=== PATIENT | female | born 1990 ===

== ENCOUNTER 2017-06-20 18:52 | Emergency (ER) | payer MEDICAID ==
[2017-06-20 18:53] VITALS: BMI 21.5
[2017-06-20 19:07] VITALS: TEMP 98.2
--- NOTE | 2017-06-20 19:53 | C.PDOC ---
History Of Present Illness Patient presents to the ED for evaluation after having a syncopal episode this morning. Patient states she woke up and was able to stand up around her bed. Shortly after, she found herself on the floor next to her bed and dresser. Patient notes she was able to attend her doctor's appointment later today. Patient notes she has been experiencing dizziness and presents for further evaluation. She denies head injury, vision change, nausea, vomiting. Time Seen by Provider: 06/20/17 19:52 Chief Complaint (Nursing): Dizziness/Lightheaded History Per: Patient History/Exam Limitations: no limitations Onset/Duration Of Symptoms: Hrs Current Symptoms Are (Timing): Better Number Of Syncopal Episodes: 1 Activity At Onset Of Symptoms: Standing Associated Symptoms Preceding Syncopal Episode: No Predromal Symptoms (Sudden Onset) Seizure Or Post-ictal Symptoms: None Fall Associated With With Symptoms: No Injury As Result Of Fall Severity: Mild Pain Scale Rating Of: 4 Additional History Per: Patient - Symptoms Of CVA Associated Symptoms: denies: New Vision Deficit(Left), New Vision Deficit(Right) Past Medical History Reviewed: Historical Data, Nursing Documentation, Vital Signs Vital Signs: Last Vital Signs Temp 98.2 F 06/20/17 20:19 Pulse 74 06/20/17 22:30 Resp 16 06/20/17 22:30 BP 123/79 06/20/17 22:30 Pulse Ox 100 06/20/17 22:30 - Medical History PMH: Anemia, Anxiety, Arthritis, Asthma, Back Problems, CAD, CVA (x 3, Protein C /S deficiency), Depression, HTN, Hypercholesterolemia, Hyperlipidemia, Migraine , Schizophrenia, Seizures, Sickle Cell Disease, TIA, Chronic Pain Surgical History: No Surg Hx - [facility] Procedures INJECT/INFUSE NEC (02/07/15) MONITORING OF POC, CARDIAC RATE, SOCIAL INSURANCE ADVISER APPROACH (11/22/15) TETANUS TOXOID ADMINIST (10/26/13) Family History: States: [place] - Social History Hx Tobacco Use: Yes (light smoker) Hx Alcohol Use: No Hx Substance Use: No - Immunization History Hx Tetanus Toxoid Vaccination: Yes Hx Influenza Vaccination: No Hx Pneumococcal Vaccination: Yes Review Of Systems Eyes: Negative for: Vision Change Gastrointestinal: Negative for: Nausea, Vomiting Musculoskeletal: Negative for: Neck Pain, Shoulder Pain, Back Pain Skin: Negative for: Rash, Lesions, Jaundice, Bruising Neurological: Positive for: Dizziness. Negative for: Weakness, Numbness, Change in Speech, Confusion, Seizures, Altered Mental Status, Headache Physical Exam - Physical Exam Appears: Non-toxic, No Acute Distress Skin: Warm, Dry Head: Normacephalic, No Other (crepitus ) Eye(s): bilateral: Normal Inspection, PERRL, EOMI, Other (no nystagmus ) Oral Mucosa: Moist Neck: Supple Cardiovascular: Rhythm Regular, No Murmur Respiratory: No Rales, No Rhonchi, No Wheezing Gastrointestinal/Abdominal: Soft, No Tenderness, No Guarding, No Rebound Back: No Vertebral Tenderness, No Decreased ROM Extremity: No Tenderness, Capillary Refill (less than 2 seconds ), No Deformity Neurological/Psych: Oriented x3, Normal Speech, Normal Cognition, No Romberg Gait: Steady ED Course And Treatment - Laboratory Results Result Diagrams: 06/20/17 20:26 06/20/17 20:26 ECG: Interpreted By Me, Viewed By Me ECG Rhythm: Sinus Rhythm (73), Nonspecific Changes O2 Sat by Pulse Oximetry: 99 (on RA) Pulse Ox Interpretation: Normal Progress Note: labs, CT Head, and EKG ordered. pt's significant other states pt has not eaten the night befor and has been up all night. Patient states she feels fine and wants to go home. Offered observation, but pt states she just wants to go home. Is aware of risks as I've explained to her, including permanent disability and . Encouraged to return Reevaluation Time: 23:09 Reassessment Condition: Improved Medical Decision Making Medical Decision Making: Upon provider reevaluation patient is feeling better, is medically stable, and requires no further treatment in the ED at this time. Patient will be discharged home . Counseling was provided and all questions were answered regarding diagnosis and need for follow up with the referred clinic. There is agreement to discharge plan. Return if symptoms persist or worsen. Disposition Counseled Patient/Family Regarding: Studies Performed, Diagnosis, Need For Followup - Disposition Referrals: [facility] [Outside] [facility] [Outside] Disposition: HOME/ ROUTINE Disposition Time: 19:52 Condition: FAIR Additional Instructions: Please return if symptoms recur Instructions: Syncope (DC) Forms: [employer] (Georgian) - Clinical Impression Clinical Impression: Syncope - Scribe Statement The provider has reviewed the documentation as recorded by the Scribe (kayley Meza) Provider Attestation: All medical record entries made by the Scribe were at my direction and personally dictated by me. I have reviewed the chart and agree that the record accurately reflects my personal performance of the history, physical exam, medical decision making, and the department course for this patient. I have also personally directed, reviewed, and agree with the discharge instructions and disposition.
[2017-06-20 20:31] LABS: BASO % 0.6 % (0.0-2.0); EOS # 0.3 K/uL (0.0-0.7); EOS % 3.8 % (0.0-4.0); HEMATOCRIT 37.5 % (34.0-47.0); LYMPH # 1.5 K/uL (1.0-4.3); LYMPH % 22.5 % (20.0-40.0); MEAN CELL VOLUME 83.6 fL (81.0-99.0); MEAN CORPUSCULAR HEMOGLOBIN 27.8 pg (27.0-31.0); MEAN CORPUSCULAR HGB CONC 33.2 g/dL (33.0-37.0); MEAN PLATELET VOLUME 7.8 fL (7.2-11.7); MONO # 0.7 K/uL (0.0-0.8); MONO % 10.1 % (0.0-10.0); RED CELL DISTRIBUTION WIDTH 13.1 % (11.5-14.5); WHITE BLOOD COUNT 6.9 K/uL (4.8-10.8)
[2017-06-20 20:39] LABS: RBC URINE < 1 /hpf (0-3); URINE BILIRUBIN NEGATIVE (NEGATIVE); URINE BLOOD NEGATIVE (NEGATIVE); URINE COLOR Yellow (YELLOW); URINE GLUCOSE (UA) NORMAL (Normal); URINE KETONE NEGATIVE (NEGATIVE); URINE LEUKOCYTE ESTERASE NEG Leu/uL (Negative); URINE PROTEIN NEGATIVE (NEGATIVE); URINE UROBILINOGEN NORMAL mg/dL (0.2-1.0); WBC URINE 1 /hpf (0-5)
[2017-06-20 20:41] LABS: CHLORIDE 105 mmol/L (98-107); POTASSIUM 3.5 mmol/L (3.6-5.2); SODIUM 140 mmol/L (132-148)
[2017-06-20 20:43] LABS: GFR AFRICAN-AMERICAN > 60
[2017-06-20 20:44] LABS: ALB/GLOB RATIO 1.1 (1.0-2.1); ALKALINE PHOSPHATASE 69 U/L (38-126); AST/SGOT 20 U/L (14-36); BILIRUBIN,TOTAL 0.4 mg/dL (0.2-1.3); BLOOD UREA NITROGEN 6 mg/dL (7-17); CARBON DIOXIDE 25 mmol/L (22-30); TOTAL PROTEIN 6.6 g/dL (6.3-8.3)
[2017-06-20 20:45] LABS: CALCIUM 8.8 mg/dl (8.6-10.4)
[2017-06-20 21:07] LABS: ALT/SGPT 25 U/L (9-52); GLUCOSE,RANDOM 91 mg/dL (65-105)
--- NOTE | 2017-06-20 21:26 | CT ---
EXAM: CT Head Without Intravenous Contrast CLINICAL HISTORY: 27 years old, female; Signs and symptoms; Syncope and collapse TECHNIQUE: Axial computed tomography images of the head/brain without intravenous contrast. All CT scans at this facility use one or more dose reduction techniques, viz.: automated exposure control; ma/kV adjustment per patient size (including targeted exams where dose is matched to indication; i.e. head); or iterative reconstruction technique. EXAM DATE/TIME: 06/20/2017 8:11 PM COMPARISON: CT - HEAD W/O (CODE STROKE) 03/06/2016 6:54:54 PM FINDINGS: Brain: Ventricles are normal in size and configuration. There is no midline shift. There are no intra-axial or extra-axial mass lesions or areas of hemorrhage. There are no abnormal fluid collections. Ellison-white differentiation is maintained. Ventricles: See above. Bones: Cranial vault is intact. Soft tissues: unremarkable Sinuses: There is no acute sinusitis. Ears and mastoids: Middle ears and mastoids are unremarkable Orbits: Orbital contents are unremarkable. IMPRESSION: No acute intracranial abnormality
[2017-06-20 23:12] VITALS: O2SAT 99
[2017-06-20 23:30] VITALS: BP 100/68; PULSE 64; RESP 18
--- NOTE | 2017-06-23 20:48 | CARD ---
APPROVED REPORT EKG Measurement Heart [id number] <Conclusion> Normal sinus rhythm with sinus arrhythmia Normal ECG
== END 2017-06-20 23:00 | disposition home or self-care (01) ==
LOC: C.ER 18:52
DX: R55 Syncope and collapse (principal)

== ENCOUNTER 2017-07-22 17:06 | Observation (INO) | payer MEDICAID ==
[2017-07-22 17:07] VITALS: BMI 21.5
--- NOTE | 2017-07-22 17:52 | C.PDOC ---
History Of Present Illness <Catherine De Dios - Last Filed: 07/22/17 18:57> <Qasim Jansen - Last Filed: 07/22/17 20:19> 27 yo female w/PMHx of LLE DVT,substance abuser, come in for evaluation of left lower leg pain gradually developed for past week. Pt sts, noted some rash to left lower leg. Otherwise, pt denies known direct trauma or injury, fever, chills, headache, dizziness, neck pain, CP, SOB, dyspnea, diaphoresis, palpitation, abd. pain, N/V/D, denies weakness, sensory or vascular deficit to Left leg. Ambulate to ED, appears slightly high. (Catherine De Dios) left leg pain x1 week no swelling. ddimer elevated will admit for venous duplex in am. (Qasim Jansen) History Per: Patient <Catherine De Dios - Last Filed: 07/22/17 18:57> <Qasim Jansen - Last Filed: 07/22/17 20:19> Time Seen by Provider: 07/22/17 17:41 Chief Complaint (Nursing): Lower Extremity Problem/Injury Past Medical History Reviewed: Historical Data, Nursing Documentation, Vital Signs - Medical History PMH: Anemia, Anxiety, Arthritis, Asthma, Back Problems, CAD, CVA (x 3, Protein C /S deficiency), Depression, HTN, Hypercholesterolemia, Hyperlipidemia, Migraine , Schizophrenia, Seizures, Sickle Cell Disease, TIA, Chronic Pain Denies: Chronic Kidney Disease Family History: States: Unknown Family Hx, [place] - Social History Hx Tobacco Use: Yes (light smoker) Hx Alcohol Use: No Hx Substance Use: No - Immunization History Hx Tetanus Toxoid Vaccination: Yes Hx Influenza Vaccination: No Hx Pneumococcal Vaccination: Yes <Catherine De Dios - Last Filed: 07/22/17 18:57> Review Of Systems Except As Marked, All Systems Reviewed And Found Negative. Constitutional: Negative for: Fever, Chills ENT: Negative for: Throat Pain Cardiovascular: Negative for: Chest Pain, Palpitations Respiratory: Negative for: Cough, Shortness of Breath, Wheezing Gastrointestinal: Negative for: Nausea, Vomiting, Abdominal Pain Musculoskeletal: Positive for: Leg Pain. Negative for: Neck Pain, Back Pain Skin: Positive for: Rash Neurological: Negative for: Weakness, Numbness, Altered Mental Status, Headache , Dizziness <Catherine De Dios - Last Filed: 07/22/17 18:57> Physical Exam - Physical Exam Appears: Well, Non-toxic, No Acute Distress Skin: Normal Color, Warm, Dry, Rash (scattered macular erythematous rash to posterior aspect left calf/ankle. No flactulance.) Head: Normacephalic Eye(s): bilateral: PERRL Nose: No Flaring, No Discharge Oral Mucosa: Moist, No Drooling Tongue: Normal Appearing Lips: Normal Appearing Throat: No Erythema, No Drooling Neck: Supple Cardiovascular: Rhythm Regular, No Murmur, No JVD Respiratory: No Decreased Breath Sounds, No Accessory Muscle Use, No Stridor, No Wheezing Gastrointestinal/Abdominal: Soft, No Tenderness, No Distention, No Guarding Back: No CVA Tenderness Extremity: Normal ROM, Tenderness (mild over posterior aspect Left ankle), Calf Tenderness (Left , mild), Capillary Refill (less than 2sec to B/L LEs.), No Deformity, No Swelling Neurological/Psych: Oriented x3, Normal Motor, Normal Sensation, Normal Reflexes <Catherine De Diso - Last Filed: 07/22/17 18:57> ED Course And Treatment - Laboratory Results Result Diagrams: 07/22/17 18:19 07/22/17 18:19 Lab Interpretation: Normal O2 Sat by Pulse Oximetry: 100 Pulse Ox Interpretation: Normal Progress Note: Pt is resting comfortably in bed, not in any apparent distress., . Afebrile, hemodynamicaly stable. non-toxic. PulsEOx 100% RA. LLE: left calf pain, FAROM, no neurovascular deficits. Neurologicaly intact. Blood work review and appears normal. Doppler US LLE- pending. <Catherine De Dios - Last Filed: 07/22/17 18:57> - Laboratory Results Result Diagrams: 07/22/17 18:19 07/22/17 18:19 <Qasim Jansen - Last Filed: 07/22/17 20:19> Disposition - Disposition Disposition Time: 18:59 <Catherine De Dios - Last Filed: 07/22/17 18:57> <Qasim Jansen P - Last Filed: 07/22/17 20:19> - Disposition Condition: STABLE Forms: [employer] (Danish) - Clinical Impression Clinical Impression: Leg pain, left Physician Patient Turnover Patient Signed Over To: Qasim Jansen Handoff Comments: Doppler US LLE r/o DVT, re-eval, dispo <Catherine De Dios - Last Filed: 07/22/17 18:57>
[2017-07-22] MEDS ORDERED: Sodium Chloride 0.9% 1,000 ML IV ONE (17:53)
[2017-07-22 18:27] LABS: BASO % 0.4 % (0.0-2.0); EOS # 0.2 K/uL (0.0-0.7); EOS % 3.5 % (0.0-4.0); HEMATOCRIT 35.9 % (34.0-47.0); LYMPH # 1.4 K/uL (1.0-4.3); LYMPH % 20.7 % (20.0-40.0); MEAN CELL VOLUME 84.3 fL (81.0-99.0); MEAN CORPUSCULAR HEMOGLOBIN 27.5 pg (27.0-31.0); MEAN CORPUSCULAR HGB CONC 32.6 g/dL (33.0-37.0); MEAN PLATELET VOLUME 7.5 fL (7.2-11.7); MONO # 0.8 K/uL (0.0-0.8); MONO % 11.2 % (0.0-10.0); RED CELL DISTRIBUTION WIDTH 13.9 % (11.5-14.5); WHITE BLOOD COUNT 6.8 K/uL (4.8-10.8)
[2017-07-22 18:33] LABS: CHLORIDE 105 mmol/L (98-107); POTASSIUM 3.8 mmol/L (3.6-5.2); SODIUM 139 mmol/L (132-148)
[2017-07-22 18:36] LABS: BLOOD UREA NITROGEN 13 mg/dL (7-17); CARBON DIOXIDE 25 mmol/L (22-30); GFR AFRICAN-AMERICAN > 60
[2017-07-22 18:37] LABS: CALCIUM 8.3 mg/dl (8.6-10.4); GLUCOSE,RANDOM 96 mg/dL (65-105)
[2017-07-22] MEDS ORDERED: Sodium Chloride 0.9% 1,000 ML ONE (19:15)
[2017-07-22] MEDS ORDERED: Enoxaparin 40 mg Syringe SC ONE (22:22)
[2017-07-22 23:58] VITALS: O2SAT 100
[2017-07-23 08:31] VITALS: BP 119/81; PULSE 74; RESP 20; TEMP 97
--- NOTE | 2017-07-23 13:13 | VASCLAB ---
PROCEDURE: Lower Extremity Venous Duplex Exam. HISTORY: Left lower leg pain, redness PRIORS: None. TECHNIQUE: Bilateral common femoral, femoral, popliteal and posterior tibial, peroneal and great saphenous veins were evaluated. Flow was assessed with color Doppler, compressibility, assessment of phasic flow and augmentation response. Report prepared by Kyle Ambrose, ALISON, RVT FINDINGS: RIGHT: 1. Common Femoral Vein: 1.1. Compressibility - Fully compressible: Thrombus - None : Flow - Phasic: Augmentation -Normal: Reflux - None. 2. Femoral Vein: 2.1. Compressibility - Fully compressible: Thrombus - None : Flow - Phasic: Augmentation -Normal: Reflux - None. 3. Popliteal Vein: 3.1. Compressibility - Fully compressible: Thrombus - None : Flow - Phasic: Augmentation -Normal: Reflux - None. 4. Posterior Tibial Vein: 4.1. Compressibility - Fully compressible: Thrombus - None: Flow - Phasic: Augmentation -Normal: Reflux - None. 5. Peroneal Vein: 5.1. Compressibility - Fully compressible: Thrombus - None: Flow - Phasic: Augmentation -Normal: Reflux - None. 6. Great Saphenous Vein: 6.1. Compressibility - Fully compressible: Thrombus - None: Flow - Phasic: Augmentation - Normal: Reflux - None. LEFT: 1. Common Femoral Vein: 1.1. Compressibility - Fully compressible: Thrombus - None: Flow - Phasic: Augmentation -Normal: Reflux - None. 2. Femoral Vein: 2.1. Compressibility - Fully compressible: Thrombus - None: Flow - Phasic: Augmentation -Normal: Reflux - None. 3. Popliteal Vein: 3.1. Compressibility - Fully compressible: Thrombus - None : Flow - Phasic: Augmentation -Normal: Reflux - None. 4. Posterior Tibial Vein: 4.1. Compressibility - Fully compressible: Thrombus - None: Flow - Phasic: Augmentation -Normal: Reflux - None. 5. Peroneal Vein: 5.1. Compressibility - Fully compressible: Thrombus - None: Flow - Phasic: Augmentation -Normal: Reflux - None. 6. Great Saphenous Vein: 6.1. Compressibility - Fully compressible: Thrombus - None: Flow - Phasic: Augmentation - Normal: Reflux - None. OTHER FINDINGS: Right: None significant. Left: None significant. IMPRESSION: Right: No evidence of deep or superficial vein thrombosis of the right lower extremity. Normal valve function noted of the right side. Left: No evidence of deep or superficial vein thrombosis of the left lower extremity. Normal valve function noted of the left side.
--- NOTE | 2017-07-23 13:56 | PCM.PSYCH ---
Initial Psychiatric Evaluation - Initial Psychiatric Evaluation Type of Admission: Voluntary Legal Status: Capacity Chief Complaint (in patient's own words): "I'm fine" History of Present Illness and Precipitating Events: The pt is seen, chart reviewed, case discussed. Consult was requested to rule out depression, but then the staff said it was b/ c DYFS was called or DYFS called. The pt reports that DYFS had been involved b/c allegedly she had used drugs while , ie barbiturates. She claims she didn;t know there was barbs in one of her meds. She denies current drug/alcohol use, but she refused drug test when insurance underwriter ordered today. She also admits to having used cocaine "long ago." She also denies any depressive sxs or anxiety attacks, OCD, adeel or psychosis. She does feel anxious about her medical conditions and symptoms. Support and psychoeducation given. Current Medications: Active Medications Generic Name Dose Route Start Last Admin Trade Name Billyq PRN Reason Stop Dose Admin Apixaban 5 mg 07/23/17 10:00 07/23/17 10:09 Eliquis PO 5 mg BID SIGIFREDO Administration Docusate Sodium 100 mg 07/23/17 10:00 07/23/17 10:09 Colace PO 100 mg BID SIGIFREDO Administration Famotidine 20 mg 07/23/17 10:00 07/23/17 10:10 Pepcid PO 20 mg DAILY SIGIFREDO Administration Gabapentin 600 mg 07/23/17 10:00 07/23/17 10:09 Neurontin PO 600 mg TID SIGIFREDO Administration Pneumococcal Polyvalent Vaccine 0.5 ml 07/24/17 10:00 Pneumovax 23 Vaccine IM 07/24/17 10:01 .ONCE ONE Rosuvastatin Calcium 5 mg 07/23/17 22:00 Crestor PO HS SIGIFREDO Topiramate 100 mg 07/23/17 10:00 07/23/17 10:10 Topamax PO 100 mg BID SIGIFREDO Administration Past Psychiatric History - Past Psychiatric History Previous Treatment History: None Pertinent Medical Hx (Current Medical&Sleep Prob, Allergies): Allergies Allergy/AdvReac Type Severity Reaction Status Date / Time ketorolac tromethamine Allergy Mild SWELLING Verified 07/22/17 17:40 [From Toradol] naproxen [From Naprosyn] Allergy Mild URTICARIA Verified 07/22/17 17:40 polyethylene glycol 3350 Allergy Mild RASH Verified 07/22/17 17:40 [From Miralax] shellfish derived Allergy Mild ANAPHYLAXIS Verified 07/22/17 17:40 mushroom Allergy ANAPHYLAXIS Verified 07/22/17 17:40 ibuprofen [From Motrin] AdvReac Mild vomiting Verified 07/22/17 17:40 blood PORK AdvReac DIARRHEA Verified 07/22/17 17:40 nguyen Allergy Severe RASH Uncoded 07/22/17 17:40 Apixaban [Eliquis] 5 mg PO BID #0 tab 04/16/16 Atorvastatin [Lipitor] 10 mg PO HS 11/08/16 Gabapentin [Neurontin] 600 mg PO TID 11/08/16 HYDROmorphone [Dilaudid] 4 mg PO Q8 PRN 06/10/17 Topiramate [Topamax] 100 mg PO BID 06/10/17 Docusate Sodium [Colace] 100 mg PO BID #14 capsule 06/29/17 Famotidine [Pepcid] 20 mg PO 07/22/17 Review of Systems - Neurological Neurological: UNREMARKABLE - Psychiatric Psychiatric: Abnormal Sleep Pattern, Anxiety. absent: Depression, Hallucinations, Homicidal Ideation, Suicidal Ideation Mental Status Examination - Personal Presentation Personal Presentation: Looks stated age - Motor Activity Motor Activity: Calm - Reliability in Providing Information Reliability in Providing Information: Good - Speech Speech: Organized - Mood Mood: Neutral - Formal Thought Process Formal Thought Process: No Impairment - Cognitive Functions Orientation: Person, Place, Situation, Time Sensorium: Alert Attention/Concentration: Attentive Estimate of Intelligence: Average Judgement: Intact, as evidence by: Insight regarding need for hospitalization Memory: Recent intact, as evidence by: Ability to recall events of the day, Remote intact, as evidenced by: Abilit to recall sig. 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
--- NOTE | 2017-07-23 14:42 | CP.PCM.PN ---
Subjective - Date & Time of Evaluation Date of Evaluation: 07/23/17 Time of Evaluation: 12:10 - Subjective Subjective: Pt seen today awake , alert, ox3, denies any chest pain, sob, dizziness, headache, N/V/D c/p LLE pain and cramping venous duplex B/L LE - negative Objective - Vital Signs/Intake and Output Vital Signs (last 24 hours): Temp Pulse Resp BP Pulse Ox 97 F L 74 20 119/81 100 07/23/17 08:30 07/23/17 08:30 07/23/17 08:30 07/23/17 08:30 07/23/17 08:30 Intake and Output: 07/23/17 07/23/17 06:59 18:59 Intake Total 480 Balance 480 - Medications Medications: Current Medications Apixaban (Eliquis) 5 mg PO BID [facility] Last Admin: 07/23/17 10:09 Dose: 5 mg Docusate Sodium (Colace) 100 mg PO BID [facility] Last Admin: 07/23/17 10:09 Dose: 100 mg Famotidine (Pepcid) 20 mg PO DAILY [facility] Last Admin: 07/23/17 10:10 Dose: 20 mg Gabapentin (Neurontin) 600 mg PO TID [facility] Last Admin: 07/23/17 14:20 Dose: 600 mg Pneumococcal Polyvalent Vaccine (Pneumovax 23 Vaccine) 0.5 ml IM .ONCE ONE Stop: 07/24/17 10:01 Rosuvastatin Calcium (Crestor) 5 mg PO HS [facility] Topiramate (Topamax) 100 mg PO BID [facility] Last Admin: 07/23/17 10:10 Dose: 100 mg - Constitutional Appears: Well, No Acute Distress - Respiratory Exam Respiratory Exam: Clear to Ausculation Bilateral, NORMAL BREATHING PATTERN - Extremities Exam Extremities Exam: Full ROM, Tenderness (LLE ) - Neurological Exam Neurological Exam: Alert, Awake, Oriented x3 Assessment and Plan - Assessment and Plan (Free Text) Assessment: 27 yr old female admitted for LLE pain venous duplex - negative seen by Dr. Merchant , cleared for discharge from psychiatry standpoint urine for drug screen requested and patient refused to give sample D/w Dr. Sierra, cleared for discharge home today and f/u with PMD office in 1 week SW/CM made aware of discharge and if any need to contact dyfs
--- NOTE | 2017-07-23 23:04 | CP.PCM.DIS ---
Provider - Provider Date of Admission: 07/22/17 20:17 Attending physician: Jerel Sierra MD Hospital Course - Lab Results Lab Results: Most Recent Lab Values WBC 6.8 K/uL (4.8-10.8) 07/22/17 18:19 RBC 4.26 Mil/uL (3.80-5.20) 07/22/17 18:19 Hgb 11.7 g/dL (11.0-16.0) 07/22/17 18:19 Hct 35.9 % (34.0-47.0) 07/22/17 18:19 MCV 84.3 fL (81.0-99.0) 07/22/17 18:19 MCH 27.5 pg (27.0-31.0) 07/22/17 18:19 MCHC 32.6 g/dL (33.0-37.0) L 07/22/17 18:19 RDW 13.9 % (11.5-14.5) 07/22/17 18:19 Plt Count 207 K/uL (130-400) 07/22/17 18:19 MPV 7.5 fL (7.2-11.7) 07/22/17 18:19 Neut % (Auto) 64.2 % (50.0-75.0) 07/22/17 18:19 Lymph % (Auto) 20.7 % (20.0-40.0) 07/22/17 18:19 Crockett % (Auto) 11.2 % (0.0-10.0) H 07/22/17 18:19 Eos % (Auto) 3.5 % (0.0-4.0) 07/22/17 18:19 Baso % (Auto) 0.4 % (0.0-2.0) 07/22/17 18:19 Neut # 4.4 K/uL (1.8-7.0) 07/22/17 18:19 Lymph # 1.4 K/uL (1.0-4.3) 07/22/17 18:19 Crockett # 0.8 K/uL (0.0-0.8) 07/22/17 18:19 Eos # 0.2 K/uL (0.0-0.7) 07/22/17 18:19 Baso # 0.0 K/uL (0.0-0.2) 07/22/17 18:19 Retic Count 1.0 % (0.5-1.5) 07/22/17 18:19 D-Dimer, Quantitative 430 ng/mlDDU (0-243) H 07/22/17 19:59 Sodium 139 mmol/L (132-148) 07/22/17 18:19 Potassium 3.8 mmol/L (3.6-5.2) 07/22/17 18:19 Chloride 105 mmol/L (98-107) 07/22/17 18:19 Carbon Dioxide 25 mmol/L (22-30) 07/22/17 18:19 Anion Gap 13 (10-20) 07/22/17 18:19 BUN 13 mg/dL (7-17) 07/22/17 18:19 Creatinine 0.8 MG/DL (0.7-1.2) 07/22/17 18:19 Est GFR ( Amer) > 60 07/22/17 18:19 Est GFR (Non-Af Amer) > 60 07/22/17 18:19 Random Glucose 96 mg/dL (65-105) 07/22/17 18:19 Calcium 8.3 mg/dl (8.6-10.4) L 07/22/17 18:19 - Hospital Course Hospital Course: 27 yo female w/PMHx of LLE DVT,substance abuser, come in for evaluation of left lower leg pain gradually developed for past week. Pt sts, noted some rash to left lower leg. Otherwise, pt denies known direct trauma or injury, fever, chills, headache, dizziness, neck pain, CP, SOB, dyspnea, diaphoresis, palpitation, abd. pain, N/V/D, denies weakness, sensory or vascular deficit to Left leg. Ambulate to ED, appears slightly high. (Catherine De Dios) left leg pain x1 week no swelling. ddimer elevated r venous duplex neg, clear for discharge Discharge Plan - Follow Up Plan Condition: STABLE Disposition: HOME/ ROUTINE Instructions: Deep Venous Thrombosis (DC), Regular Diet (DC)
--- NOTE | 2017-07-24 09:19 | CP.PCM.HP ---
History of Present Illness - History of Present Illness History of Present Illness: 27 yo female w/PMHx of LLE DVT,substance abuser, come in for evaluation of left lower leg pain gradually developed for past week. Pt sts, noted some rash to left lower leg. Otherwise, pt denies known direct trauma or injury, fever, chills, headache, dizziness, neck pain, CP, SOB, dyspnea, diaphoresis, palpitation, abd. pain, N/V/D, denies weakness, sensory or vascular deficit to Left leg. Ambulate to ED, appears slightly high. (Catherine De Dios) left leg pain x1 week no swelling. ddimer elevated will admit for venous duplex in am. (Qasim Jansen) Review of Systems - Review of Systems Systems not reviewed;Unavailable: Acuity of Condition - Constitutional Constitutional: Fatigue - Musculoskeletal Musculoskeletal: Back Pain, Joint Swelling, Radiating Pain into Limb - Psychiatric Psychiatric: Anxiety Past Patient History - Infectious Disease Hx of Infectious Diseases: None - Tetanus Immunizations Tetanus Immunization: Unknown - Past Medical History & Family History Past Medical History?: Yes - Past Social History Smoking Status: Current Some Days Smoker - CARDIAC Hx Hypercholesterolemia: Yes Hx Hypertension: Yes - PULMONARY Hx Asthma: Yes - NEUROLOGICAL Hx Migraine: Yes Hx Seizures: Yes Hx Transient Ischemic Attacks (TIA): Yes - HEENT Hx HEENT Problems: No Other/Comment: wears glasses - RENAL Hx Chronic Kidney Disease: No - ENDOCRINE/METABOLIC Hx Endocrine Disorders: No Other/Comment: pre diabetic - HEMATOLOGICAL/ONCOLOGICAL Hx Anemia: Yes Hx Sickle Cell Disease: Yes - INTEGUMENTARY Hx Dermatological Problems: No - MUSCULOSKELETAL/RHEUMATOLOGICAL Hx Falls: No - GASTROINTESTINAL Hx Gastrointestinal Disorders: No - GENITOURINARY/GYNECOLOGICAL Hx Genitourinary Disorders: Yes - PSYCHIATRIC Hx Anxiety: Yes Hx Depression: Yes Hx Schizophrenia: Yes Hx Substance Use: No - SURGICAL HISTORY Hx Surgeries: Yes (L ovarian cyst) - ANESTHESIA Hx Anesthesia: Yes Hx Anesthesia Reactions: Yes (states "couldn't breathe") Meds Allergies/Adverse Reactions: Allergies Allergy/AdvReac Type Severity Reaction Status Date / Time ketorolac tromethamine Allergy Mild SWELLING Verified 07/22/17 17:40 [From Toradol] naproxen [From Naprosyn] Allergy Mild URTICARIA Verified 07/22/17 17:40 polyethylene glycol 3350 Allergy Mild RASH Verified 07/22/17 17:40 [From Miralax] shellfish derived Allergy Mild ANAPHYLAXIS Verified 07/22/17 17:40 mushroom Allergy ANAPHYLAXIS Verified 07/22/17 17:40 ibuprofen [From Motrin] AdvReac Mild vomiting Verified 07/22/17 17:40 blood PORK AdvReac DIARRHEA Verified 07/22/17 17:40 nguyen Allergy Severe RASH Uncoded 07/22/17 17:40 Physical Exam - Constitutional Appears: No Acute Distress - Head Exam Head Exam: ATRAUMATIC, NORMAL INSPECTION, NORMOCEPHALIC - Eye Exam Eye Exam: EOMI, Normal appearance, PERRL Pupil Exam: NORMAL ACCOMODATION, PERRL - Respiratory Exam Respiratory Exam: Clear to Auscultation Bilateral, NORMAL BREATHING PATTERN - Cardiovascular Exam Cardiovascular Exam: REGULAR RHYTHM, +S1, +S2 - GI/Abdominal Exam GI & Abdominal Exam: Normal Bowel Sounds, Soft. absent: Tenderness Results - Vital Signs Recent Vital Signs: Last Vital Signs Temp 97 F L 07/23/17 08:30 Pulse 74 07/23/17 08:30 Resp 20 07/23/17 08:30 BP 119/81 07/23/17 08:30 Pulse Ox 100 07/23/17 08:30 - Labs Result Diagrams: 07/22/17 18:19 07/22/17 18:19 Assessment & Plan (1) DVT (deep venous thrombosis) Status: Acute (2) Depression Status: Acute (3) Narcotic abuse, continuous Status: Chronic
[2017-07-24] MEDS ORDERED: Pneumococcal 23-Valent Vaccine IM ONE (10:00)
== END 2017-07-23 15:05 | disposition home or self-care (01) ==
LOC: C.ER 17:06 → C.3T 20:17
PROVIDERS: ADMIT Internal Medicine; ATTEND Internal Medicine
DX: I82.5Z2 Chronic embolism and thrombosis of unspecified deep veins of left distal lower extremity (principal); D57.1 Sickle-cell disease without crisis; E78.5 Hyperlipidemia, unspecified; F17.200 Nicotine dependence, unspecified, uncomplicated; F32.9 Major depressive disorder, single episode, unspecified; I10 Essential (primary) hypertension; I25.10 Atherosclerotic heart disease of native coronary artery without angina pectoris; F14.10 Cocaine abuse, uncomplicated
CPT/HCPCS: 80048; 85025; 85044; 85378; 93970; 96360; 99285; G0378; J1650; J7040

== ENCOUNTER 2017-08-16 02:34 | Emergency (ER) | payer MEDICAID ==
[2017-08-16 02:35] VITALS: BMI 26.6
[2017-08-16] MEDS ORDERED: Sodium Chloride 0.9% 1,000 ML IV STA (02:51)
[2017-08-16] MEDS ORDERED: Sodium Chloride 0.9% 1,000 ML ONE (03:08)
[2017-08-16 03:22] LABS: BASO # 0.1 K/uL (0.0-0.2); BASO % 0.9 % (0.0-2.0); EOS # 0.1 K/uL (0.0-0.7); EOS % 2.1 % (0.0-4.0); HEMATOCRIT 38.2 % (34.0-47.0); LYMPH # 1.1 K/uL (1.0-4.3); MEAN CELL VOLUME 82.7 fL (81.0-99.0); MEAN CORPUSCULAR HEMOGLOBIN 28.1 pg (27.0-31.0); MEAN CORPUSCULAR HGB CONC 33.9 g/dL (33.0-37.0); MONO # 0.6 K/uL (0.0-0.8); MONO % 9.9 % (0.0-10.0); RED CELL DISTRIBUTION WIDTH 13.4 % (11.5-14.5); WHITE BLOOD COUNT 6.4 K/uL (4.8-10.8)
[2017-08-16 03:32] LABS: CHLORIDE 105 mmol/L (98-107); POTASSIUM 3.9 mmol/L (3.6-5.2); SODIUM 136 mmol/L (132-148)
[2017-08-16 03:34] LABS: GFR AFRICAN-AMERICAN > 60
[2017-08-16 03:35] LABS: ALB/GLOB RATIO 0.9 (1.0-2.1); ALKALINE PHOSPHATASE 79 U/L (38-126); ALT/SGPT 42 U/L (9-52); AST/SGOT 49 U/L (14-36); BILIRUBIN,TOTAL 0.5 mg/dL (0.2-1.3); BLOOD UREA NITROGEN 13 mg/dL (7-17); CARBON DIOXIDE 20 mmol/L (22-30); GLUCOSE,RANDOM 95 mg/dL (65-105); TOTAL PROTEIN 8.2 g/dL (6.3-8.3)
--- NOTE | 2017-08-16 03:35 | C.PDOC ---
History Of Present Illness 27 y/o F c PMHx sickle cell disease p/w fever x 1 day. She reports feeling generally unwell, headache, nausea. She denies any actual pain. She denies any joint pains, redness, or swelling. She denies stiff neck. Denies recent travel. Denies cough or hemoptysis. When questionsed, she notes a small focal area of chest pain on the L parasternal chest. She took acetaminophen prior to arrival about 5 hours ago. She states Tmax at home was 102.6. She also notes feeling as though she needs to strain to urinate but states this has been occurring for a long time. She also notes L lower leg swelling but notes she already had an US to rule out DVT for it. Time Seen by Provider: 08/16/17 02:43 Chief Complaint (Nursing): Flu-like Symptoms Past Medical History Vital Signs: Last Vital Signs Temp 98.5 F 08/16/17 02:46 Pulse 99 H 08/16/17 02:46 Resp 16 08/16/17 02:46 BP 119/75 08/16/17 02:46 Pulse Ox 99 08/16/17 03:38 - Medical History PMH: Anemia, Anxiety, Arthritis, Asthma, Back Problems, CAD, CVA (x 3, Protein C /S deficiency), Depression, HTN, Hypercholesterolemia, Hyperlipidemia, Migraine , Schizophrenia, Seizures, Sickle Cell Disease, TIA, Chronic Pain Denies: Chronic Kidney Disease - [facility] Procedures INJECT/INFUSE NEC (02/07/15) MONITORING OF POC, CARDIAC RATE, 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 Respiratory: Negative for: Shortness of Breath Gastrointestinal: Negative for: Vomiting Physical Exam - Physical Exam Appears: Well, Non-toxic, No Acute Distress Skin: No Rash Head: Atraumatic, Normacephalic Eye(s): bilateral: PERRL, EOMI Oral Mucosa: Moist Throat: No Erythema, No Exudate Neck: Normal ROM (No rigidity), No Midline Cervical Tenderness, Supple Chest: Tenderness (reproducibe in focal L parasternal area) Cardiovascular: Rhythm Regular, No Friction Rub Respiratory: Normal Breath Sounds, No Rales, No Rhonchi, No Wheezing Gastrointestinal/Abdominal: Soft, No Tenderness, No Distention Back: No CVA Tenderness, No Vertebral Tenderness Extremity: No Tenderness, Swelling (L lower leg), Other (No extremity erythema, tenderness, or effusions) Pulses: Left Radial: Normal, Right Radial: Normal Neurological/Psych: Normal Speech, Normal Cognition Gait: Steady ED Course And Treatment - Laboratory Results Result Diagrams: 08/16/17 03:19 08/16/17 03:19 O2 Sat by Pulse Oximetry: 99 Medical Decision Making Medical Decision Making: Fever in sickle cell patient. Will consider UTI/PNA/ACS. Most likely viral illness. Based on physical exam, unlikely to be osteomyelitis. UA shows no infection. CXR shows no infiltrate or consolidation. Labs unremarkable. No leukocytosis, normal retic count. Will discharge home, advised f/u with PMD, instructed to return to ED immediately for worsening fever, dyspnea, cough, chest pain, joint swelling or redness or pain, dysuria. Disposition - Disposition Referrals: Bruce Jordan MD [Medical Doctor] - Disposition: HOME/ ROUTINE Disposition Time: 05:13 Condition: STABLE Instructions: Fever in Adults (ED) Forms: [facility] (Australian) - Clinical Impression Clinical Impression: Fever
[2017-08-16 03:36] LABS: CALCIUM 8.9 mg/dl (8.6-10.4)
[2017-08-16 04:56] LABS: RBC URINE < 1 /hpf (0-3); URINE BILIRUBIN NEGATIVE (NEGATIVE); URINE BLOOD NEGATIVE (NEGATIVE); URINE COLOR Yellow (YELLOW); URINE GLUCOSE (UA) NORMAL (Normal); URINE KETONE NEGATIVE (NEGATIVE); URINE LEUKOCYTE ESTERASE NEG Leu/uL (Negative); URINE PROTEIN NEGATIVE (NEGATIVE); URINE UROBILINOGEN NORMAL mg/dL (0.2-1.0); WBC URINE 1 /hpf (0-5)
[2017-08-16 05:35] VITALS: BP 111/68; PULSE 88; RESP 18; TEMP 97.8; O2SAT 100
--- NOTE | 2017-08-16 09:11 | RAD ---
HISTORY: fever COMPARISON: Chest x-ray 10/10/2016 TECHNIQUE: Chest PA and lateral FINDINGS: LUNGS: No focal consolidation is seen. PLEURA: No pleural effusion is identified. CARDIOVASCULAR: Heart size is within normal limits. OSSEOUS STRUCTURES: Visualized osseous structures are unremarkable. VISUALIZED UPPER ABDOMEN: Unremarkable. OTHER FINDINGS: None. IMPRESSION: No acute cardiopulmonary process seen.
== END 2017-08-16 05:43 | disposition home or self-care (01) ==
LOC: C.ER 02:34
DX: R50.9 Fever, unspecified (principal)
CPT/HCPCS: 71020; 80053; 81001; 84703; 85025; 85044; 87040; 87086; 99284; J7040

== ENCOUNTER 2017-11-19 21:35 | Inpatient (IN) | payer MEDICAID ==
[2017-11-19 21:35] VITALS: BMI 26.6
--- NOTE | 2017-11-19 22:05 | C.PDOC ---
History Of Present Illness 27 year old female with PMHx of epilepsy since age 7, CVA, heart attack, sickle cell presents to the ED for evaluation after having a seizure. Patient reports she had a seizure yesterday and she was holding a glass while it occurred and she cut both her arms and neck. Patient she has been having seizures on and off for the past 2 months, most recent one 2 days ago and the one yesterday. Patient states she is taking Topamax, Eliquis, and Dilaudid with questionable compliance patient reports she has a neurologist Dr. Puckett but does not see him regularly and has not seen her PMD in 2 months. Time Seen by Provider: 11/19/17 21:46 Chief Complaint (Nursing): Seizure History Per: Patient History/Exam Limitations: no limitations Recent Seizure Activity Began: Just Before Arrival Number Of Seizures: Multiple Length Of Seizures (Duration): Unknown Quality Of Seizure: Generalized Precipitating Factor(s): None Post-ictal Period: No Recent travel outside of the [place]: No Additional History Per: Patient Past Medical History Reviewed: Historical Data, Nursing Documentation, Vital Signs Vital Signs: Last Vital Signs Temp 98.4 F 11/19/17 21:38 Pulse 72 11/19/17 21:38 Resp 20 11/19/17 21:38 BP 114/72 11/19/17 21:38 Pulse Ox 98 11/19/17 23:50 - Medical History PMH: Anemia, Anxiety, Arthritis, Asthma, Back Problems, CAD, CVA (x 3, Protein C /S deficiency), Depression, HTN, Hypercholesterolemia, Hyperlipidemia, Migraine , Schizophrenia, Seizures, Sickle Cell Disease, TIA, Chronic Pain Denies: Chronic Kidney Disease Surgical History: No Surg Hx - [facility] Procedures INJECT/INFUSE NEC (02/07/15) MONITORING OF POC, CARDIAC RATE, 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 (11/22/15) TETANUS TOXOID ADMINIST (10/26/13) Family History: States: Unknown Family Hx, [place] - Social History Hx Tobacco Use: Yes (light smoker) Hx Alcohol Use: Yes Hx Substance Use: No - Immunization History Hx Tetanus Toxoid Vaccination: Yes Hx Influenza Vaccination: No Hx Pneumococcal Vaccination: Yes Review Of Systems Constitutional: Negative for: Fever, Chills ENT: Negative for: Ear Pain, Ear Discharge Cardiovascular: Negative for: Chest Pain, Palpitations Respiratory: Negative for: Cough, Shortness of Breath Gastrointestinal: Negative for: Nausea, Vomiting, Abdominal Pain Genitourinary: Negative for: Dysuria, Hematuria Skin: Positive for: Other (laceration to B/L arms) Neurological: Negative for: Weakness, Numbness, Headache Physical Exam - Physical Exam Appears: Non-toxic, No Acute Distress Skin: Normal Color, Warm, Dry Head: Atraumatic, Normacephalic Eye(s): bilateral: Normal Inspection Nose: No Discharge, No Deformity Oral Mucosa: Moist Neck: Normal ROM, Supple, Other (scratch noted) Chest: Symmetrical Cardiovascular: Rhythm Regular, No Murmur Respiratory: Normal Breath Sounds, No Rales, No Rhonchi, No Wheezing Gastrointestinal/Abdominal: Soft, No Tenderness, No Guarding, No Rebound Extremity: Normal ROM, No Pedal Edema, No Calf Tenderness, No Deformity, No Swelling, Other (right arm 10 cm laceration, left arm multiple small lacerations ) Pulses: Left Radial: Normal, Right Radial: Normal Neurological/Psych: Oriented x3, Normal Speech, Normal Cognition, Normal Motor, Normal Sensation Gait: Steady ED Course And Treatment - Laboratory Results Result Diagrams: 11/19/17 23:04 11/19/17 23:04 Lab Interpretation: Abnormal (glucose 59. Repeated after patient ate a full pasta meal. glucose remains 67-70) ECG: Interpreted By Il ECG Rhythm: Sinus Rhythm ECG Interpretation: Normal O2 Sat by Pulse Oximetry: 98 (On RA) Pulse Ox Interpretation: Normal - CT Scan/US CT head Other Rad Studies (CT/US): Read By Radiologist, Radiology Report Reviewed CT/US Interpretation: Accession No. : [id number]. Patient Name / ID : MICHELLE PEARCE / [id number]. Exam Date : 11/19/2017 22:32:33 ( Approved ). Study Comment : Sex / Age : F / 27Y. Creator : John Gallego MD. Dictator : Fish Butcher : Shoe Stitcher Odd : John Gallego MD. Approver2 : Report Date : 11/19/2017 22:55:00. My Comment : . [employer]. [facility] Division of Radiology. [address] [place] [id number]. Tel. no. . . . Patient Name: PORTIA LOPEZ . Pt. Address: [address] [place] [address] Rec #: [id number]. [place] [address]: Magalys Machuca MD. Pt Order Location: [facility] : 1990 Female Age: 27 Order #: [id number]. Reason for exam: seizure. . . . . . CT Scan. . . HEAD W/O CONTRAST Exam Date: . . This imaging exam was performed at [facility]. EXAM: CT Head Without Intravenous Contrast. . CLINICAL HISTORY: 27 years old, female; Signs and symptoms; Other: Seizure. . TECHNIQUE: Axial computed tomography images of the head/brain without intravenous. contrast. All CT scans at this facility use one or more dose reduction. techniques, viz.: automated exposure control; ma/kV adjustment per patient size. (including targeted exams where dose is matched to indication; i.e. head); or. iterative reconstruction technique. . COMPARISON: CT - HEAD W/O (CODE STROKE) 2016-03-06 18:54. . FINDINGS: Brain: No intracranial hemorrhage. No mass. No definite edema. Ventricles: No hydrocephalus. Bones/joints: No acute fracture. Soft tissues : Unremarkable. Sinuses: No acute sinusitis. Mastoid air cells: No mastoid effusion. Orbits: Unremarkable as visualized. . IMPRESSION: 1. No definite acute intracranial abnormality. . Dictated By: John Gallego MD. Dictated Date/Time: 11/19/172254. Signed By: John Gallego MD. Date Signed : 11/19/172254. Transcribed By: [facility]. Transcribe Date/Time: 11/19/172254. ACYP02/DIONE Reevaluation Time: 23:41 Reassessment Condition: Improved - Physician Consult Information Time Consulting Physician Contacted: 23:50 Physician Contacted: Jigna Manzo Outcome Of Conversation: Patient to be kept for observation and seizure evaluation. Procedure: Wound Repair - Time Performed Time Performed: 23:38 - Time Out Time Out: Side verified - Performed by Performed by: Attending Physician - Indications Indication(s):: Laceration - Location Location:: Forearm (right distal volar aspect) Shape:: Linear Dimensions Length cm: 8 Depth:: Epidermis - Debris Debris:: None - Irrigated Irrigated with ml of normal saline: 200 - Wound repair method Karolyn:: Steri-strips (with Benzoin ) - Muscle repiar layer closed with Muscle repair layer closed with:: Dressing applied (with Ziggy wrap), Tetanus ordered - Patient tolerated procedure Patient Tolerated Procedure:: Well Medical Decision Making Medical Decision Making: Plan: * CT head * EKG * Labs * UA Disposition - Disposition Disposition: HOSPITALIZED Disposition Time: 00:08 Condition: IMPROVED Forms: [facility] (German) - POA Present On Arrival: None - Clinical Impression Clinical Impression: Seizure disorder, Forearm laceration - Scribe Statement The provider has reviewed the documentation as recorded by the Scribe Aldo Holm All medical record entries made by the Scribe were at my direction and personally dictated by me. I have reviewed the chart and agree that the record accurately reflects my personal performance of the history, physical exam, medical decision making, and the department course for this patient. I have also personally directed, reviewed, and agree with the discharge instructions and disposition.
--- NOTE | 2017-11-19 22:56 | CT ---
EXAM: CT Head Without Intravenous Contrast CLINICAL HISTORY: 27 years old, female; Signs and symptoms; Other: Seizure TECHNIQUE: Axial computed tomography images of the head/brain without intravenous contrast. All CT scans at this facility use one or more dose reduction techniques, viz.: automated exposure control; ma/kV adjustment per patient size (including targeted exams where dose is matched to indication; i.e. head); or iterative reconstruction technique. COMPARISON: CT - HEAD W/O (CODE STROKE) 2016-03-06 18:54 FINDINGS: Brain: No intracranial hemorrhage. No mass. No definite edema. Ventricles: No hydrocephalus. Bones/joints: No acute fracture. Soft tissues: Unremarkable. Sinuses: No acute sinusitis. Mastoid air cells: No mastoid effusion. Orbits: Unremarkable as visualized. IMPRESSION: 1. No definite acute intracranial abnormality.
[2017-11-19 23:13] LABS: BASO # 0.1 K/uL (0.0-0.2); BASO % 0.8 % (0.0-2.0); EOS # 0.4 K/uL (0.0-0.7); EOS % 4.6 % (0.0-4.0); HEMOGLOBIN 12.9 g/dL (11.0-16.0); LYMPH # 2.2 K/uL (1.0-4.3); LYMPH % 23.4 % (20.0-40.0); MEAN CELL VOLUME 82.2 fL (81.0-99.0); MEAN CORPUSCULAR HEMOGLOBIN 26.2 pg (27.0-31.0); MEAN CORPUSCULAR HGB CONC 31.9 g/dL (33.0-37.0); MEAN PLATELET VOLUME 8.2 fL (7.2-11.7); MONO # 0.8 K/uL (0.0-0.8); MONO % 8.5 % (0.0-10.0); NEUT # 5.9 K/uL (1.8-7.0); NEUT % 62.7 % (50.0-75.0); NRBC % 0.1 % (0.0-2.0); RBC 4.9 Mil/uL (3.80-5.20); RED CELL DISTRIBUTION WIDTH 13.9 % (11.5-14.5); WHITE BLOOD COUNT 9.4 K/uL (4.8-10.8)
[2017-11-19 23:21] LABS: ALB/GLOB RATIO 1.1 (1.0-2.1); ALBUMIN 3.9 g/dL (3.5-5.0); ALT/SGPT 23 U/L (9-52); AST/SGOT 23 U/L (14-36); BLOOD UREA NITROGEN 14 mg/dL (7-17); CALCIUM 8.1 mg/dl (8.6-10.4); GFR AFRICAN-AMERICAN > 60; GFR NON-AFRICAN AMERICAN > 60
[2017-11-20 00:14] LABS: SQUAMOUS EPITHIAL < 1 /hpf (0-5); URINE BILIRUBIN NEGATIVE (NEGATIVE); URINE BLOOD NEGATIVE (NEGATIVE); URINE CLARITY Clear (Clear); URINE COLOR Yellow (YELLOW); URINE GLUCOSE (UA) NORMAL (Normal); URINE LEUKOCYTE ESTERASE NEG Leu/uL (Negative); URINE NITRATE NEGATIVE (NEGATIVE); URINE PROTEIN NEGATIVE (NEGATIVE); URINE UROBILINOGEN NORMAL mg/dL (0.2-1.0)
[2017-11-20 00:18] LABS: HCG,QUALITATIVE URINE NEGATIVE (NEGATIVE)
[2017-11-20 07:19] LABS: MAGNESIUM 1.7 mg/dL (1.6-2.3)
--- NOTE | 2017-11-20 07:28 | CP.PCM.CON ---
History of Present Illness - History of Present Illness History of Present Illness: CONSULT DICTATATED REC SEIZURES - POOR COMPLIANCE Vs SLEEP DEPRIVATION CONT OBSERVE x12 HRS AND DO EEG IF STABLE D/C HOME AND FOLLOW UP WITH NEURO Past Patient History - Infectious Disease Hx of Infectious Diseases: None - Tetanus Immunizations Tetanus Immunization: Unknown - Past Medical History & Family History Past Medical History?: Yes - Past Social History Smoking Status: Current Some Days Smoker - CARDIAC Hx Hypercholesterolemia: Yes Hx Hypertension: Yes - PULMONARY Hx Asthma: Yes - NEUROLOGICAL Hx Migraine: Yes Hx Seizures: Yes Hx Transient Ischemic Attacks (TIA): Yes - HEENT Hx HEENT Problems: No Other/Comment: wears glasses - RENAL Hx Chronic Kidney Disease: No - ENDOCRINE/METABOLIC Hx Endocrine Disorders: No Other/Comment: pre diabetic - HEMATOLOGICAL/ONCOLOGICAL Hx Anemia: Yes Hx Sickle Cell Disease: Yes - INTEGUMENTARY Hx Dermatological Problems: No - MUSCULOSKELETAL/RHEUMATOLOGICAL Hx Arthritis: Yes - GASTROINTESTINAL Hx Gastrointestinal Disorders: No - GENITOURINARY/GYNECOLOGICAL Hx Genitourinary Disorders: No - PSYCHIATRIC Hx Anxiety: Yes Hx Depression: Yes Hx Schizophrenia: Yes Hx Substance Use: No - SURGICAL HISTORY Hx Surgeries: Yes (L ovarian cyst) - ANESTHESIA Hx Anesthesia: Yes Hx Anesthesia Reactions: Yes (states "couldn't breathe") Meds Allergies/Adverse Reactions: Allergies Allergy/AdvReac Type Severity Reaction Status Date / Time ketorolac tromethamine Allergy Mild SWELLING Verified 11/19/17 21:42 [From Toradol] naproxen [From Naprosyn] Allergy Mild URTICARIA Verified 11/19/17 21:42 polyethylene glycol 3350 Allergy Mild RASH Verified 11/19/17 21:42 [From Miralax] shellfish derived Allergy Mild ANAPHYLAXIS Verified 11/19/17 21:42 mushroom Allergy ANAPHYLAXIS Verified 11/19/17 21:42 ibuprofen [From Motrin] AdvReac Mild vomiting Verified 11/19/17 21:42 blood PORK AdvReac DIARRHEA Verified 11/19/17 21:42 nguyen Allergy Severe RASH Uncoded 11/19/17 21:42 - Medications Medications: Current Medications Apixaban (Eliquis) 5 mg PO BID [facility] Diphenhydramine HCl (Benadryl) 50 mg PO BID SIGIFREDO Gabapentin (Neurontin) 300 mg PO BID [facility] Home Med (Atorvastatin [Lipitor]) 10 mg PO HS SIGIFREDO Hydromorphone HCl (Dilaudid) 4 mg PO Q8 PRN PRN Reason: Pain, severe (8-10) Last Admin: 11/20/17 05:42 Dose: 4 mg Topiramate (Topamax) 100 mg PO BID SIGIFREDO Results - Vital Signs Recent Vital Signs: Last Vital Signs Temp 99.4 F 11/20/17 05:34 Pulse 81 11/20/17 05:34 Resp 20 11/20/17 05:34 BP 112/66 11/20/17 05:34 Pulse Ox 99 11/20/17 05:34 - Labs Result Diagrams: 11/19/17 23:04 11/19/17 23:04 Labs: Laboratory Results - last 24 hr 11/19/17 11/19/17 11/19/17 22:11 23:04 23:04 WBC 9.4 RBC 4.90 Hgb 12.9 Hct 40.3 MCV 82.2 MCH 26.2 L MCHC 31.9 L RDW 13.9 Plt Count 281 MPV 8.2 Neut % (Auto) 62.7 Lymph % (Auto) 23.4 [place] % (Auto) 8.5 Eos % (Auto) 4.6 H Baso % (Auto) 0.8 Neut # 5.9 Lymph # 2.2 Hudson # 0.8 Eos # 0.4 Baso # 0.1 Sodium 132 Potassium 4.1 Chloride 102 Carbon Dioxide 26 Anion Gap 9 L BUN 14 Creatinine 0.8 Est GFR ( Amer) > 60 Est GFR (Non-Af Amer) > 60 POC Glucose (mg/dL) Random Glucose 59 L Calcium 8.1 L Phosphorus Magnesium Total Bilirubin 0.5 AST 23 ALT 23 Alkaline Phosphatase 65 Total Protein 7.6 Albumin 3.9 Globulin 3.7 Albumin/Globulin Ratio 1.1 Urine Color Yellow Urine Clarity Clear Urine pH 7.0 Ur Specific [place] 1.014 Urine Protein Negative Urine Glucose (UA) Normal Urine Ketones Negative Urine Blood Negative Urine Nitrate Negative Urine Bilirubin Negative Urine Urobilinogen Normal Ur Leukocyte Esterase Neg Urine WBC (Auto) < 1 Urine RBC (Auto) < 1 Ur Squamous Epith Cells < 1 Urine HCG, Qual Negative 11/19/17 11/19/17 11/20/17 23:30 23:33 05:30 WBC RBC Hgb Hct MCV MCH MCHC RDW Plt Count MPV Neut % (Auto) Lymph % (Auto) Hudson % (Auto) Eos % (Auto) Baso % (Auto) Neut # Lymph # Hudson # Eos # Baso # Sodium Potassium Chloride Carbon Dioxide Anion Gap BUN Creatinine Est GFR ( Amer) Est GFR (Non-Af Amer) POC Glucose (mg/dL) 67 70 80 Random Glucose Calcium Phosphorus Magnesium Total Bilirubin AST ALT Alkaline Phosphatase Total Protein Albumin Globulin Albumin/Globulin Ratio Urine Color Urine Clarity Urine pH Ur Specific [place] Urine Protein Urine Glucose (UA) Urine Ketones Urine Blood Urine Nitrate Urine Bilirubin Urine Urobilinogen Ur Leukocyte Esterase Urine WBC (Auto) Urine RBC (Auto) Ur Squamous Epith Cells Urine HCG, Qual 11/20/17 06:54 WBC RBC Hgb Hct MCV MCH MCHC RDW Plt Count MPV Neut % (Auto) Lymph % (Auto) Hudson % (Auto) Eos % (Auto) Baso % (Auto) Neut # Lymph # Hudson # Eos # Baso # Sodium Potassium Chloride Carbon Dioxide Anion Gap BUN Creatinine Est GFR ( Amer) Est GFR (Non-Af Amer) POC Glucose (mg/dL) Random Glucose Calcium Phosphorus 3.8 Magnesium 1.7 Total Bilirubin AST ALT Alkaline Phosphatase Total Protein Albumin Globulin Albumin/Globulin Ratio Urine Color Urine Clarity Urine pH Ur Specific [place] Urine Protein Urine Glucose (UA) Urine Ketones Urine Blood Urine Nitrate Urine Bilirubin Urine Urobilinogen Ur Leukocyte Esterase Urine WBC (Auto) Urine RBC (Auto) Ur Squamous Epith Cells Urine HCG, Qual
[2017-11-20 07:36] LABS: FREE T4 0.58 ng/dL (0.78-2.19); PROLACTIN 11.4 ng/mL (3.0-18.9)
[2017-11-20 07:52] LABS: PROLACTIN 14.4 ng/mL (3.0-18.9)
--- NOTE | 2017-11-20 11:53 | CON ---
DATE: REASON FOR THE CONSULTATION: Seizures. CHIEF COMPLAINT: The patient came to the hospital day after her seizures and she sustained the injuries following seizures over her right forearm, toes as well as in the neck. Because of the recurrent seizures, I was called into evaluate her for further management. HISTORY OF PRESENT ILLNESS: Ms. Anita Martinez is a 27-year-old moderately obese right-handed female who is known to me only in the hospital followup evaluation, never compliant with medication, never been followed me as outpatient. Presenting with recurrent episode of seizures. Following seizures, she got hurt her body as well. No history of change in medication. No history of overusing or underusing her medication as per the patient. No triggers for her seizures as per the patient. PAST MEDICAL HISTORY: Protein C and S deficiency syndrome, history of stroke in 2005, history of hypertension, seizures. PERSONAL HISTORY: Denies smoking or alcohol use. ALLERGIES: KETOROLAC AND NAPROXEN. CURRENT MEDICATIONS: Dilantin, Neurontin, Benadryl, Lipitor, Eliquis and Topamax. REVIEW OF SYSTEMS: A 12-point system being reviewed. From neuro, recurrent seizures. PHYSICAL EXAMINATION VITAL SIGNS: Blood pressure 112/66, mean arterial pressure of 81, respiratory rate 16, temperature afebrile. NECK: Supple. No carotid bruit. HEART: Sounds regular. CHEST: Fair air entry. EXTREMITIES: No edema of legs. Post-traumatic scar over her right side of the neck and toes been seen. Right arm is dressed and Steri-strips being applied over her laceration. NEUROLOGIC: Mentation; she is awake, alert, oriented to person, place and time. Speech is clear. Naming, repetition, fluency, comprehension all within normal. patient seems to be lethargic and sleepy. Motor examination: Outstretched hand with eyes closed noted, no drift noted. Power is symmetric on either side. Deep tendon reflexes, biceps, brachialis, triceps 2+ on either side. Both knees are trace. Both ankles are absent. Plantars are downgoing. Sensory examination: Grossly intact to the pain. Coordination: Gdakil-tmaz-inpynp test is intact. WORKUP: CT of the head being reviewed, no acute pathology is noted. BLOOD WORKUP: WBC 9.4, hemoglobin 12.9, hematocrit 40.3, platelet 281. Sodium 132, potassium 4.1, chloride 102, bicarbonate 26, BUN 14, creatinine 0.8, GFR more than 60. CONCLUSION: Ms. Anita Martinez has been presenting with recurrent episode of seizures, which could be related to poor complaints or sleep deprived cause. However, from neurological point of view from her seizures, I advised her to continue the medication as she has been given. The patient should be followed by neurologist as outpatient and medication to be titrated to the optimum level. At this point, I do not want to adjust her medication. She will continue the medication as she has been taking. discussed and proper medication for her laceration of her wound. Continue Eliquis for her stroke prevention for hypercoagulable stage. If the patient is stable for next 12-hour period, the patient can be discharged and should have followup visit as an outpatient. Kel Puckett MD
--- NOTE | 2017-11-20 12:04 | MRI ---
PROCEDURE: MRI BRAIN WITHOUT CONTRAST HISTORY: atten at mesial temp lobe vol analysis hippocampu COMPARISON: None. TECHNIQUE: Multiplanar, multisequence MR images of the brain were obtained without intravenous contrast enhancement. FINDINGS: HEMORRHAGE: None DWI: No evidence of an acute or early subacute infarction. BRAIN PARENCHYMA: Intrinsic signal throughout the coello and white matter structures above below the tentorium includes appears within normal limits including the brainstem. High-resolution coronal T2 imaging through the temporal lobes reveal symmetric bilateral hippocampal without focal atrophy appreciated or other MR side of mesial temporal sclerosis in either temporal lobe. There is no mass effect, parenchymal edema or loss of the corticomedullary differentiation. Midline brain anatomy appears within normal limits including the corpus callosum, brainstem and craniocervical junction. There is no suspicious extra-axial fluid collection identified. VENTRICLES: Unremarkable. No hydrocephalus. CRANIUM: Unremarkable. ORBITS: Grossly unremarkable. PARANASAL SINUSES/MASTOIDS: Clear VASCULAR SYSTEM: Skull base flow voids intact. OTHER FINDINGS: None. IMPRESSION: Unremarkable non contrast enhanced MRI of the brain.
--- NOTE | 2017-11-20 13:28 | CP.PCM.HP ---
History of Present Illness - History of Present Illness History of Present Illness: COMPREHENSIVE HISTORY & PHYSICAL EXAM HPI 27 year old female with PMHx of epilepsy since age 7, CVA, heart attack, sickle cell presents to the ED for evaluation after having a seizure. Patient reports she had a seizure yesterday and she was holding a glass while it occurred and she cut both her arms and neck. Patient she has been having seizures on and off for the past 2 months, most recent one 2 days ago and the one yesterday. Patient states she is taking Topamax, Eliquis, and Dilaudid PAST HIST. PERSONAL HIST: Smoking. N Alcohol. N Allergy N Travel_- . FAMILY HIST : ROS : Constitutional: Negative for weight change, chills, night sweats, fatigue and usage of assist device. Eyes: Negative for redness, swelling, itching, discharge, vision changes, blurry vision, double vision, glaucoma, cataracts, Ears: Negative for hearing loss, ringing, , tinnitus, vertigo Nose: Negative for rhinorrhea, stuffiness, sniffing, itching, postnasal drip, discoloration, nasal congestion and epistaxis. Throat: Negative for throat clearing, sore throat, hoarseness, difficulty swallowing and difficulty speaking. Respiratory: Negative for cough, , sputum production, chest tightness, wheezing, pleuritic chest pain ,daytime somnolence, chronic cough, hemoptysis, snoring at night, Cardiovascular: Negative for chest pain, palpitations, orthopnea, PND, Edema of legs, leg cramps, angina, claudication, , irregular heartbeat, Neurology: Negative for irritability, muscle weakness, numbness and tingling, tremors, migraines, slurred speech, syncope, memory loss, mood changes, recurrent headaches Gastrointestinal: Negative for difficulty swallowing, diarrhea, constipation, black stools, rectal bleeding, nausea, flatulence, reflux, poor appetite, changes in bowel habits, abdominal pain Genitourinary: Negative for frequent urination, hematuria, discharge, incontinence, urinary retention, frequent UTI, Psychiatric: Negative for depression, anxiety/panic, suicidal tendencies, Musculoskeletal: Negative for swollen joints, back pain, , neck pain, morning stiffness of joints, . Skin: Negative for rash, ulcers, itching, dry skin and pigmented lesions. P/E: Constitutional: Appears stated age and in no apparent distress. Head: Normocephalic. Ears: External ear canals patent without inflammation. Tympanic membranes intact with normal light reflex and landmark. Eyes: Pupils are central, bilaterally equal, symmetrical and reacts to light with normal movements and no icterus or pallor. Nose: External nares are patent. Mucosa is pink Mouth-Throat: Good general appearance and condition. No post-pharyngeal/oropharyngeal erythema and tonsillar hypertrophy. Good dental hygiene. Neck-Lymphatic: Neck is supple with normal ROM, no thyromegaly, lymph nodes or masses. JVD is normal with no carotid bruit. Lungs: Clear to percussion and auscultation with bilateral normal air entry. Cardiovascular: S1 and S2 are normal with no murmurs, gallops and rub. GI Exam: No hepatomegaly. Abdomen is soft and non-tender. No Organomegaly , masses or hernias are evident and bowel sounds are normal and active. Neurology: Higher function and all cranial nerves intact, with no gross motor or sensory deficit. Superficial and deep reflexes are normal with downwards planters. No cerebellar deficit with normal gait. Musculoskeletal: No tender spots with normal curvature of the spine with no swelling or restricted ROM of the small and large joints. Extremities: Homans sign absent. Intact pulses with no pitting edema, calf tenderness or skin color changes. LEFT ARM SUP. LACERATION Skin: No rash, eruptions or abnormal skin pigmentation LAB/RADIOLOGY: ASSESMENT : ? RECURRENT SEIZURES , NON COMPLIANCE SICLE CELL ANEMIA PLAN: REC PER NEURO Present on Admission - Present on Admission Any Indicators Present on Admission: No Past Patient History - Infectious Disease Hx of Infectious Diseases: None - Tetanus Immunizations Tetanus Immunization: Unknown - Past Medical History & Family History Past Medical History?: Yes - Past Social History Smoking Status: Current Some Days Smoker - CARDIAC Hx Hypercholesterolemia: Yes Hx Hypertension: Yes - PULMONARY Hx Asthma: Yes - NEUROLOGICAL Hx Migraine: Yes Hx Seizures: Yes Hx Transient Ischemic Attacks (TIA): Yes - HEENT Hx HEENT Problems: No Other/Comment: wears glasses - RENAL Hx Chronic Kidney Disease: No - ENDOCRINE/METABOLIC Hx Endocrine Disorders: No Other/Comment: pre diabetic - HEMATOLOGICAL/ONCOLOGICAL Hx Anemia: Yes Hx Sickle Cell Disease: Yes - INTEGUMENTARY Hx Dermatological Problems: No - MUSCULOSKELETAL/RHEUMATOLOGICAL Hx Arthritis: Yes - GASTROINTESTINAL Hx Gastrointestinal Disorders: No - GENITOURINARY/GYNECOLOGICAL Hx Genitourinary Disorders: No - PSYCHIATRIC Hx Anxiety: Yes Hx Depression: Yes Hx Schizophrenia: Yes Hx Substance Use: No - SURGICAL HISTORY Hx Surgeries: Yes (L ovarian cyst) - ANESTHESIA Hx Anesthesia: Yes Hx Anesthesia Reactions: Yes (states "couldn't breathe") Meds Allergies/Adverse Reactions: Allergies Allergy/AdvReac Type Severity Reaction Status Date / Time ketorolac tromethamine Allergy Mild SWELLING Verified 11/19/17 21:42 [From Toradol] naproxen [From Naprosyn] Allergy Mild URTICARIA Verified 11/19/17 21:42 polyethylene glycol 3350 Allergy Mild RASH Verified 11/19/17 21:42 [From Miralax] shellfish derived Allergy Mild ANAPHYLAXIS Verified 11/19/17 21:42 mushroom Allergy ANAPHYLAXIS Verified 11/19/17 21:42 ibuprofen [From Motrin] AdvReac Mild vomiting Verified 11/19/17 21:42 blood PORK AdvReac DIARRHEA Verified 11/19/17 21:42 nguyen Allergy Severe RASH Uncoded 11/19/17 21:42 Results - Vital Signs Recent Vital Signs: Last Vital Signs Temp 98.8 F 11/20/17 10:40 Pulse 94 H 11/20/17 10:40 Resp 17 11/20/17 10:40 BP 112/73 11/20/17 10:40 Pulse Ox 100 11/20/17 10:40 - Labs Result Diagrams: 11/19/17 23:04 11/19/17 23:04 Labs: Laboratory Results - last 24 hr 11/19/17 11/19/17 11/19/17 22:11 23:04 23:04 WBC 9.4 RBC 4.90 Hgb 12.9 Hct 40.3 MCV 82.2 MCH 26.2 L MCHC 31.9 L RDW 13.9 Plt Count 281 MPV 8.2 Neut % (Auto) 62.7 Lymph % (Auto) 23.4 [place] % (Auto) 8.5 Eos % (Auto) 4.6 H Baso % (Auto) 0.8 Neut # 5.9 Lymph # 2.2 [place] # 0.8 Eos # 0.4 Baso # 0.1 ESR Sodium 132 Potassium 4.1 Chloride 102 Carbon Dioxide 26 Anion Gap 9 L BUN 14 Creatinine 0.8 Est GFR ( Amer) > 60 Est GFR (Non-Af Amer) > 60 POC Glucose (mg/dL) Random Glucose 59 L Calcium 8.1 L Phosphorus Magnesium Total Bilirubin 0.5 AST 23 ALT 23 Alkaline Phosphatase 65 Total Protein 7.6 Albumin 3.9 Globulin 3.7 Albumin/Globulin Ratio 1.1 Free T4 TSH 3rd Generation Prolactin 14.4 Urine Color Yellow Urine Clarity Clear Urine pH 7.0 Ur Specific [place] 1.014 Urine Protein Negative Urine Glucose (UA) Normal Urine Ketones Negative Urine Blood Negative Urine Nitrate Negative Urine Bilirubin Negative Urine Urobilinogen Normal Ur Leukocyte Esterase Neg Urine WBC (Auto) < 1 Urine RBC (Auto) < 1 Ur Squamous Epith Cells < 1 Urine HCG, Qual Negative 11/19/17 11/19/17 11/20/17 23:30 23:33 05:30 WBC RBC Hgb Hct MCV MCH MCHC RDW Plt Count MPV Neut % (Auto) Lymph % (Auto) [place] % (Auto) Eos % (Auto) Baso % (Auto) Neut # Lymph # [place] # Eos # Baso # ESR Sodium Potassium Chloride Carbon Dioxide Anion Gap BUN Creatinine Est GFR ( Amer) Est GFR (Non-Af Amer) POC Glucose (mg/dL) 67 70 80 Random Glucose Calcium Phosphorus Magnesium Total Bilirubin AST ALT Alkaline Phosphatase Total Protein Albumin Globulin Albumin/Globulin Ratio Free T4 TSH 3rd Generation Prolactin Urine Color Urine Clarity Urine pH Ur Specific [place] Urine Protein Urine Glucose (UA) Urine Ketones Urine Blood Urine Nitrate Urine Bilirubin Urine Urobilinogen Ur Leukocyte Esterase Urine WBC (Auto) Urine RBC (Auto) Ur Squamous Epith Cells Urine HCG, Qual 11/20/17 11/20/17 11/20/17 06:54 06:54 06:54 WBC RBC Hgb Hct MCV MCH MCHC RDW Plt Count MPV Neut % (Auto) Lymph % (Auto) [place] % (Auto) Eos % (Auto) Baso % (Auto) Neut # Lymph # [place] # Eos # Baso # ESR 26 H Sodium Potassium Chloride Carbon Dioxide Anion Gap BUN Creatinine Est GFR ( Amer) Est GFR (Non-Af Amer) POC Glucose (mg/dL) Random Glucose Calcium Phosphorus 3.8 Magnesium 1.7 Total Bilirubin AST ALT Alkaline Phosphatase Total Protein Albumin Globulin Albumin/Globulin Ratio Free T4 0.58 L TSH 3rd Generation 1.03 Prolactin 11.4 Urine Color Urine Clarity Urine pH Ur Specific [place] Urine Protein Urine Glucose (UA) Urine Ketones Urine Blood Urine Nitrate Urine Bilirubin Urine Urobilinogen Ur Leukocyte Esterase Urine WBC (Auto) Urine RBC (Auto) Ur Squamous Epith Cells Urine HCG, Qual
[2017-11-20 19:59] VITALS: RESP 20
[2017-11-21] MEDS ORDERED: Naproxen 550 mg Tab PO PRN (07:50)
[2017-11-21 08:33] VITALS: TEMP 97.9
--- NOTE | 2017-11-21 12:37 | PN ---
DATE: 11/21/2017 NEUROLOGICAL PROBLEM: Recurrent seizures. PHYSICAL EXAMINATION: VITAL SIGNS: Blood pressure 98/61, mean arterial pressure of 73, respiratory rate 16, and temperature afebrile. NEUROLOGIC: The patient is comfortable, lying down, easily arousable on calling her first name. Her orientation is normal. Speech is normal. The patient seems to be lethargic and sleepy. Examination is unchanged compared with my previous examination. LABORATORY DATA: Her workup including EEG had been reviewed consistent with N2 sleep throughout. No electrographic seizures noted or focal slowing. MRI of the brain also reviewed. No acute pathology is noted. During the EEG, the patient does show S-T depression and sinus tachycardia. Being seen that, I would like her to have stat electrocardiogram now to assess her electrical activities of the heart. Considering the new changes, I would like Dr. Manzo's input before her discharge. The patient is neurologically cleared, she could go home and she would have followup visit either with me or any other neurologist for her seizure control in near future. Continue her present antiplatelet drug for seizure control and Eliquis for her hypercoagulable state to prevent stroke. Kel Puckett MD
--- NOTE | 2017-11-21 14:25 | CP.PCM.DIS ---
Provider - Provider Date of Admission: 11/20/17 00:29 Attending physician: Jigna Manzo MD Time Spent in preparation of Discharge (in minutes): 30 Hospital Course - Lab Results Lab Results: Most Recent Lab Values WBC 9.4 K/uL (4.8-10.8) 11/19/17 23:04 RBC 4.90 Mil/uL (3.80-5.20) 11/19/17 23:04 Hgb 12.9 g/dL (11.0-16.0) 11/19/17 23:04 Hct 40.3 % (34.0-47.0) 11/19/17 23:04 MCV 82.2 fL (81.0-99.0) 11/19/17 23:04 MCH 26.2 pg (27.0-31.0) L 11/19/17 23:04 MCHC 31.9 g/dL (33.0-37.0) L 11/19/17 23:04 RDW 13.9 % (11.5-14.5) 11/19/17 23:04 Plt Count 281 K/uL (130-400) 11/19/17 23:04 MPV 8.2 fL (7.2-11.7) 11/19/17 23:04 Neut % (Auto) 62.7 % (50.0-75.0) 11/19/17 23:04 Lymph % (Auto) 23.4 % (20.0-40.0) 11/19/17 23:04 [place] % (Auto) 8.5 % (0.0-10.0) 11/19/17 23:04 Eos % (Auto) 4.6 % (0.0-4.0) H 11/19/17 23:04 Baso % (Auto) 0.8 % (0.0-2.0) 11/19/17 23:04 Neut # 5.9 K/uL (1.8-7.0) 11/19/17 23:04 Lymph # 2.2 K/uL (1.0-4.3) 11/19/17 23:04 [place] # 0.8 K/uL (0.0-0.8) 11/19/17 23:04 Eos # 0.4 K/uL (0.0-0.7) 11/19/17 23:04 Baso # 0.1 K/uL (0.0-0.2) 11/19/17 23:04 ESR 26 mm/hr (0-20) H 11/20/17 06:54 Sodium 132 mmol/L (132-148) 11/19/17 23:04 Potassium 4.1 mmol/L (3.6-5.2) 11/19/17 23:04 Chloride 102 mmol/L (98-107) 11/19/17 23:04 Carbon Dioxide 26 mmol/L (22-30) 11/19/17 23:04 Anion Gap 9 (10-20) L 11/19/17 23:04 BUN 14 mg/dL (7-17) 11/19/17 23:04 Creatinine 0.8 mg/dL (0.7-1.2) 11/19/17 23:04 Est GFR ( Amer) > 60 11/19/17 23:04 Est GFR (Non-Af Amer) > 60 11/19/17 23:04 POC Glucose (mg/dL) 80 mg/dL (65-110) 11/20/17 05:30 Random Glucose 59 mg/dL (65-105) L 11/19/17 23:04 Calcium 8.1 mg/dl (8.6-10.4) L 11/19/17 23:04 Ionized Calcium 5.1 mg/dL (4.80-5.60) 11/20/17 09:15 Phosphorus 3.8 mg/dL (2.5-4.5) 11/20/17 06:54 Magnesium 1.7 mg/dL (1.6-2.3) 11/20/17 06:54 Total Bilirubin 0.5 mg/dL (0.2-1.3) 11/19/17 23:04 AST 23 U/L (14-36) 11/19/17 23:04 ALT 23 U/L (9-52) 11/19/17 23:04 Alkaline Phosphatase 65 U/L (38-126) 11/19/17 23:04 Total Protein 7.6 g/dL (6.3-8.3) 11/19/17 23:04 Albumin 3.9 g/dL (3.5-5.0) 11/19/17 23:04 Globulin 3.7 gm/dL (2.2-3.9) 11/19/17 23:04 Albumin/Globulin Ratio 1.1 (1.0-2.1) 11/19/17 23:04 Free T4 0.58 ng/dL (0.78-2.19) L 11/20/17 06:54 TSH 3rd Generation 1.03 mIU/L (0.46-4.68) 11/20/17 06:54 Prolactin 11.4 ng/mL (3.0-18.9) 11/20/17 06:54 Urine Color Yellow (YELLOW) 11/19/17 22:11 Urine Clarity Clear (Clear) 11/19/17 22: Urine pH 7.0 (5.0-8.0) 11/19/17 22:11 Ur Specific [place] 1.014 (1.003-1.030) 11/19/17 22:11 Urine Protein Negative mg/dL (NEGATIVE) 11/19/17 22:11 Urine Glucose (UA) Normal mg/dL (Normal) 11/19/17 22:11 Urine Ketones Negative mg/dL (NEGATIVE) 11/19/17 22:11 Urine Blood Negative (NEGATIVE) 11/19/17 22:11 Urine Nitrate Negative (NEGATIVE) 11/19/17 22: Urine Bilirubin Negative (NEGATIVE) 11/19/17 22: Urine Urobilinogen Normal mg/dL (0.2-1.0) 11/19/17 22:11 Ur Leukocyte Esterase Neg [place]/uL (Negative) 11/19/17 22:11 Urine WBC (Auto) < 1 /hpf (0-5) 11/19/17 22:11 Urine RBC (Auto) < 1 /hpf (0-3) 11/19/17 22:11 Ur Squamous Epith Cells < 1 /hpf (0-5) 11/19/17 22:11 Urine HCG, Qual Negative (NEGATIVE) 11/19/17 22: - Hospital Course Hospital Course: 27 year old female with PMHx of epilepsy since age 7, CVA, heart attack, sickle cell presents to the ED for evaluation after having a seizure. Patient reports she had a seizure yesterday and she was holding a glass while it occurred and she cut both her arms and neck. Patient she has been having seizures on and off for the past 2 months, most recent one 2 days ago and the one yesterday. Patient states she is taking Topamax, Eliquis, for protein s/and c def and Dilaudid PT WAS OBSERVED FOR 48 HRS NO SZ NEURO CLEARED PT FOR D/C D/C HOME ON HOME MEDS Discharge Plan - Follow Up Plan Condition: IMPROVED Disposition: HOME/ ROUTINE
--- NOTE | 2017-11-21 15:17 | CP.PCM.PN ---
Subjective - Date & Time of Evaluation Date of Evaluation: 11/21/17 Time of Evaluation: 15:17 Objective - Vital Signs/Intake and Output Vital Signs (last 24 hours): Temp Pulse Resp BP Pulse Ox 97.9 F 82 20 102/70 98 11/21/17 07:40 11/21/17 07:40 11/21/17 07:40 11/21/17 07:40 11/21/17 07:40 - Medications Medications: Current Medications Acetaminophen (Tylenol 325mg Tab) 650 mg PO Q6 PRN PRN Reason: Pain, moderate (4-7) Apixaban (Eliquis) 5 mg PO BID [facility] Last Admin: 11/21/17 11:00 Dose: 5 mg Diphenhydramine HCl (Benadryl) 50 mg PO BID [facility] Last Admin: 11/21/17 11:01 Dose: Not Given Gabapentin (Neurontin) 300 mg PO BID [facility] Last Admin: 11/21/17 11:00 Dose: 300 mg Rosuvastatin Calcium (Crestor) 5 mg PO HS [facility] Last Admin: 11/20/17 22:01 Dose: 5 mg Topiramate (Topamax) 100 mg PO BID [facility] Last Admin: 11/21/17 11:01 Dose: 100 mg - Labs Labs: 11/19/17 23:04 11/19/17 23:04 Assessment and Plan - Assessment and Plan (Free Text) Assessment: FOLLOW UP WITH DR GUDINO IN A WEEK AT HIS OFFICE ----CALL HIS OFFICE FOR APPOINTMENT FOLLOW UP WITH DR VILLAREAL AT HIS OFFICE ---CALL HIS OFFICE FOR APPOINTMENT CONTINUE ALL YOUR HOME MEDICATION ORDER ACTIVITY TOLERATED KEEP THE WOUND CLEAN; CALL DR GUDINO OR GO TO THE EMERGENCY ROOM IF SYMPTOMS RETURN OR WORSENING
[2017-11-21 15:51] VITALS: BP 115/74; PULSE 87; O2SAT 97
== END 2017-11-21 16:44 | disposition home or self-care (01) | DRG 889 ==
LOC: C.ER 21:35 → C.9E 11-20 00:29 → C.5S 11-20 17:03
PROVIDERS: ADMIT Internal Medicine Cardiovascular Disease; ATTEND Internal Medicine Cardiovascular Disease
DX: G40.909 Epilepsy, unspecified, not intractable, without status epilepticus (principal); F20.9 Schizophrenia, unspecified; D57.1 Sickle-cell disease without crisis; E78.00 Pure hypercholesterolemia, unspecified; S51.811A Laceration without foreign body of right forearm, initial encounter; I25.10 Atherosclerotic heart disease of native coronary artery without angina pectoris; Z86.73 Personal history of transient ischemic attack (TIA), and cerebral infarction without residual deficits; F32.9 Major depressive disorder, single episode, unspecified; I10 Essential (primary) hypertension; G43.909 Migraine, unspecified, not intractable, without status migrainosus; F41.9 Anxiety disorder, unspecified; F17.210 Nicotine dependence, cigarettes, uncomplicated; W25.XXXA Contact with sharp glass, initial encounter; J45.909 Unspecified asthma, uncomplicated; Z91.19 Patient's noncompliance with other medical treatment and regimen; Z72.820 Sleep deprivation; R73.03 Prediabetes

== ENCOUNTER 2017-12-26 00:13 | Emergency (ER) | payer MEDICAID ==
[2017-12-26 00:13] VITALS: BMI 26.6
[2017-12-26 00:38] VITALS: RESP 20; O2SAT 98
[2017-12-26 01:37] LABS: BASO # 0.1 K/uL (0.0-0.2); BASO % 1.2 % (0.0-2.0); EOS # 0.6 K/uL (0.0-0.7); EOS % 5.4 % (0.0-4.0); HEMOGLOBIN 12.9 g/dL (11.0-16.0); LYMPH # 2.6 K/uL (1.0-4.3); LYMPH % 22.4 % (20.0-40.0); MEAN CELL VOLUME 80.9 fL (81.0-99.0); MEAN CORPUSCULAR HEMOGLOBIN 27.3 pg (27.0-31.0); MEAN CORPUSCULAR HGB CONC 33.7 g/dL (33.0-37.0); MEAN PLATELET VOLUME 8.4 fL (7.2-11.7); MONO # 1.1 K/uL (0.0-0.8); RBC 4.73 Mil/uL (3.80-5.20); RED CELL DISTRIBUTION WIDTH 13.5 % (11.5-14.5); WHITE BLOOD COUNT 11.4 K/uL (4.8-10.8)
[2017-12-26 01:49] LABS: ALB/GLOB RATIO 1.1 (1.0-2.1); ALT/SGPT 52 U/L (9-52); AST/SGOT 41 U/L (14-36); BLOOD UREA NITROGEN 16 mg/dL (7-17); CALCIUM 8.8 mg/dl (8.6-10.4); GFR AFRICAN-AMERICAN > 60; GFR NON-AFRICAN AMERICAN > 60
[2017-12-26] MEDS ORDERED: Potassium Chloride 20 mEq ER Tab PO STA (02:03)
[2017-12-26] MEDS ORDERED: Potassium Chloride 20 mEq ER Tab PO ONE (02:21)
--- NOTE | 2017-12-26 03:18 | C.PDOC ---
History Of Present Illness 27 year old female with PMHx of CAD, CVA, HTN, seizures, sickle cell presents to the ED c/o cough, congestion, productive cough, body aches for the past 2 days. Patient reports she is an occasional smoker. She has not taken any medication for her symptoms. Patient denies fever, chills, nausea, vomit, diarrhea, chest pain , sob, abdominal pain, recent travel, sick contacts. Time Seen by Provider: 12/26/17 00:56 Chief Complaint (Nursing): Flu-like Symptoms History Per: Patient History/Exam Limitations: no limitations Onset/Duration Of Symptoms: Days Current Symptoms Are (Timing): Still Present Location Of Pain: Throat, Diffuse Myalgias Sick Contacts (Context): None Associated Symptoms: Fever, Cough, Sputum, Nasal Congestion Recent travel outside of the [place]: No Additional History Per: Patient Past Medical History Reviewed: Historical Data, Nursing Documentation, Vital Signs Vital Signs: Last Vital Signs Temp 97.3 F L 12/26/17 04:32 Pulse 81 12/26/17 04:32 Resp 20 12/26/17 04:32 BP 129/71 12/26/17 04:32 Pulse Ox 98 12/26/17 04:32 - Medical History PMH: Anemia, Anxiety, Arthritis, Asthma, Back Problems, CAD, CVA (x 3, Protein C /S deficiency), Depression, HTN, Hypercholesterolemia, Hyperlipidemia, Migraine , Schizophrenia, Seizures, Sickle Cell Disease, TIA, Chronic Pain Denies: Chronic Kidney Disease Surgical History: No Surg Hx - [facility] Procedures INJECT/INFUSE NEC (02/07/15) MONITORING OF POC, CARDIAC RATE, 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 Negative for: Fever, Chills ENT: Positive for: Nose Congestion. Negative for: Nose Discharge Cardiovascular: Negative for: Chest Pain Respiratory: Positive for: Cough, Sputum. Negative for: Shortness of Breath Gastrointestinal: Negative for: Nausea, Vomiting, Abdominal Pain Genitourinary: Negative for: Dysuria Skin: Negative for: Rash Neurological: Negative for: Weakness, Numbness, Headache Physical Exam - Physical Exam Appears: Non-toxic, No Acute Distress Skin: Normal Color, Warm, Dry Head: Atraumatic, Normacephalic Eye(s): bilateral: Normal Inspection Ear(s): Bilateral: Normal Nose: No Discharge, No Deformity Oral Mucosa: Moist Throat: Normal, No Erythema, No Exudate Neck: Normal ROM, Supple Chest: Symmetrical Cardiovascular: Rhythm Regular, No Murmur Respiratory: Normal Breath Sounds, No Rales, No Rhonchi, No Wheezing Gastrointestinal/Abdominal: Soft, No Tenderness, No Guarding, No Rebound Extremity: Normal ROM, No Tenderness, No Deformity, No Swelling Neurological/Psych: Oriented x3, Normal Speech, Normal Cognition Gait: Steady ED Course And Treatment - Laboratory Results Result Diagrams: 12/26/17 01:34 12/26/17 01:34 O2 Sat by Pulse Oximetry: 98 (On RA) Pulse Ox Interpretation: Normal Progress Note: On re-evaluation, patient is resting comfortably, and is in no acute distress. Lungs CTA. Abdominal soft non tender. Remains afebrile. Patient was instructed to follow up with PMD in 1-2 days for further evaluation. Case discussed with Dr Kohler, agreed upon plan and discharge. Disposition - Disposition Disposition: HOME/ ROUTINE Disposition Time: 03:52 Condition: STABLE Additional Instructions: Follow up with primary medical doctor in 1-3 days without fail for further evaluation. Take medications as prescribed. Return to the emergency department at any time if symptoms persist or worsen. Prescriptions: Guaifen/Dextromethorphan/PE [Mucinex Fast-Max Congest-Cough] 1 each PO Q6 #20 tablet Instructions: Viral Upper Respiratory Infection, Adult (DC) Forms: [email or web address] (Syriac) - Clinical Impression Clinical Impression: URI (upper respiratory infection) - PA / INTERRELATED SPECIAL EDUCATION TEACHER / Resident Statement MD/DO has reviewed & agrees with the documentation as recorded. - Scribe Statement The provider has reviewed the documentation as recorded by the Scribe Aldo Holm All medical record entries made by the Scribe were at my direction and personally dictated by me. I have reviewed the chart and agree that the record accurately reflects my personal performance of the history, physical exam, medical decision making, and the department course for this patient. I have also personally directed, reviewed, and agree with the discharge instructions and disposition.
[2017-12-26 04:33] VITALS: BP 129/71; PULSE 81; TEMP 97.3
--- NOTE | 2017-12-26 08:32 | RAD ---
HISTORY: SOB COMPARISON: Chest x-ray performed 08/16/17 TECHNIQUE: Chest PA and lateral FINDINGS: LUNGS: Azygos lobe, anatomic variant. No focal consolidation. Please note that chest x-ray has limited sensitivity for the detection of pulmonary masses. PLEURA: No significant pleural effusion identified. No definite pneumothorax . CARDIOVASCULAR: The cardiomediastinal silhouette appears within normal limits of size. OSSEOUS STRUCTURES: No acute osseous abnormality identified. VISUALIZED UPPER ABDOMEN: Unremarkable. OTHER FINDINGS: None. IMPRESSION: No focal consolidation identified.
== END 2017-12-26 04:33 | disposition home or self-care (01) ==
LOC: C.ER 00:13
DX: J06.9 Acute upper respiratory infection, unspecified (principal); F17.210 Nicotine dependence, cigarettes, uncomplicated

== ENCOUNTER 2018-07-17 21:56 | Emergency (ER) | payer MEDICAID ==
[2018-07-17 21:57] VITALS: BMI 25.8
[2018-07-17 22:20] VITALS: O2SAT 100
--- NOTE | 2018-07-17 22:50 | C.PDOC ---
History Of Present Illness 28 yr old female w/ hx of cocaine + opiate abuse p/w withdrawal symptoms and detox. Pt is requesting detox and denies any other complaints. No CP, no SOB, No abd pain, No falls, No trauma. No fever, chills night sweats or any other complaints Time Seen by Provider: 07/17/18 22:50 Chief Complaint (Nursing): Substance Abuse Past Medical History Vital Signs: Last Vital Signs Temp 98.3 F 07/17/18 22:15 Pulse 85 07/17/18 22:15 Resp 20 07/17/18 22:15 BP 127/84 07/17/18 22:15 Pulse Ox 100 07/17/18 23:13 - Medical History PMH: Anemia, Anxiety, Arthritis, Asthma, Back Problems, CAD, CVA (x 3, Protein C /S deficiency), Depression, Deep Vein Thrombosis, HTN, Hypercholesterolemia, Hyperlipidemia, Migraine, Schizophrenia, Seizures, Sickle Cell Disease, TIA, Chronic Pain Denies: Chronic Kidney Disease - [facility] Procedures INJECT/INFUSE NEC (02/07/15) MONITORING OF POC, CARDIAC RATE, RESTAURANT MGR APPROACH (11/22/15) TETANUS TOXOID ADMINIST (10/26/13) Family History: States: Unknown Family Hx, [place] - Social History Hx Tobacco Use: Yes (light smoker) Hx Alcohol Use: Yes Hx Substance Use: Yes (heroin/coccaine) - Immunization History Hx Tetanus Toxoid Vaccination: Yes Hx Influenza Vaccination: Yes Hx Pneumococcal Vaccination: Yes Review Of Systems Constitutional: Negative for: Fever Eyes: Negative for: Pain ENT: Negative for: Ear Pain Cardiovascular: Negative for: Chest Pain Respiratory: Negative for: Cough Gastrointestinal: Negative for: Nausea, Vomiting Genitourinary: Negative for: Dysuria Musculoskeletal: Negative for: Neck Pain Skin: Negative for: Rash Neurological: Negative for: Weakness Physical Exam - Physical Exam Appears: Well, No Acute Distress Skin: Normal Color, Warm, Dry Eye(s): bilateral: Normal Inspection, PERRL, EOMI Nose: Normal Throat: Normal Neck: Normal Cardiovascular: Rhythm Regular Respiratory: Normal Breath Sounds Gastrointestinal/Abdominal: Normal Exam Back: Normal Inspection Extremity: Normal ROM Neurological/Psych: Oriented x3, Normal Speech ED Course And Treatment O2 Sat by Pulse Oximetry: 100 Medical Decision Making Medical Decision Makin yr old F presents requesting detox. Normal exam, well appearing, in no pain. CRISIS to see pt- Per crisis team- no beds. to see pt. Clear for d/c home Disposition - Disposition Disposition Time: 23:39 Condition: GOOD Forms: [facility] (Guinean) - Clinical Impression Clinical Impression: Substance abuse
[2018-07-18] VITALS: BP 122/81; PULSE 81; RESP 16; TEMP 98.4
== END 2018-07-17 23:59 | disposition home or self-care (01) ==
LOC: C.ER 21:56
DX: F19.10 Other psychoactive substance abuse, uncomplicated (principal); E78.00 Pure hypercholesterolemia, unspecified; F20.9 Schizophrenia, unspecified; I10 Essential (primary) hypertension; I25.10 Atherosclerotic heart disease of native coronary artery without angina pectoris; F17.210 Nicotine dependence, cigarettes, uncomplicated; Z86.73 Personal history of transient ischemic attack (TIA), and cerebral infarction without residual deficits

== ENCOUNTER 2018-09-07 17:21 | Emergency (ER) | payer MEDICAID ==
[2018-09-07] MEDS ORDERED: Naloxone 0.4 mg/ml Inj (Adult) ONE (17:28)
[2018-09-07 17:32] VITALS: BMI 27.4
[2018-09-07] MEDS ORDERED: Naloxone 0.4 mg/ml Inj (Adult) IVP ONE (17:50)
[2018-09-07 18:19] LABS: BASO # 0.1 K/uL (0.0-0.2); BASO % 0.8 % (0.0-2.0); EOS # 0.3 K/uL (0.0-0.7); EOS % 3.2 % (0.0-4.0); HEMOGLOBIN 13.3 g/dL (11.0-16.0); LYMPH # 1.8 K/uL (1.0-4.3); LYMPH % 20.7 % (20.0-40.0); MEAN CELL VOLUME 79.9 fL (81.0-99.0); MEAN CORPUSCULAR HEMOGLOBIN 26.5 pg (27.0-31.0); MEAN CORPUSCULAR HGB CONC 33.2 g/dL (33.0-37.0); MEAN PLATELET VOLUME 8.3 fL (7.2-11.7); MONO # 0.6 K/uL (0.0-0.8); MONO % 6.5 % (0.0-10.0); NEUT % 68.8 % (50.0-75.0); RED CELL DISTRIBUTION WIDTH 13.7 % (11.5-14.5); WHITE BLOOD COUNT 8.7 K/uL (4.8-10.8)
--- NOTE | 2018-09-07 18:25 | C.PDOC ---
History Of Present Illness 28 year old female with PMHx of multi-substance use, alcohol use disorder, seizures, schizophrenia who presents to ED via EMS for witnessed seizure just prior to arrival. Patient was at [facility] when her eyes rolled to the back of her head, she fell back and began convulsing. On arrival to ED, patient is not actively seizing. History was obtained via EMS and DYFS personnel who was with the patient at the time. Reportedly, DYFS worker states she picked up the patient in [place] where she lives and brought her to [place] in order to have her attend a rehab center. They stopped at [facility] for a supervised visit with her children where patient was noted to act increasingly bizarre and then have a convulsion. Patient did report to EMS that she took 20 bags of heroine today (IV and intranasal) along with crystal meth and cocaine, which she uses twice daily. She also drinks daily. Reportedly patient did not take her usual afternoon drugs today. <Sameera Guzmán P - Last Filed: 09/07/18 20:57> <Sameera Guzmán P - Last Filed: 09/07/18 20:57> <Julian Lua E - Last Filed: 09/08/18 00:26> <Ramin Arango - Last Filed: 09/08/18 06:27> Time Seen by Provider: 09/07/18 17:23 Chief Complaint (Nursing): Substance Abuse Past Medical History Vital Signs: Last Vital Signs Temp Pulse 84 09/07/18 17:56 Resp 18 09/07/18 17:56 BP 125/92 H 09/07/18 17:56 Pulse Ox 97 09/07/18 17:56 - Medical History PMH: Anemia, Anxiety, Arthritis, Asthma, Back Problems, CAD, CVA (x 3, Protein C/S deficiency), Depression, Deep Vein Thrombosis, HTN, Hypercholesterolemia, Hyperlipidemia, Migraine, Schizophrenia, Seizures, Sickle Cell Disease, TIA, Chronic Pain Denies: Chronic Kidney Disease - [facility] Procedures INJECT/INFUSE NEC (02/07/15) MONITORING OF POC, CARDIAC RATE, MILL ROLL OPERATOR APPROACH (11/22/15) TETANUS TOXOID ADMINIST (10/26/13) Family History: States: Unknown Family Hx, [place] - Social History Hx Tobacco Use: Yes (light smoker) Hx Alcohol Use: Yes Hx Substance Use: Yes - Immunization History Hx Tetanus Toxoid Vaccination: Yes Hx Influenza Vaccination: Yes Hx Pneumococcal Vaccination: Yes <Sameera Guzmán P - Last Filed: 09/07/18 20:57> Vital Signs: Last Vital Signs Temp 98.4 F 09/08/18 00:17 Pulse 66 09/08/18 00:17 Resp 20 09/08/18 00:17 BP 104/65 09/08/18 00:17 Pulse Ox 98 09/08/18 00:17 - [facility] Procedures INJECT/INFUSE NEC (02/07/15) MONITORING OF POC, CARDIAC RATE, MILL ROLL OPERATOR APPROACH (11/22/15) TETANUS TOXOID ADMINIST (10/26/13) <Julian Lua E - Last Filed: 09/08/18 00:26> Vital Signs: Last Vital Signs Temp 98.4 F 09/08/18 00:17 Pulse 65 09/08/18 05:09 Resp 18 09/08/18 05:09 BP 120/76 09/08/18 05:09 Pulse Ox 97 09/08/18 05:09 - [facility] Procedures INJECT/INFUSE NEC (02/07/15) MONITORING OF POC, CARDIAC RATE, MILL ROLL OPERATOR APPROACH (11/22/15) TETANUS TOXOID ADMINIST (10/26/13) <Ramin Arango - Last Filed: 09/08/18 06:27> Review Of Systems Constitutional: Negative for: Fever, Chills, Sweats Gastrointestinal: Positive for: Nausea, Vomiting. Negative for: Abdominal Pain, Diarrhea Genitourinary: Negative for: Dysuria, Frequency Neurological: Positive for: Seizures. Negative for: Weakness, Numbness, Dizziness <Sameera Guzmán P - Last Filed: 09/07/18 20:57> Physical Exam - Physical Exam Appears: Other (uncomfortable in withdrawl following narcan) Skin: Normal Color, Warm, Dry Head: Atraumatic, Normacephalic Eye(s): bilateral: Other (Pupils dilated and sluggish response to light bilaterally) Nose: Normal, No Flaring Throat: Normal, No Erythema Neck: Normal, Normal ROM Cardiovascular: Rhythm Regular, No Rhythm Irregular, No Friction Rub Respiratory: Normal Breath Sounds, No Decreased Breath Sounds, No Accessory Muscle Use, No Rales, No Rhonchi, No Wheezing Gastrointestinal/Abdominal: Normal Exam, Bowel Sounds, Soft, No Tenderness, No Guarding, No Rebound, Other (vomiting) Extremity: Normal ROM, No Tenderness, No Pedal Edema Pulses: Left Dorsalis Pedis: Normal, Right Dorsalis Pedis: Normal Neurological/Psych: Oriented x3, Normal Speech, Normal Cranial Nerves (grossly), Normal Motor <Sameera Guzmán - Last Filed: 09/07/18 20:57> ED Course And Treatment - Laboratory Results Result Diagrams: 09/07/18 18:15 09/07/18 18:15 O2 Sat by Pulse Oximetry: 97 <Sameera Guzmán - Last Filed: 09/07/18 20:57> - Laboratory Results Result Diagrams: 09/07/18 18:15 09/07/18 18:15 <Julian Lua - Last Filed: 09/08/18 00:26> - Laboratory Results Result Diagrams: 09/07/18 18:15 09/07/18 18:15 Pulse Ox Interpretation: Normal Progress Note: dyfs are here to drive the patient to [facility] Reevaluation Time: 06:25 Reassessment Condition: Improved <Ramin Arango - Last Filed: 09/08/18 06:27> Medical Decision Making Medical Decision Making: Plan: CBC: MCV 79.9 CBC: AST: 41 HCG: negative UDS: + opiates, amphetamines, cocaine Patient accepted to [facility] for detox. Patient to be d/c'ed in AM, at which time DYFS worker will pick her up and take her to [facility]. <Sameera Guzmán - Last Filed: 09/07/18 20:57> Medical Decision Making: polysubstance abuse ? OD vs w/d seizures stable in ED d/w Crisis/Psych, defer adm to pre-admitted @ [facility] @ 0700 maintain comfortable overnight in ED <Julian Lua - Last Filed: 09/08/18 00:26> Disposition <Sameera Guzmán - Last Filed: 09/07/18 20:57> - Disposition Disposition Time: 01:00 <Julian Lua - Last Filed: 09/08/18 00:26> Counseled Patient/Family Regarding: Studies Performed, Diagnosis, Need For Followup <Ramin Arango - Last Filed: 09/08/18 06:27> - Disposition Disposition: HOME/ ROUTINE Condition: FAIR Instructions: Drug Abuse and Drug Addiction (DC) Forms: [employer] (Irish) - Clinical Impression Clinical Impression: Substance abuse, Polysubstance abuse Physician Patient Turnover Patient Signed Over To: Ramin Arango Handoff Comments: pending d/c @ 0600 to [facility] to take to [facility]. [place] protocol. anxiety meds PRN <Julian Lua E - Last Filed: 09/08/18 00:26>
[2018-09-07 18:32] LABS: BLOOD UREA NITROGEN 9 mg/dL (7-17); GFR NON-AFRICAN AMERICAN > 60
[2018-09-07 18:33] LABS: ALB/GLOB RATIO 1.2 (1.0-2.1); ALBUMIN 4.2 g/dL (3.5-5.0); ALT/SGPT 22 U/L (9-52); AST/SGOT 41 U/L (14-36)
[2018-09-07 19:52] LABS: BARBITURATES, UR NEGATIVE (NEGATIVE); BENZODIAZEPINES, UR NEGATIVE (NEGATIVE); PHENCYCLIDINE, UR NEGATIVE (NEGATIVE)
[2018-09-07 19:57] LABS: OPIATES, UR POSITIVE (NEGATIVE)
[2018-09-07 20:16] LABS: INR 1.1; PROTHROMBIN TIME 11.7 SECONDS (9.7-12.2)
[2018-09-08] MEDS ORDERED: Ammonia 2% Inhalant ONE (00:46)
[2018-09-08 06:34] VITALS: BP 113/79; PULSE 63; RESP 16; TEMP 98.9; O2SAT 99
== END 2018-09-08 06:35 | disposition home or self-care (01) ==
LOC: C.ER 17:21
DX: F19.10 Other psychoactive substance abuse, uncomplicated (principal)
CPT/HCPCS: 80053; 80320; 80324; 80345; 80346; 80349; 80353; 80358; 80361; 83992; 84703; 85025; 85610; 85730; 96374; 96375; 99285; J2310; J2405

== ENCOUNTER 2018-10-14 16:45 | Inpatient (IN) | payer MEDICAID ==
[2018-10-14] MEDS ORDERED: Iodixanol 320 MG/ML 100 ML BOTTLE IV ONE (17:22)
[2018-10-14 17:25] LABS: BASO # 0.1 K/uL (0.0-0.2); BASO % 1.1 % (0.0-2.0); EOS # 0.1 K/uL (0.0-0.7); EOS % 1.9 % (0.0-4.0); HEMOGLOBIN 13.8 g/dL (11.0-16.0); LYMPH # 2.1 K/uL (1.0-4.3); LYMPH % 26.9 % (20.0-40.0); MEAN CORPUSCULAR HEMOGLOBIN 27.5 pg (27.0-31.0); MEAN CORPUSCULAR HGB CONC 33.4 g/dL (33.0-37.0); MEAN PLATELET VOLUME 8.1 fL (7.2-11.7); MONO # 0.7 K/uL (0.0-0.8); MONO % 9.4 % (0.0-10.0); NEUT # 4.8 K/uL (1.8-7.0); NEUT % 60.7 % (50.0-75.0); NRBC % 0.1 % (0.0-2.0); RBC 5.02 Mil/uL (3.80-5.20); RED CELL DISTRIBUTION WIDTH 14.7 % (11.5-14.5); WHITE BLOOD COUNT 7.9 K/uL (4.8-10.8)
[2018-10-14 17:29] LABS: MEAN CELL VOLUME 82.2 fL (81.0-99.0)
[2018-10-14 17:38] LABS: INR 1.1; PROTHROMBIN TIME 11.5 SECONDS (9.7-12.2)
[2018-10-14 17:40] LABS: ALB/GLOB RATIO 1.2 (1.0-2.1); ALBUMIN 4.1 g/dL (3.5-5.0); ALT/SGPT 16 U/L (9-52); AST/SGOT 18 U/L (14-36); BLOOD UREA NITROGEN 10 mg/dL (7-17); GFR NON-AFRICAN AMERICAN > 60; HDL CHOLESTEROL 51 mg/dL (30-70)
--- NOTE | 2018-10-14 17:45 | CT ---
Date of service: 10/14/2018 PROCEDURE: CT HEAD WITHOUT CONTRAST. HISTORY: Code stroke. COMPARISON: None available. TECHNIQUE: Axial computed tomography images were obtained through the head/brain without intravenous contrast. Radiation dose: Total exam DLP = 1145.09 mGy-cm. This CT exam was performed using one or more of the following dose reduction techniques: Automated exposure control, adjustment of the mA and/or kV according to patient size, and/or use of iterative reconstruction technique. FINDINGS: HEMORRHAGE: No acute parenchymal, subarachnoid or extra-axial hemorrhage. BRAIN: No evidence of large acute infarct however note the possibility of a small hyperacute infarct cannot be excluded. VENTRICLES: No obstructive hydrocephalus. CALVARIUM: No acute calvarial fractures.. PARANASAL SINUSES: Unremarkable as visualized. No significant inflammatory changes. MASTOID AIR CELLS: Unremarkable as visualized. No inflammatory changes. OTHER FINDINGS: None. IMPRESSION: No acute intracranial hemorrhage. Findings discussed with Dr. Machuca at approximately 5:37 p.m. with written down and read back verification.
--- NOTE | 2018-10-14 17:47 | C.PDOC ---
History Of Present Illness 28 y/o female, w/PMhx of polysubstance abuse,seizures, stroke, and protein C and S deficiency, sickle cell disease, HLD,CAD, DVT,presents to the ER for evaluation of left sided weakness. Patient stated that she was recently incarcerated and released 1 week ago. According to boyfriend they were shopping when patient developed facial droop and left arm and leg weakness around 3:30 - 4:00 pm today. She notes that she is non-compliant with her medications including blood thinners and seizure medications. Denies having headache, diz ziness, and visual changes. Code stroke called 17:15 Time Seen by Provider: 10/14/18 16:53 Chief Complaint (Nursing): Weakness/Neurological Deficit History Per: Patient History/Exam Limitations: no limitations Onset/Duration Of Symptoms: Hrs Current Symptoms Are (Timing): Still Present Severity: Moderate Past Medical History Reviewed: Historical Data, Nursing Documentation, Vital Signs Vital Signs: Last Vital Signs Temp 97.5 F L 10/14/18 17:05 Pulse 63 10/14/18 17:05 Resp 18 10/14/18 17:05 BP 107/71 10/14/18 17:05 Pulse Ox 100 10/14/18 17:05 - Medical History PMH: Anemia, Anxiety, Arthritis, Asthma, Back Problems, CAD, CVA (x 3, Protein C/S deficiency), Depression, Deep Vein Thrombosis, HTN, Hypercholesterolemia, Hyperlipidemia, Migraine, Schizophrenia, Seizures, Sickle Cell Disease, TIA, Chronic Pain Denies: Diabetes, Hepatitis, HIV, Chronic Kidney Disease, Sexually Transmitted Disease Other Surgeries: Hx of surgeries - [facility] Procedures INJECT/INFUSE NEC (02/07/15) MONITORING OF POC, CARDIAC RATE, HOME HEALTH CARE PHYSICIAN APPROACH (11/22/15) TETANUS TOXOID ADMINIST (10/26/13) Family History: States: [place] - Social History Hx Tobacco Use: Yes (light smoker) Hx Alcohol Use: Yes Hx Substance Use: Yes - Immunization History Hx Tetanus Toxoid Vaccination: No Hx Influenza Vaccination: No Hx Pneumococcal Vaccination: No Review Of Systems Except As Marked, All Systems Reviewed And Found Negative. Constitutional: Negative for: Fever, Chills Neurological: Positive for: Weakness (left-sided ) Physical Exam - Physical Exam Appears: Non-toxic, No Acute Distress, Other (awake,alert) Head: Normacephalic, Other (left facial droop) Eye(s): bilateral: Normal Inspection, PERRL, EOMI, Other (gaze-negative) Nose: Normal Oral Mucosa: Moist Neck: Supple Chest: Symmetrical Cardiovascular: Rhythm Regular Respiratory: Normal Breath Sounds, No Rales, No Rhonchi, No Wheezing Neurological/Psych: Oriented x3, Normal Speech, No Normal Sensation (decreased sensation of left side- face, arm and leg), Other (weakness of left arm and leg) ED Course And Treatment - Laboratory Results Result Diagrams: 10/14/18 17:21 10/14/18 17:21 Lab Interpretation: No Acute Changes ECG: Interpreted By Me ECG Rhythm: Sinus Bradycardia O2 Sat by Pulse Oximetry: 100 (RA) Pulse Ox Interpretation: Normal Progress Note: Case discussed with Dr Post. Will administer TPA. Patient remains awake and alert in ED. CT results negative for hemorrhage or acute endoluminal thrombosis or occlusion. Risk and benefits of TPA discussed with patient. She has had this treatment in the past and consents to administration. She understands the risk of possible hemorrhage. Reevaluation Time: 18:20 Reassessment Condition: Unchanged (Patient continues to have left sided weakness and left facial droop) - Physician Consult Information Physician Contacted: Jonathan Meza Outcome Of Conversation: He accepts patient on to his service for CVA NIHSS Stroke Scale - Date/Time Evaluation Performed Date Performed: 10/14/18 Time Performed: 17:10 When Was NIHSS Performed: Baseline - How Severe is the Stroke Level of Consciousness: 0=Alert LOC to Questions: 0=Both comments correct LOC to commands: 0=Obeys both correctly Best Gaze: 0=Normal Visual: 0=No visual loss Facial: 2=Partial (lower face paralysis) Motor Arm - Left: 3=No effort against gravity (falls immediately) Motor Arm - Right: 0=No drift Motor Leg - Left: 3=No effort against gravity (falls immediately) Motor Leg - Right: 0=No drift Limb Ataxia: 0=Absent Sensory: 1=Mild to moderate loss Best Language: 0=No aphasia Dysarthia: 0=Normal articulation Extinction & Inattention (Neglect): 0=Normal, no object Score: 9 rTPA Inclusion/Exclusion - Refusal of Treatment Patient Refused Treatment: No - Inclusion Criteria for Altepase Patient is 18 years or Older: Yes The Clinical Diagnosis of Ischemic Stroke That is Causing a Potentially Di sabling Neurological Deficit: Yes Time of Onset is Well Established to be Less Than 270 Minute Before Treatment Would Begin: Yes Risk/Benefit Discussed With Patient/Family Member Present: Yes - Exclusion Criteria for Altepase Uncontrolled Hypertension at Time of Treatment (Systolic BP above 185 or Diastolic BP above 110 mmHg): No Active Internal Bleeding: No Known Bleeding Diathesis Including but Not Limited to: Platelets Below 100,000/mm,PTT Above 40 sec After Heparin Use, Current Use of Oral Anitcoagulant With INR Greater Than 1.7 or PT Greater Than 15 secs: No Evidence of an Intracranial Hemorrhage: No Evidence of Major Acute Infarct With Signs Greater Than 1/3 MCA Territory: No Suspicion of Subarachnoid Hemorrhage on Pretreatment Evaluation Even if CT Head Negative For Hemorrhage: No Disposition - Disposition Disposition: HOSPITALIZED Disposition Time: 18:23 Condition: FAIR - POA Present On Arrival: None - Clinical Impression Clinical Impression: Left-sided weakness, Seizure disorder, Protein C deficiency, History of sickle cell anemia, Polysubstance abuse, Protein S deficiency - Scribe Statement The provider has reviewed the documentation as recorded by the David Moran Provider Attestation All medical record entries made by the Kenaibjoselyn were at my direction and personally dictated by me. I have reviewed the chart and agree that the record accurately reflects my personal performance of the history, physical exam, medical decision making, and the department course for this patient. I have also personally directed, reviewed, and agree with the discharge instructions and disposition.
[2018-10-14 17:51] LABS: LDL CHOLESTEROL 94 mg/dL (0-129)
--- NOTE | 2018-10-14 17:57 | CT ---
Date of service: 10/14/2018 PROCEDURE: CTA HEAD AND NECK WITH CONTRAST HISTORY: code stroke COMPARISON: None available. TECHNIQUE: Initial noncontrast head CT was performed. Subsequently, CT angiogram of the head and neck were performed after the intravenous administration of 80 mL of Omnipaque 350. Contiguous 1.5mm thick images were obtained in the axial plane of the neck. 2-D coronal and sagittal MPR images were obtained. Imaging postprocessing was performed with 3-D images also obtained. A delayed contrast head CT was also obtained. This CT exam was performed using one or more of the following dose reduction techniques: Automated exposure control, adjustment of the mA and/or kV according to patient size, and/or use of iterative reconstruction technique. Contrast dose: 100 mL Visipaque Radiation dose: Total exam DLP = 560.09 mGy-cm. FINDINGS: HEAD: Right: The intracranial internal carotid artery, and anterior and middle cerebral arteries are widely patent. Left: The intracranial internal carotid artery, and anterior and middle cerebral arteries are widely patent. Posterior circulation: The visualized intracranial vertebral arteries, basilar artery and posterior cerebral arteries are widely patent. There is no endoluminal filling defect to suggest thrombus. There is no intracranial saccular aneurysm. NECK: There is a three vessel aortic arch. There is no stenosis at the origins of the great vessels at the level of the aortic arch. No atherosclerotic calcification or mural plaque present. Right Carotid: On the right, the common carotid, internal carotid and external carotid arteries are widely patent. There is no hemodynamically significant stenosis in the internal carotid artery by NASCET criteria. Left Carotid: On the left, the common carotid, internal carotid and external carotid arteries are widely patent. There is no hemodynamically significant stenosis in the internal carotid artery by NASCET criteria. The vertebral arteries are widely patent. The right vertebral artery is hypoplastic, an anatomic variant. The visualized soft tissues of the neck are normal. The visualized brain and cervical spine are within normal limits. The lung apices are clear. There is air in the left brachiocephalic vein likely related to intravenous injection IMPRESSION: 1. No evidence of endoluminal thrombus,occlusion or definite significant stenosis in the intracranial arteries. 2. No evidence of hemodynamically significant stenosis in the internal carotid arteries. 3. Patent bilateral vertebral arteries.
[2018-10-14 18:00] VITALS: BMI 24.7
--- NOTE | 2018-10-14 18:34 | RAD ---
Date of service: 10/14/2018 HISTORY: Code Stroke COMPARISON: 12/26/2017. FINDINGS: LUNGS: The lungs are well inflated and clear. PLEURA: No pleural effusions or pneumothorax. CARDIOVASCULAR: The heart is normal in size. No aortic atherosclerotic calcification present. OSSEOUS STRUCTURES: Within normal limits for the patient's age. VISUALIZED UPPER ABDOMEN: Normal. OTHER FINDINGS: None. IMPRESSION: No active pulmonary disease.
[2018-10-14] MEDS: Sodium Chloride 0.9% 1,000 ML IV SCH (18:47)
--- NOTE | 2018-10-14 20:54 | CP.PCM.CON ---
History of Present Illness - History of Present Illness History of Present Illness: CCM 28 yo female with hx CAD /[place] /Protein C&S def /Sickle Cell Dz/DVT/HLDArthritis /Anemia /Depression /Back problems /Migraines /Schizophrenia / PSA/ IVDA to ED c/o Chest pain and left sided weakness from 15:30 today. Pt was a code stroke in ED and after negative CT was given TPA. No sob/urinary sx/ fever. had voomited and diarrhea yest. Pt released from retirement last week. noncompliant with meds. ROS- as noted All- ketorolac /trimethamine /naproxen /Polyethylene glycol 3350 Social-+tob/ +etoh/ +drugs-IVDA Meds- reviewed FH-unknown PE T-98.2 P-66 R-16 BP-128/70 Alert responisve, nad Perrl Neck- no jvd lungs- bilat bs Chest -+ CW tenderness Heart-rr aBd- benign eXt- no edema Neuro-Left HP, sensory intact Labs,EKG,[id number] A&P Stroke s/p TPA PSA/ IVDA Atypical Chest pain Hx WY /?CAD Protein C&S def Hx DVT Hx Sickle Cell Disease HLD Arthritis Seizures Schizophrenia Depression Admit to ICU neuro checks Neurology eval ECHO Speech and Swallow PT/OT Repeat CT Brain vs MRI- per Neurology Maintain optimal lytes Old records SCD's Critical care time spent with patient 45 min Past Patient History - Infectious Disease Hx of Infectious Diseases: None - Tetanus Immunizations Tetanus Immunization: Unknown - Past Medical History & Family History Past Medical History?: Yes - Past Social History Smoking Status: Current Some Days Smoker - CARDIAC Hx Hypercholesterolemia: Yes Hx Hypertension: Yes - PULMONARY Hx Asthma: Yes - NEUROLOGICAL Hx Migraine: Yes Hx Seizures: Yes Hx Transient Ischemic Attacks (TIA): Yes - HEENT Hx HEENT Problems: No Other/Comment: wears glasses - RENAL Hx Chronic Kidney Disease: No - ENDOCRINE/METABOLIC Hx Endocrine Disorders: Yes Hx Diabetes Mellitus Type 2: Yes - HEMATOLOGICAL/ONCOLOGICAL Hx Anemia: Yes Hx Human Immunodeficiency Virus (HIV): No Hx Sickle Cell Disease: Yes - INTEGUMENTARY Hx Dermatological Problems: No - MUSCULOSKELETAL/RHEUMATOLOGICAL Hx Arthritis: Yes - GASTROINTESTINAL Hx Gastrointestinal Disorders: No - GENITOURINARY/GYNECOLOGICAL Hx Sexually Transmitted Disorders: No - PSYCHIATRIC Hx Anxiety: Yes Hx Depression: Yes Hx Schizophrenia: Yes Hx Substance Use: Yes - SURGICAL HISTORY Hx Surgeries: Yes (L ovarian cyst) Other/Comment: cyst removed from left ovary - ANESTHESIA Hx Anesthesia: Yes Hx Anesthesia Reactions: Yes (states "couldn't breathe") Meds Allergies/Adverse Reactions: Allergies Allergy/AdvReac Type Severity Reaction Status Date / Time ketorolac tromethamine Allergy Mild SWELLING Verified 07/17/18 22:20 [From Toradol] naproxen [From Naprosyn] Allergy Mild URTICARIA Verified 07/17/18 22:20 polyethylene glycol 3350 Allergy Mild RASH Verified 07/17/18 22:20 [From Miralax] shellfish derived Allergy Mild ANAPHYLAXIS Verified 07/17/18 22:20 mushroom Allergy ANAPHYLAXIS Verified 07/17/18 22:20 ibuprofen [From Motrin] AdvReac Mild vomiting Verified 07/17/18 22:20 blood PORK AdvReac DIARRHEA Verified 07/17/18 22:20 nguyen Allergy Severe RASH Uncoded 07/17/18 22:20 - Medications Medications: Current Medications Acetaminophen (Tylenol 650 Mg Supp) 650 mg NV Q6 PRN PRN Reason: Pain, moderate (4-7) Sodium Chloride (Sodium Chloride 0.9%) 1,000 mls @ 100 mls/hr IV .Q10H [id number] Last Admin: 10/14/18 18:47 Dose: 100 mls/hr Results - Vital Signs Recent Vital Signs: Last Vital Signs Temp 98.2 F 10/14/18 19:17 Pulse 70 10/14/18 20:06 Resp 22 10/14/18 20:06 BP 131/75 10/14/18 20:06 Pulse Ox 100 10/14/18 20:06 - Labs Result Diagrams: 10/14/18 17:21 10/14/18 17:21 Labs: Laboratory Results - last 24 hr 10/14/18 10/14/18 10/14/18 17:10 17:21 17:21 WBC 7.9 RBC 5.02 Hgb 13.8 Hct 41.2 MCV 82.2 D MCH 27.5 MCHC 33.4 RDW 14.7 H Plt Count 360 MPV 8.1 Neut % (Auto) 60.7 Lymph % (Auto) 26.9 Fleming % (Auto) 9.4 Eos % (Auto) 1.9 Baso % (Auto) 1.1 Neut # (Auto) 4.8 Lymph # (Auto) 2.1 Fleming # (Auto) 0.7 Eos # (Auto) 0.1 Baso # (Auto) 0.1 PT 11.5 INR 1.1 APTT 32 Sodium Potassium Chloride Carbon Dioxide Anion Gap BUN Creatinine Est GFR ( Amer) Est GFR (Non-Af Amer) POC Glucose (mg/dL) 110 Random Glucose Hemoglobin A1c Calcium Total Bilirubin AST ALT Alkaline Phosphatase Troponin I Total Protein Albumin Globulin Albumin/Globulin Ratio Triglycerides Cholesterol LDL Cholesterol Direct HDL Cholesterol Alcohol, Quantitative Blood Type Antibody Screen 10/14/18 10/14/18 10/14/18 17:21 17:21 17:21 WBC RBC Hgb Hct MCV MCH MCHC RDW Plt Count MPV Neut % (Auto) Lymph % (Auto) Fleming % (Auto) Eos % (Auto) Baso % (Auto) Neut # (Auto) Lymph # (Auto) Fleming # (Auto) Eos # (Auto) Baso # (Auto) PT INR APTT Sodium 140 Potassium 3.6 Chloride 103 Carbon Dioxide 25 Anion Gap 15 BUN 10 Creatinine 0.8 Est GFR ( Amer) > 60 Est GFR (Non-Af Amer) > 60 POC Glucose (mg/dL) Random Glucose 100 Hemoglobin A1c 4.9 Calcium 9.0 Total Bilirubin 0.4 AST 18 ALT 16 Alkaline Phosphatase 61 Troponin I < 0.0120 Total Protein 7.6 Albumin 4.1 Globulin 3.5 Albumin/Globulin Ratio 1.2 Triglycerides 93 Cholesterol 161 LDL Cholesterol Direct 94 HDL Cholesterol 51 Alcohol, Quantitative < 10 Blood Type AB POSITIVE Antibody Screen Negative Assessment & Plan (1) Stroke Status: Acute (2) Polysubstance abuse Status: Chronic (3) Protein C deficiency Status: Chronic (4) Protein S deficiency Status: Acute (5) Seizure disorder Status: Chronic (6) Sickle cell trait Status: Chronic
[2018-10-14 23:36] LABS: BARBITURATES, UR NEGATIVE (NEGATIVE); BENZODIAZEPINES, UR NEGATIVE (NEGATIVE); OPIATES, UR NEGATIVE (NEGATIVE); PHENCYCLIDINE, UR NEGATIVE (NEGATIVE)
[2018-10-15] MEDS: Sodium Chloride 0.9% 1,000 ML IV SCH ×4 (03:15→17:45)
[2018-10-15 06:20] LABS: BASO # 0.1 K/uL (0.0-0.2); BASO % 1.4 % (0.0-2.0); EOS # 0.3 K/uL (0.0-0.7); EOS % 3.8 % (0.0-4.0); HEMOGLOBIN 13.5 g/dL (11.0-16.0); LYMPH # 3.1 K/uL (1.0-4.3); LYMPH % 34.1 % (20.0-40.0); MEAN CELL VOLUME 81.4 fL (81.0-99.0); MEAN CORPUSCULAR HEMOGLOBIN 26.4 pg (27.0-31.0); MEAN CORPUSCULAR HGB CONC 32.5 g/dL (33.0-37.0); MEAN PLATELET VOLUME 8.4 fL (7.2-11.7); MONO # 0.8 K/uL (0.0-0.8); MONO % 8.8 % (0.0-10.0); NEUT # 4.7 K/uL (1.8-7.0); NEUT % 51.9 % (50.0-75.0); NRBC % 0.2 % (0.0-2.0); RBC 5.09 Mil/uL (3.80-5.20); RED CELL DISTRIBUTION WIDTH 14.7 % (11.5-14.5)
[2018-10-15 06:28] LABS: ALB/GLOB RATIO 1.1 (1.0-2.1); ALBUMIN 3.5 g/dL (3.5-5.0); ALT/SGPT 20 U/L (9-52); AST/SGOT 13 U/L (14-36); BLOOD UREA NITROGEN 8 mg/dL (7-17); CALCIUM 8.5 mg/dl (8.6-10.4); GFR NON-AFRICAN AMERICAN > 60
--- NOTE | 2018-10-15 07:16 | CP.CCUPN ---
<Humberto Vee - Last Filed: 10/15/18 13:38> CCU Subjective - Physician Review Subjective (Free Text): 10/15/18 10:00 Patient seen and examined at bedside. No acute events overnight. Patient is complaining of a headache. Patient states she is feeling better and is ambulating well. Critical Care Time Spent (in minutes): 35 CCU Objective - Vital Signs / Intake & Output Vital Signs (Last 4 hours): Vital Signs Temp Pulse Resp BP Pulse Ox 10/15/18 05:12 64 18 113/64 100 10/15/18 04:12 72 18 117/69 99 10/15/18 04:00 98.6 F Intake and Output (Last 8hrs): Intake & Output 10/14/18 10/15/18 10/15/18 22:59 06:59 14:59 Intake Total 800 800 Output Total 300 Balance 500 800 Weight 76.204 kg 73.482 kg Intake: Intake, IV Amount 300 800 Right Forearm 300 800 Oral 500 Output: Urine 300 Urine, Voided 300 - Physical Exam Head: Positive for: Atraumatic, Normocephalic Pupils: Positive for: PERRL Conjunctiva: Positive for: Normal Mouth: Positive for: Moist Mucous Membranes Neck: Positive for: Normal Range of Motion Respiratory/Chest: Positive for: Clear to Auscultation. Negative for: Respiratory Distress, Accessory Muscle Use, Wheezes, Rales, Rhonchi Cardiovascular: Positive for: Regular Rate and Rhythm, Normal S1, S2. Negative for: Murmurs, Rub, Gallop Abdomen: Positive for: Normal Bowel Sounds. Negative for: Tenderness, Distention, Peritoneal Signs Upper Extremity: Positive for: Normal Inspection Lower Extremity: Positive for: Normal Inspection Neurological: Positive for: GCS=15, CN II-XII Intact, Speech Normal Skin: Positive for: Warm, Dry, Normal Color. Negative for: Rashes Psychiatric: Positive for: Alert, Oriented x 3, Lethargic - Medications Active Medications: Active Medications Generic Name Dose Route Start Last Admin Trade Name Freq PRN Reason Stop Dose Admin Acetaminophen 650 mg 10/14/18 19:37 Tylenol 650 Mg Supp DC Q6 PRN Pain, moderate (4-7) Gabapentin 300 mg 10/14/18 21:45 10/14/18 21:45 Neurontin PO 300 mg BID SIGIFREDO Administration Sodium Chloride 1,000 mls @ 100 mls/hr 10/14/18 17:15 10/15/18 05:21 Sodium Chloride 0.9% IV 100 mls/hr .Q10H SIGIFREDO Administration Potassium Chloride 10 meq in 100 mls @ 100 mls/hr 10/15/18 07:15 Potassium Chloride 10 Meq/100 Ml IVPB 10/15/18 09:14 Q1H SIGIFREDO Topiramate 100 mg 10/14/18 22:00 10/14/18 22:00 Topamax PO 100 mg BID SIGIFREDO Administration - Patient Studies Lab Studies: Lab Studies 10/15/18 10/15/18 10/14/18 Range/Units 05:49 05:49 23:18 WBC 9.0 (4.8-10.8) K/uL RBC 5.09 (3.80-5.20) Mil/uL Hgb 13.5 (11.0-16.0) g/dL Hct 41.4 (34.0-47.0) % MCV 81.4 (81.0-99.0) fL MCH 26.4 L (27.0-31.0) pg MCHC 32.5 L (33.0-37.0) g/dL RDW 14.7 H (11.5-14.5) % Plt Count 343 (130-400) K/uL MPV 8.4 (7.2-11.7) fL Neut % (Auto) 51.9 (50.0-75.0) % Lymph % (Auto) 34.1 (20.0-40.0) % [place] % (Auto) 8.8 (0.0-10.0) % Eos % (Auto) 3.8 (0.0-4.0) % Baso % (Auto) 1.4 (0.0-2.0) % Neut # (Auto) 4.7 (1.8-7.0) K/uL Lymph # (Auto) 3.1 (1.0-4.3) K/uL [place] # (Auto) 0.8 (0.0-0.8) K/uL Eos # (Auto) 0.3 (0.0-0.7) K/uL Baso # (Auto) 0.1 (0.0-0.2) K/uL PT (9.7-12.2) SECONDS INR APTT (21-34) SECONDS Sodium 141 (132-148) mmol/L Potassium 3.5 L (3.6-5.2) mmol/L Chloride 106 (98-107) mmol/L Carbon Dioxide 24 (22-30) mmol/L Anion Gap 14 (10-20) BUN 8 (7-17) mg/dL Creatinine 0.7 (0.7-1.2) mg/dL Est GFR ( Amer) > 60 Est GFR (Non-Af Amer) > 60 POC Glucose (mg/dL) (65-110) mg/dL Random Glucose 85 (65-105) mg/dL Hemoglobin A1c (4.2-6.5) % Calcium 8.5 L (8.6-10.4) mg/dl Total Bilirubin 0.4 (0.2-1.3) mg/dL AST 13 L D (14-36) U/L ALT 20 (9-52) U/L Alkaline Phosphatase 55 (38-126) U/L Troponin I (0.00-0.120) ng/mL Total Protein 6.7 (6.3-8.3) g/dL Albumin 3.5 (3.5-5.0) g/dL Globulin 3.2 (2.2-3.9) gm/dL Albumin/Globulin Ratio 1.1 (1.0-2.1) Triglycerides (0-149) mg/dL Cholesterol (0-199) mg/dL LDL Cholesterol Direct (0-129) mg/dL HDL Cholesterol (30-70) mg/dL Urine HCG, Qual Negative (NEGATIVE) Urine Opiates Screen (NEGATIVE) Urine Methadone Screen (NEGATIVE) Ur Barbiturates Screen (NEGATIVE) Ur Phencyclidine Scrn (NEGATIVE) Ur Amphetamines Screen (NEGATIVE) U Benzodiazepines Scrn (NEGATIVE) U Oth Cocaine Metabols (NEGATIVE) U Cannabinoids Screen (NEGATIVE) Alcohol, Quantitative (0-10) mg/dl Blood Type Antibody Screen 10/14/18 10/14/18 10/14/18 Range/Units 23:18 20:39 17:21 WBC (4.8-10.8) K/uL RBC (3.80-5.20) Mil/uL Hgb (11.0-16.0) g/dL Hct (34.0-47.0) % MCV (81.0-99.0) fL MCH (27.0-31.0) pg MCHC (33.0-37.0) g/dL RDW (11.5-14.5) % Plt Count (130-400) K/uL MPV (7.2-11.7) fL Neut % (Auto) (50.0-75.0) % Lymph % (Auto) (20.0-40.0) % [place] % (Auto) (0.0-10.0) % Eos % (Auto) (0.0-4.0) % Baso % (Auto) (0.0-2.0) % Neut # (Auto) (1.8-7.0) K/uL Lymph # (Auto) (1.0-4.3) K/uL [place] # (Auto) (0.0-0.8) K/uL Eos # (Auto) (0.0-0.7) K/uL Baso # (Auto) (0.0-0.2) K/uL PT (9.7-12.2) SECONDS INR APTT (21-34) SECONDS Sodium (132-148) mmol/L Potassium (3.6-5.2) mmol/L Chloride (98-107) mmol/L Carbon Dioxide (22-30) mmol/L Anion Gap (10-20) BUN (7-17) mg/dL Creatinine (0.7-1.2) mg/dL Est GFR ( Amer) Est GFR (Non-Af Amer) POC Glucose (mg/dL) 80 (65-110) mg/dL Random Glucose (65-105) mg/dL Hemoglobin A1c (4.2-6.5) % Calcium (8.6-10.4) mg/dl Total Bilirubin (0.2-1.3) mg/dL AST (14-36) U/L ALT (9-52) U/L Alkaline Phosphatase (38-126) U/L Troponin I (0.00-0.120) ng/mL Total Protein (6.3-8.3) g/dL Albumin (3.5-5.0) g/dL Globulin (2.2-3.9) gm/dL Albumin/Globulin Ratio (1.0-2.1) Triglycerides (0-149) mg/dL Cholesterol (0-199) mg/dL LDL Cholesterol Direct (0-129) mg/dL HDL Cholesterol (30-70) mg/dL Urine HCG, Qual (NEGATIVE) Urine Opiates Screen Negative (NEGATIVE) Urine Methadone Screen Negative (NEGATIVE) Ur Barbiturates Screen Negative (NEGATIVE) Ur Phencyclidine Scrn Negative (NEGATIVE) Ur Amphetamines Screen Positive H (NEGATIVE) U Benzodiazepines Scrn Negative (NEGATIVE) U Oth Cocaine Metabols Positive H (NEGATIVE) U Cannabinoids Screen Negative (NEGATIVE) Alcohol, Quantitative (0-10) mg/dl Blood Type AB POSITIVE Antibody Screen Negative 10/14/18 10/14/18 10/14/18 Range/Units 17:21 17:21 17:21 WBC (4.8-10.8) K/uL RBC (3.80-5.20) Mil/uL Hgb (11.0-16.0) g/dL Hct (34.0-47.0) % MCV (81.0-99.0) fL MCH (27.0-31.0) pg MCHC (33.0-37.0) g/dL RDW (11.5-14.5) % Plt Count (130-400) K/uL MPV (7.2-11.7) fL Neut % (Auto) (50.0-75.0) % Lymph % (Auto) (20.0-40.0) % [place] % (Auto) (0.0-10.0) % Eos % (Auto) (0.0-4.0) % Baso % (Auto) (0.0-2.0) % Neut # (Auto) (1.8-7.0) K/uL Lymph # (Auto) (1.0-4.3) K/uL [place] # (Auto) (0.0-0.8) K/uL Eos # (Auto) (0.0-0.7) K/uL Baso # (Auto) (0.0-0.2) K/uL PT 11.5 (9.7-12.2) SECONDS INR 1.1 APTT 32 (21-34) SECONDS Sodium 140 (132-148) mmol/L Potassium 3.6 (3.6-5.2) mmol/L Chloride 103 (98-107) mmol/L Carbon Dioxide 25 (22-30) mmol/L Anion Gap 15 (10-20) BUN 10 (7-17) mg/dL Creatinine 0.8 (0.7-1.2) mg/dL Est GFR ( Amer) > 60 Est GFR (Non-Af Amer) > 60 POC Glucose (mg/dL) (65-110) mg/dL Random Glucose 100 (65-105) mg/dL Hemoglobin A1c 4.9 (4.2-6.5) % Calcium 9.0 (8.6-10.4) mg/dl Total Bilirubin 0.4 (0.2-1.3) mg/dL AST 18 (14-36) U/L ALT 16 (9-52) U/L Alkaline Phosphatase 61 (38-126) U/L Troponin I < 0.0120 (0.00-0.120) ng/mL Total Protein 7.6 (6.3-8.3) g/dL Albumin 4.1 (3.5-5.0) g/dL Globulin 3.5 (2.2-3.9) gm/dL Albumin/Globulin Ratio 1.2 (1.0-2.1) Triglycerides 93 (0-149) mg/dL Cholesterol 161 (0-199) mg/dL LDL Cholesterol Direct 94 (0-129) mg/dL HDL Cholesterol 51 (30-70) mg/dL Urine HCG, Qual (NEGATIVE) Urine Opiates Screen (NEGATIVE) Urine Methadone Screen (NEGATIVE) Ur Barbiturates Screen (NEGATIVE) Ur Phencyclidine Scrn (NEGATIVE) Ur Amphetamines Screen (NEGATIVE) U Benzodiazepines Scrn (NEGATIVE) U Oth Cocaine Metabols (NEGATIVE) U Cannabinoids Screen (NEGATIVE) Alcohol, Quantitative < 10 (0-10) mg/dl Blood Type Antibody Screen 10/14/18 10/14/18 Range/Units 17:21 17:10 WBC 7.9 (4.8-10.8) K/uL RBC 5.02 (3.80-5.20) Mil/uL Hgb 13.8 (11.0-16.0) g/dL Hct 41.2 (34.0-47.0) % MCV 82.2 D (81.0-99.0) fL MCH 27.5 (27.0-31.0) pg MCHC 33.4 (33.0-37.0) g/dL RDW 14.7 H (11.5-14.5) % Plt Count 360 (130-400) K/uL MPV 8.1 (7.2-11.7) fL Neut % (Auto) 60.7 (50.0-75.0) % Lymph % (Auto) 26.9 (20.0-40.0) % [place] % (Auto) 9.4 (0.0-10.0) % Eos % (Auto) 1.9 (0.0-4.0) % Baso % (Auto) 1.1 (0.0-2.0) % Neut # (Auto) 4.8 (1.8-7.0) K/uL Lymph # (Auto) 2.1 (1.0-4.3) K/uL [place] # (Auto) 0.7 (0.0-0.8) K/uL Eos # (Auto) 0.1 (0.0-0.7) K/uL Baso # (Auto) 0.1 (0.0-0.2) K/uL PT (9.7-12.2) SECONDS INR APTT (21-34) SECONDS Sodium (132-148) mmol/L Potassium (3.6-5.2) mmol/L Chloride (98-107) mmol/L Carbon Dioxide (22-30) mmol/L Anion Gap (10-20) BUN (7-17) mg/dL Creatinine (0.7-1.2) mg/dL Est GFR ( Amer) Est GFR (Non-Af Amer) POC Glucose (mg/dL) 110 (65-110) mg/dL Random Glucose (65-105) mg/dL Hemoglobin A1c (4.2-6.5) % Calcium (8.6-10.4) mg/dl Total Bilirubin (0.2-1.3) mg/dL AST (14-36) U/L ALT (9-52) U/L Alkaline Phosphatase (38-126) U/L Troponin I (0.00-0.120) ng/mL Total Protein (6.3-8.3) g/dL Albumin (3.5-5.0) g/dL Globulin (2.2-3.9) gm/dL Albumin/Globulin Ratio (1.0-2.1) Triglycerides (0-149) mg/dL Cholesterol (0-199) mg/dL LDL Cholesterol Direct (0-129) mg/dL HDL Cholesterol (30-70) mg/dL Urine HCG, Qual (NEGATIVE) Urine Opiates Screen (NEGATIVE) Urine Methadone Screen (NEGATIVE) Ur Barbiturates Screen (NEGATIVE) Ur Phencyclidine Scrn (NEGATIVE) Ur Amphetamines Screen (NEGATIVE) U Benzodiazepines Scrn (NEGATIVE) U Oth Cocaine Metabols (NEGATIVE) U Cannabinoids Screen (NEGATIVE) Alcohol, Quantitative (0-10) mg/dl Blood Type Antibody Screen Laboratory Results - last 24 hr 10/14/18 10/14/18 10/14/18 17:10 17:21 17:21 WBC 7.9 RBC 5.02 Hgb 13.8 Hct 41.2 MCV 82.2 D MCH 27.5 MCHC 33.4 RDW 14.7 H Plt Count 360 MPV 8.1 Neut % (Auto) 60.7 Lymph % (Auto) 26.9 [place] % (Auto) 9.4 Eos % (Auto) 1.9 Baso % (Auto) 1.1 Neut # (Auto) 4.8 Lymph # (Auto) 2.1 [place] # (Auto) 0.7 Eos # (Auto) 0.1 Baso # (Auto) 0.1 PT 11.5 INR 1.1 APTT 32 Sodium Potassium Chloride Carbon Dioxide Anion Gap BUN Creatinine Est GFR ( Amer) Est GFR (Non-Af Amer) POC Glucose (mg/dL) 110 Random Glucose Hemoglobin A1c Calcium Total Bilirubin AST ALT Alkaline Phosphatase Troponin I Total Protein Albumin Globulin Albumin/Globulin Ratio Triglycerides Cholesterol LDL Cholesterol Direct HDL Cholesterol Urine HCG, Qual Urine Opiates Screen Urine Methadone Screen Ur Barbiturates Screen Ur Phencyclidine Scrn Ur Amphetamines Screen U Benzodiazepines Scrn U Oth Cocaine Metabols U Cannabinoids Screen Alcohol, Quantitative Blood Type Antibody Screen 10/14/18 10/14/18 10/14/18 17:21 17:21 17:21 WBC RBC Hgb Hct MCV MCH MCHC RDW Plt Count MPV Neut % (Auto) Lymph % (Auto) [place] % (Auto) Eos % (Auto) Baso % (Auto) Neut # (Auto) Lymph # (Auto) [place] # (Auto) Eos # (Auto) Baso # (Auto) PT INR APTT Sodium 140 Potassium 3.6 Chloride 103 Carbon Dioxide 25 Anion Gap 15 BUN 10 Creatinine 0.8 Est GFR ( Amer) > 60 Est GFR (Non-Af Amer) > 60 POC Glucose (mg/dL) Random Glucose 100 Hemoglobin A1c 4.9 Calcium 9.0 Total Bilirubin 0.4 AST 18 ALT 16 Alkaline Phosphatase 61 Troponin I < 0.0120 Total Protein 7.6 Albumin 4.1 Globulin 3.5 Albumin/Globulin Ratio 1.2 Triglycerides 93 Cholesterol 161 LDL Cholesterol Direct 94 HDL Cholesterol 51 Urine HCG, Qual Urine Opiates Screen Urine Methadone Screen Ur Barbiturates Screen Ur Phencyclidine Scrn Ur Amphetamines Screen U Benzodiazepines Scrn U Oth Cocaine Metabols U Cannabinoids Screen Alcohol, Quantitative < 10 Blood Type AB POSITIVE Antibody Screen Negative 10/14/18 10/14/18 10/14/18 20:39 23:18 23:18 WBC RBC Hgb Hct MCV MCH MCHC RDW Plt Count MPV Neut % (Auto) Lymph % (Auto) [place] % (Auto) Eos % (Auto) Baso % (Auto) Neut # (Auto) Lymph # (Auto) [place] # (Auto) Eos # (Auto) Baso # (Auto) PT INR APTT Sodium Potassium Chloride Carbon Dioxide Anion Gap BUN Creatinine Est GFR ( Amer) Est GFR (Non-Af Amer) POC Glucose (mg/dL) 80 Random Glucose Hemoglobin A1c Calcium Total Bilirubin AST ALT Alkaline Phosphatase Troponin I Total Protein Albumin Globulin Albumin/Globulin Ratio Triglycerides Cholesterol LDL Cholesterol Direct HDL Cholesterol Urine HCG, Qual Negative Urine Opiates Screen Negative Urine Methadone Screen Negative Ur Barbiturates Screen Negative Ur Phencyclidine Scrn Negative Ur Amphetamines Screen Positive H U Benzodiazepines Scrn Negative U Oth Cocaine Metabols Positive H U Cannabinoids Screen Negative Alcohol, Quantitative Blood Type Antibody Screen 10/15/18 10/15/18 05:49 05:49 WBC 9.0 RBC 5.09 Hgb 13.5 Hct 41.4 MCV 81.4 MCH 26.4 L MCHC 32.5 L RDW 14.7 H Plt Count 343 MPV 8.4 Neut % (Auto) 51.9 Lymph % (Auto) 34.1 [place] % (Auto) 8.8 Eos % (Auto) 3.8 Baso % (Auto) 1.4 Neut # (Auto) 4.7 Lymph # (Auto) 3.1 [place] # (Auto) 0.8 Eos # (Auto) 0.3 Baso # (Auto) 0.1 PT INR APTT Sodium 141 Potassium 3.5 L Chloride 106 Carbon Dioxide 24 Anion Gap 14 BUN 8 Creatinine 0.7 Est GFR ( Amer) > 60 Est GFR (Non-Af Amer) > 60 POC Glucose (mg/dL) Random Glucose 85 Hemoglobin A1c Calcium 8.5 L Total Bilirubin 0.4 AST 13 L D ALT 20 Alkaline Phosphatase 55 Troponin I Total Protein 6.7 Albumin 3.5 Globulin 3.2 Albumin/Globulin Ratio 1.1 Triglycerides Cholesterol LDL Cholesterol Direct HDL Cholesterol Urine HCG, Qual Urine Opiates Screen Urine Methadone Screen Ur Barbiturates Screen Ur Phencyclidine Scrn Ur Amphetamines Screen U Benzodiazepines Scrn U Oth Cocaine Metabols U Cannabinoids Screen Alcohol, Quantitative Blood Type Antibody Screen EKG/Cardiology Studies: Cardiology / EKG Studies 10/14/18 17:13 ELECTROCARDIOGRAM Stat Comment: 5 Mode Of Transportation: STRETCHER Reason For Exam: code stroke 10/14/18 22:27 EKG [ELECTROCARDIOGRAM] Stat Comment: Mode Of Transportation: STRETCHER Reason For Exam: Post TPA Fingerstick Blood Sugar Results: 110 Critical Care Progress Note - Nutrition Nutrition: Nutrition Category Date Time Status Liquid Diet [DIET] Diets 10/15/18 Breakfast Active Assessment/Plan - Assessment and Plan (Free Text) Assessment: Patient is a 28 year old female with PMHx of CAD, [place], Protein C&S def., Sickle Cell Dz, DVT, HLD, Arthritis, Anemia, Depression, Migraines, Schizophrenia, and IVDA presenting with chest pain and left sided weakness. Pt was a code stroke in ED and after negative CT was given TPA. Plan: Neuro: Acute CVA - CT head: No evidence of endoluminal thrombus,occlusion or definite significant stenosis in the intracranial arteries. No evidence of hemodynamically significant stenosis in the internal carotid arteries. - Head/neck CTA: No evidence of endoluminal thrombus,occlusion or definite significant stenosis in the intracranial arteries. No evidence of he modynamically significant stenosis in the internal carotid arteries. Patent bilateral vertebral arteries. - TPA administered in ED - Eliquis 5mg PO Q12 - Neurology consulted, Dr. Post - Neurochecks Q4 - Passed speech and swallow evaluation - PT/OT - Repeat CT head Hx of migraine headaches - Topiramate 150mg PO BID Cardiovascular: Sinus bradycardia - EKG: Sinus bradycardia at 56 - Echo: f/u Pulm: - CXR: no active disease - No acute issues GI: - No acute issues Renal: - No acute issues Heme: Protein C and S deficiency - Eliquis 5mg PO Q12 Musculoskeletal: Chronic back pain - Gabapentin 300 TID - Dilaudid 0.5mg IV Q4 PRN ID: - No acute issues Prophylaxis: - SCD's - VTE contrainidacted - CVA Case discussed with Dr. Maikel Vee, PGY-1 <Cara Meza - Last Filed: 10/17/18 11:05> CCU Objective - Vital Signs / Intake & Output Intake and Output (Last 8hrs): Intake & Output 10/16/18 10/17/18 10/17/18 22:59 06:59 14:59 Intake Total 1010 200 Output Total 900 300 Balance 110 -100 Intake: Oral 1010 200 Output: Urine 900 300 Urine, Voided 900 300 Other: # Voids Urine, Voided 1 - Medications Active Medications: Active Medications Generic Name Dose Route Start Last Admin Trade Name Freq PRN Reason Stop Dose Admin Acetaminophen 650 mg 10/16/18 11:50 Tylenol 325mg Tab PO Q6 PRN Pain, Mild (1-3) Apixaban 5 mg 10/15/18 22:00 10/17/18 10:21 Eliquis PO 5 mg Q12 SIGIFREDO Administration Gabapentin 300 mg 10/15/18 10:00 10/17/18 10:21 Neurontin PO 300 mg TID SIGIFREDO Administration Hydromorphone HCl 0.5 mg 10/15/18 09:15 10/17/18 10:22 Dilaudid IVP 0.5 mg Q4H PRN Administration Pain, severe (8-10) Rosuvastatin Calcium 5 mg 10/15/18 23:45 10/16/18 21:42 Crestor PO 5 mg HS SIGIFREDO Administration Topiramate 150 mg 10/15/18 18:00 10/17/18 10:21 Topamax PO 150 mg BID SIGIFREDO Administration - Patient Studies Lab Studies: Microbiology Studies 10/15/18 01:37 MRSA Culture (Admit) - Final Nose MRSA NOT DETECTED Lab Studies 10/17/18 10/17/1818 Range/Units 06:17 06:17 17:04 WBC 9.6 (4.8-10.8) K/uL RBC 4.80 (3.80-5.20) Mil/uL Hgb 13.2 (11.0-16.0) g/dL Hct 40.6 (34.0-47.0) % MCV 84.7 (81.0-99.0) fL MCH 27.5 (27.0-31.0) pg MCHC 32.4 L (33.0-37.0) g/dL RDW 14.7 H (11.5-14.5) % Plt Count 317 (130-400) K/uL MPV 8.1 (7.2-11.7) fL Neut % (Auto) 68.4 (50.0-75.0) % Lymph % (Auto) 20.7 (20.0-40.0) % [place] % (Auto) 7.1 (0.0-10.0) % Eos % (Auto) 2.7 (0.0-4.0) % Baso % (Auto) 1.1 (0.0-2.0) % Neut # (Auto) 6.5 (1.8-7.0) K/uL Lymph # (Auto) 2.0 (1.0-4.3) K/uL [place] # (Auto) 0.7 (0.0-0.8) K/uL Eos # (Auto) 0.3 (0.0-0.7) K/uL Baso # (Auto) 0.1 (0.0-0.2) K/uL Sodium 138 (132-148) mmol/L Potassium 4.0 (3.6-5.2) mmol/L Chloride 110 H (98-107) mmol/L Carbon Dioxide 18 L (22-30) mmol/L Anion Gap 14 (10-20) BUN 12 (7-17) mg/dL Creatinine 0.9 (0.7-1.2) mg/dL Est GFR ( Amer) > 60 Est GFR (Non-Af Amer) > 60 POC Glucose (mg/dL) 130 H (65-110) mg/dL Random Glucose 88 (65-105) mg/dL Calcium 8.4 L (8.6-10.4) mg/dl Phosphorus 4.3 (2.5-4.5) mg/dL Magnesium 2.2 (1.6-2.3) mg/dL Total Bilirubin 0.4 (0.2-1.3) mg/dL AST 21 (14-36) U/L ALT 12 (9-52) U/L Alkaline Phosphatase 71 (38-126) U/L Total Protein 7.1 (6.3-8.3) g/dL Albumin 3.7 (3.5-5.0) g/dL Globulin 3.4 (2.2-3.9) gm/dL Albumin/Globulin Ratio 1.1 (1.0-2.1) 10/16/18 10/16/18 10/16/18 Range/Units 11:49 10:59 10:58 WBC (4.8-10.8) K/uL RBC (3.80-5.20) Mil/uL Hgb (11.0-16.0) g/dL Hct (34.0-47.0) % MCV (81.0-99.0) fL MCH (27.0-31.0) pg MCHC (33.0-37.0) g/dL RDW (11.5-14.5) % Plt Count (130-400) K/uL MPV (7.2-11.7) fL Neut % (Auto) (50.0-75.0) % Lymph % (Auto) (20.0-40.0) % [place] % (Auto) (0.0-10.0) % Eos % (Auto) (0.0-4.0) % Baso % (Auto) (0.0-2.0) % Neut # (Auto) (1.8-7.0) K/uL Lymph # (Auto) (1.0-4.3) K/uL [place] # (Auto) (0.0-0.8) K/uL Eos # (Auto) (0.0-0.7) K/uL Baso # (Auto) (0.0-0.2) K/uL Sodium (132-148) mmol/L Potassium (3.6-5.2) mmol/L Chloride (98-107) mmol/L Carbon Dioxide (22-30) mmol/L Anion Gap (10-20) BUN (7-17) mg/dL Creatinine (0.7-1.2) mg/dL Est GFR ( Amer) Est GFR (Non-Af Amer) POC Glucose (mg/dL) 159 H 71 68 (65-110) mg/dL Random Glucose (65-105) mg/dL Calcium (8.6-10.4) mg/dl Phosphorus (2.5-4.5) mg/dL Magnesium (1.6-2.3) mg/dL Total Bilirubin (0.2-1.3) mg/dL AST (14-36) U/L ALT (9-52) U/L Alkaline Phosphatase (38-126) U/L Total Protein (6.3-8.3) g/dL Albumin (3.5-5.0) g/dL Globulin (2.2-3.9) gm/dL Albumin/Globulin Ratio (1.0-2.1) Laboratory Results - last 24 hr 10/16/18 10/16/18 10/16/18 10:58 10:59 11:49 WBC RBC Hgb Hct MCV MCH MCHC RDW Plt Count MPV Neut % (Auto) Lymph % (Auto) [place] % (Auto) Eos % (Auto) Baso % (Auto) Neut # (Auto) Lymph # (Auto) [place] # (Auto) Eos # (Auto) Baso # (Auto) Sodium Potassium Chloride Carbon Dioxide Anion Gap BUN Creatinine Est GFR ( Amer) Est GFR (Non-Af Amer) POC Glucose (mg/dL) 68 71 159 H Random Glucose Calcium Phosphorus Magnesium Total Bilirubin AST ALT Alkaline Phosphatase Total Protein Albumin Globulin Albumin/Globulin Ratio 10/16/18 10/17/18 10/17/18 17:04 06:17 06:17 WBC 9.6 RBC 4.80 Hgb 13.2 Hct 40.6 MCV 84.7 MCH 27.5 MCHC 32.4 L RDW 14.7 H Plt Count 317 MPV 8.1 Neut % (Auto) 68.4 Lymph % (Auto) 20.7 [place] % (Auto) 7.1 Eos % (Auto) 2.7 Baso % (Auto) 1.1 Neut # (Auto) 6.5 Lymph # (Auto) 2.0 [place] # (Auto) 0.7 Eos # (Auto) 0.3 Baso # (Auto) 0.1 Sodium 138 Potassium 4.0 Chloride 110 H Carbon Dioxide 18 L Anion Gap 14 BUN 12 Creatinine 0.9 Est GFR ( Amer) > 60 Est GFR (Non-Af Amer) > 60 POC Glucose (mg/dL) 130 H Random Glucose 88 Calcium 8.4 L Phosphorus 4.3 Magnesium 2.2 Total Bilirubin 0.4 AST 21 ALT 12 Alkaline Phosphatase 71 Total Protein 7.1 Albumin 3.7 Globulin 3.4 Albumin/Globulin Ratio 1.1 Critical Care Progress Note - Nutrition Nutrition: Nutrition Category Date Time Status Heart Healthy Diet [DIET] Diets 10/15/18 Lunch Active Assessment/Plan - Assessment and Plan (Free Text) Plan: PAtient with transient neurological deficiency with onset/[place] in an irratic pattern not correlated with any cerebral artery blood flow. -possible malingering -psych eval pending -restart NOAC after MRI reveals no ICH post tPA - Date & Time Date: 10/15/18 Time: 19:00
[2018-10-15] MEDS: HYDROmorphone 0.5 mg/0.5 ml ISec IVP PRN ×3 (09:18→17:38)
--- NOTE | 2018-10-15 10:52 | CP.PCM.CON ---
History of Present Illness - History of Present Illness History of Present Illness: Consult note for Dr. Haque Patient is a 28 year old female with a past medical history of polysubstance abuse, seizures, stroke, protein C and S deficiency, sickle cell disease, HLD, CAD, DVT,who presented to the ER with complaints of left sided chest pain and left sided weakness. Patient reports she was with her boyfriend visiting their child at an office and suddenly she developed left sided chest pain, left arm and leg weakness, and couldn't speak. She says she "couldn't move". She was then brought to the ER, code stroke was called, and patient went for imaging. Head CT and CTA were negative. tPA was then given. The patient states yesterday evening after receiving medications,her symptoms improved, but she still feels weak. The patient reports having several previous CVAs, one in 2009 (her symptom: loss of vision), 2010 ("due to too much cocaine") and another one about 5 years ago because she wasn't taking her blood thinners (symptom:blurry vision). She also says she has not been taking her medication for the last 3 months because she "is lazy". She is supposed to be taking eliquis 5mg po bid, gabapentin 300mg tid, topamax 100mg po bid, and two other medications for insomnia and anxiety. She says she has been getting approximately 4 seizures per week over the last 3 months, and her last seizure was yesterday.The patient currently complains of left arm weakness, left leg weakness, and facial droop. She currently denies chest pain, palpitations, nausea, vomiting, dizziness, headaches, dysuria, incontinence, loss of bowel. PMHx: polysubstance abuse, seizures, stroke, protein C and S deficiency, sickle cell disease, HLD, CAD, DVT FamHx: Mother- DM, HTN; Brother- HTN? SocHx: denies drinking etoh ("only if she cant find water"); smokes 1ppd x15yrs; admits to elicit drug use ("all street drugs, cocaine, heroin, amphetamines" via snorting, smoking, and IV) Allergies: motrin, naproxen, miralax (hives) Medications: eliquis 5mg po bid, gabapentin 300mg tid, topamax 100mg po bid, and two other medications for insomnia and anxiety. Review of Systems - Constitutional Constitutional: As Per HPI, Weakness (left sided). absent: Headache - EENT Eyes: As Per HPI, Blurred Vision Nose/Mouth/Throat: absent: Facial Pain (facial numbness specifically "on zygomatic bone") - Cardiovascular Cardiovascular: As Per HPI, Chest Pain. absent: Dyspnea, Leg Edema, Palpitations - Respiratory Respiratory: As Per HPI. absent: Cough, Dyspnea - Gastrointestinal Gastrointestinal: As Per HPI. absent: Abdominal Pain, Constipation, Diarrhea, Nausea, Vomiting - Genitourinary Genitourinary: As Per HPI. absent: Change in Urinary Stream, Dysuria, Urinary Incontinence - Musculoskeletal Musculoskeletal: As Per HPI, Abnormal Gait, Muscle Weakness (LLE, LUE), Numbness, Tingling - Neurological Neurological: As Per HPI, Abnormal Gait, Abnormal Speech, Focal Weakness, Loss of Vision, Sensory Deficit, Weakness. absent: Dizziness, Headaches, Tremor - Endocrine Endocrine: As Per HPI. absent: Palpitations Past Patient History - Infectious Disease Hx of Infectious Diseases: None - Tetanus Immunizations Tetanus Immunization: Unknown - Past Medical History & Family History Past Medical History?: Yes - Past Social History Smoking Status: Current Some Days Smoker - CARDIAC Hx Hypercholesterolemia: Yes Hx Hypertension: Yes - PULMONARY Hx Asthma: Yes - NEUROLOGICAL Hx Migraine: Yes Hx Seizures: Yes Hx Transient Ischemic Attacks (TIA): Yes - HEENT Hx HEENT Problems: No Other/Comment: wears glasses - RENAL Hx Chronic Kidney Disease: No - ENDOCRINE/METABOLIC Hx Endocrine Disorders: Yes Hx Diabetes Mellitus Type 2: Yes - HEMATOLOGICAL/ONCOLOGICAL Hx Anemia: Yes Hx Human Immunodeficiency Virus (HIV): No Hx Sickle Cell Disease: Yes - INTEGUMENTARY Hx Dermatological Problems: No - MUSCULOSKELETAL/RHEUMATOLOGICAL Hx Arthritis: Yes - GASTROINTESTINAL Hx Gastrointestinal Disorders: No - GENITOURINARY/GYNECOLOGICAL Hx Sexually Transmitted Disorders: No - PSYCHIATRIC Hx Anxiety: Yes Hx Depression: Yes Hx Schizophrenia: Yes Hx Substance Use: Yes - SURGICAL HISTORY Hx Surgeries: Yes (L ovarian cyst) Other/Comment: cyst removed from left ovary - ANESTHESIA Hx Anesthesia: Yes Hx Anesthesia Reactions: Yes (states "couldn't breathe") Meds Allergies/Adverse Reactions: Allergies Allergy/AdvReac Type Severity Reaction Status Date / Time ketorolac tromethamine Allergy Mild SWELLING Verified 07/17/18 22:20 [From Toradol] naproxen [From Naprosyn] Allergy Mild URTICARIA Verified 07/17/18 22:20 polyethylene glycol 3350 Allergy Mild RASH Verified 07/17/18 22:20 [From Miralax] shellfish derived Allergy Mild ANAPHYLAXIS Verified 07/17/18 22:20 mushroom Allergy ANAPHYLAXIS Verified 07/17/18 22:20 ibuprofen [From Motrin] AdvReac Mild vomiting Verified 07/17/18 22:20 blood PORK AdvReac DIARRHEA Verified 07/17/18 22:20 [email or web address] Allergy Severe RASH Uncoded 07/17/18 22:20 - Medications Medications: Current Medications Acetaminophen (Tylenol 650 Mg Supp) 650 mg [place] Q6 PRN PRN Reason: Pain, moderate (4-7) Apixaban (Eliquis) 5 mg PO Q12 SIGIFREDO Gabapentin (Neurontin) 300 mg PO TID [facility] Last Admin: 10/15/18 10:35 Dose: 300 mg Hydromorphone HCl (Dilaudid) 0.5 mg IVP Q4H PRN PRN Reason: Pain, severe (8-10) Last Admin: 10/15/18 09:18 Dose: 0.5 mg Sodium Chloride (Sodium Chloride 0.9%) 1,000 mls @ 100 mls/hr IV .Q10H [facility] Last Admin: 10/15/18 05:21 Dose: 100 mls/hr Topiramate (Topamax) 150 mg PO BID [facility] Physical Exam - Constitutional Appears: No Acute Distress - Head Exam Head Exam: NORMAL INSPECTION - Eye Exam Eye Exam: EOMI, Normal appearance, PERRL - ENT Exam ENT Exam: Mucous Membranes Moist Additional comments: slight facial droop of right lip, tongue deviated to the right, uvula midline, normal speech, no slurring, able to eat without difficulty - Neck Exam Neck exam: Positive for: Full Rom - Respiratory Exam Respiratory Exam: NORMAL BREATHING PATTERN. absent: Rales, Rhonchi, Wheezes, Respiratory Distress - Cardiovascular Exam Cardiovascular Exam: REGULAR RHYTHM, +S1, +S2 - GI/Abdominal Exam GI & Abdominal Exam: Normal Bowel Sounds, Soft. absent: Distended, Tenderness - Extremities Exam Extremities exam: Positive for: pedal pulses present. Negative for: pedal edema, tenderness Additional comments: RUE/RLE: 5/5 strength, sensation intact, normal babinski, normal reflexes LUE/LLE: 4/5 strength, sensation intact, normal babinski, normal reflexes - Neurological Exam Neurological exam: Alert, Oriented x3, Reflexes Normal Additional comments: slight facial droop of right lip, tongue deviated to the right, uvula midline, normal speech, no slurring, able to eat without difficulty RUE/RLE: 5/5 strength, sensation intact, normal babinski, normal reflexes LUE/LLE: 4/5 strength, sensation intact, normal babinski, normal reflexes - Psychiatric Exam Psychiatric exam: Flat Affect - Skin Skin Exam: Dry, Warm Additional comments: multiple bruising noted, patient states she "uses/tries any vein she can when using IV drugs." Results - Vital Signs Recent Vital Signs: Last Vital Signs Temp 98 F 10/15/18 08:00 Pulse 69 10/15/18 10:00 Resp 15 10/15/18 10:00 BP 131/77 10/15/18 09:12 Pulse Ox 98 10/15/18 10:00 - Labs Result Diagrams: 10/15/18 05:49 10/15/18 05:49 Labs: Laboratory Results - last 24 hr 10/14/18 10/14/18 10/14/18 17:10 17:21 17:21 WBC 7.9 RBC 5.02 Hgb 13.8 Hct 41.2 MCV 82.2 D MCH 27.5 MCHC 33.4 RDW 14.7 H Plt Count 360 MPV 8.1 Neut % (Auto) 60.7 Lymph % (Auto) 26.9 [place] % (Auto) 9.4 Eos % (Auto) 1.9 Baso % (Auto) 1.1 Neut # (Auto) 4.8 Lymph # (Auto) 2.1 [place] # (Auto) 0.7 Eos # (Auto) 0.1 Baso # (Auto) 0.1 PT 11.5 INR 1.1 APTT 32 Sodium Potassium Chloride Carbon Dioxide Anion Gap BUN Creatinine Est GFR ( Amer) Est GFR (Non-Af Amer) POC Glucose (mg/dL) 110 Random Glucose Hemoglobin A1c Calcium Phosphorus Magnesium Total Bilirubin AST ALT Alkaline Phosphatase Total Creatine Kinase Troponin I Total Protein Albumin Globulin Albumin/Globulin Ratio Triglycerides Cholesterol LDL Cholesterol Direct HDL Cholesterol Urine HCG, Qual Urine Opiates Screen Urine Methadone Screen Ur Barbiturates Screen Ur Phencyclidine Scrn Ur Amphetamines Screen U Benzodiazepines Scrn U Oth Cocaine Metabols U Cannabinoids Screen Alcohol, Quantitative Blood Type Antibody Screen 10/14/18 10/14/18 10/14/18 17:21 17:21 17:21 WBC RBC Hgb Hct MCV MCH MCHC RDW Plt Count MPV Neut % (Auto) Lymph % (Auto) [place] % (Auto) Eos % (Auto) Baso % (Auto) Neut # (Auto) Lymph # (Auto) [place] # (Auto) Eos # (Auto) Baso # (Auto) PT INR APTT Sodium 140 Potassium 3.6 Chloride 103 Carbon Dioxide 25 Anion Gap 15 BUN 10 Creatinine 0.8 Est GFR ( Amer) > 60 Est GFR (Non-Af Amer) > 60 POC Glucose (mg/dL) Random Glucose 100 Hemoglobin A1c 4.9 Calcium 9.0 Phosphorus Magnesium Total Bilirubin 0.4 AST 18 ALT 16 Alkaline Phosphatase 61 Total Creatine Kinase Troponin I < 0.0120 Total Protein 7.6 Albumin 4.1 Globulin 3.5 Albumin/Globulin Ratio 1.2 Triglycerides 93 Cholesterol 161 LDL Cholesterol Direct 94 HDL Cholesterol 51 Urine HCG, Qual Urine Opiates Screen Urine Methadone Screen Ur Barbiturates Screen Ur Phencyclidine Scrn Ur Amphetamines Screen U Benzodiazepines Scrn U Oth Cocaine Metabols U Cannabinoids Screen Alcohol, Quantitative < 10 Blood Type AB POSITIVE Antibody Screen Negative 10/14/18 10/14/18 10/14/18 20:39 23:18 23:18 WBC RBC Hgb Hct MCV MCH MCHC RDW Plt Count MPV Neut % (Auto) Lymph % (Auto) [place] % (Auto) Eos % (Auto) Baso % (Auto) Neut # (Auto) Lymph # (Auto) [place] # (Auto) Eos # (Auto) Baso # (Auto) PT INR APTT Sodium Potassium Chloride Carbon Dioxide Anion Gap BUN Creatinine Est GFR ( Amer) Est GFR (Non-Af Amer) POC Glucose (mg/dL) 80 Random Glucose Hemoglobin A1c Calcium Phosphorus Magnesium Total Bilirubin AST ALT Alkaline Phosphatase Total Creatine Kinase Troponin I Total Protein Albumin Globulin Albumin/Globulin Ratio Triglycerides Cholesterol LDL Cholesterol Direct HDL Cholesterol Urine HCG, Qual Negative Urine Opiates Screen Negative Urine Methadone Screen Negative Ur Barbiturates Screen Negative Ur Phencyclidine Scrn Negative Ur Amphetamines Screen Positive H U Benzodiazepines Scrn Negative U Oth Cocaine Metabols Positive H U Cannabinoids Screen Negative Alcohol, Quantitative Blood Type Antibody Screen 10/15/18 10/15/18 10/15/18 05:49 05:49 07:55 WBC 9.0 RBC 5.09 Hgb 13.5 Hct 41.4 MCV 81.4 MCH 26.4 L MCHC 32.5 L RDW 14.7 H Plt Count 343 MPV 8.4 Neut % (Auto) 51.9 Lymph % (Auto) 34.1 [place] % (Auto) 8.8 Eos % (Auto) 3.8 Baso % (Auto) 1.4 Neut # (Auto) 4.7 Lymph # (Auto) 3.1 [place] # (Auto) 0.8 Eos # (Auto) 0.3 Baso # (Auto) 0.1 PT INR APTT Sodium 141 Potassium 3.5 L Chloride 106 Carbon Dioxide 24 Anion Gap 14 BUN 8 Creatinine 0.7 Est GFR ( Amer) > 60 Est GFR (Non-Af Amer) > 60 POC Glucose (mg/dL) Random Glucose 85 Hemoglobin A1c Calcium 8.5 L Phosphorus 4.0 Magnesium 2.2 Total Bilirubin 0.4 AST 13 L D ALT 20 Alkaline Phosphatase 55 Total Creatine Kinase 32 Troponin I < 0.0120 Total Protein 6.7 Albumin 3.5 Globulin 3.2 Albumin/Globulin Ratio 1.1 Triglycerides Cholesterol LDL Cholesterol Direct HDL Cholesterol Urine HCG, Qual Urine Opiates Screen Urine Methadone Screen Ur Barbiturates Screen Ur Phencyclidine Scrn Ur Amphetamines Screen U Benzodiazepines Scrn U Oth Cocaine Metabols U Cannabinoids Screen Alcohol, Quantitative Blood Type Antibody Screen Assessment & Plan - Assessment and Plan (Free Text) Plan: 28 year old female with an extensive past medical history of polysubstance abuse, seizures, stroke, protein C and S deficiency, sickle cell disease, HLD, CAD, DVT, who presents with chest pain and left upper and lower extremity weakness. Head CT and CTA were completed and negative for acute pathology. Patient was given tPA. Ordered brain MRI to r/o pathology which was also negative. Of note, patient had transient weakness during examination of the patient- while talking to the patient, the patient was able to move her left arm and use it to lift the blanket off of her; however, while performing the neuro examination, patient's arm was weak and she was unable to hold arm elevated for longer than 5 seconds. Lower and Upper Extremity weakness - r/o tia vs. stroke. vs. malingering? - Head CT: negative for acute intracranial pathology - Head CTA: unremarkable; negative for thrombus, occlusion, stenosis in internal, intracranial or vertebral arteries. - Brain MRI: unremarkable - Ordered hypercoaguable workup- follow up - Troponin x2 negative - Coags: PT 11.5, INR 1.1, PTT 32 - Lipid panel: TG 93, Chol 161, LDL 94, HDL 51 - UDS: + cocaine, + amphetamines - Swallow eval: passed - Psychiatry consult placed by ICU to evaluate for malingering - Home medications were restarted: Eliquis 5mg PO BID, Topamax 100mg PO BID - Crestor 5mg PO HS was started Case discussed with Dr. Garland Garcias, PGY2
--- NOTE | 2018-10-15 15:35 | MRI ---
Date of service: 10/15/2018 PROCEDURE: MRI BRAIN WITHOUT CONTRAST HISTORY: r/o cva COMPARISON: CT head without contrast from 10/14/2018 and MRI brain without contrast from 11/20/2017. TECHNIQUE: Multiplanar, multisequence MR images of the brain were obtained without intravenous contrast enhancement. FINDINGS: HEMORRHAGE: None DWI: No evidence of an acute or early subacute infarction. BRAIN PARENCHYMA: Ellison-white matter differentiation is preserved. There is no mass, mass effect or abnormal extra-axial fluid collection. There is no territorial infarction. The midline sagittal structures are normal. VENTRICLES: The ventricles are normal in size, shape and configuration. CRANIUM: There is normal bone marrow signal pattern. ORBITS: Grossly unremarkable. PARANASAL SINUSES/MASTOIDS: Predominantly clear. VASCULAR SYSTEM: There are normal signal voids in the larger intracranial arteries. OTHER FINDINGS: None. IMPRESSION: Unremarkable non contrast MRI of the brain.
--- NOTE | 2018-10-15 15:54 | CP.PCM.HP ---
Past Patient History - Infectious Disease Hx of Infectious Diseases: None - Tetanus Immunizations Tetanus Immunization: Unknown - Past Medical History & Family History Past Medical History?: Yes - Past Social History Smoking Status: Current Some Days Smoker - CARDIAC Hx Hypercholesterolemia: Yes Hx Hypertension: Yes - PULMONARY Hx Asthma: Yes - NEUROLOGICAL Hx Migraine: Yes Hx Seizures: Yes Hx Transient Ischemic Attacks (TIA): Yes - HEENT Hx HEENT Problems: No Other/Comment: wears glasses - RENAL Hx Chronic Kidney Disease: No - ENDOCRINE/METABOLIC Hx Diabetes Mellitus Type 2: Yes - HEMATOLOGICAL/ONCOLOGICAL Hx Anemia: Yes Hx Human Immunodeficiency Virus (HIV): No Hx Sickle Cell Disease: Yes - INTEGUMENTARY Hx Dermatological Problems: No - MUSCULOSKELETAL/RHEUMATOLOGICAL Hx Arthritis: Yes - GASTROINTESTINAL Hx Gastrointestinal Disorders: No - GENITOURINARY/GYNECOLOGICAL Hx Sexually Transmitted Disorders: No - PSYCHIATRIC Hx Anxiety: Yes Hx Depression: Yes Hx Schizophrenia: Yes Hx Substance Use: Yes - SURGICAL HISTORY Hx Surgeries: Yes (L ovarian cyst) Other/Comment: cyst removed from left ovary - ANESTHESIA Hx Anesthesia: Yes Hx Anesthesia Reactions: Yes (states "couldn't breathe") Meds Allergies/Adverse Reactions: Allergies Allergy/AdvReac Type Severity Reaction Status Date / Time ketorolac tromethamine Allergy Mild SWELLING Verified 07/17/18 22:20 [From Toradol] naproxen [From Naprosyn] Allergy Mild URTICARIA Verified 07/17/18 22:20 polyethylene glycol 3350 Allergy Mild RASH Verified 07/17/18 22:20 [From Miralax] shellfish derived Allergy Mild ANAPHYLAXIS Verified 07/17/18 22:20 mushroom Allergy ANAPHYLAXIS Verified 07/17/18 22:20 ibuprofen [From Motrin] AdvReac Mild vomiting Verified 07/17/18 22:20 blood PORK AdvReac DIARRHEA Verified 07/17/18 22:20 nguyen Allergy Severe RASH Uncoded 07/17/18 22:20 Physical Exam - Constitutional Appears: Well - Head Exam Head Exam: ATRAUMATIC, NORMAL INSPECTION, NORMOCEPHALIC - Eye Exam Eye Exam: EOMI, Normal appearance, PERRL Pupil Exam: NORMAL ACCOMODATION, PERRL - ENT Exam ENT Exam: Mucous Membranes Moist, Normal Exam - Neck Exam Neck exam: Positive for: Normal Inspection - Respiratory Exam Respiratory Exam: Decreased Breath Sounds - Cardiovascular Exam Cardiovascular Exam: REGULAR RHYTHM, +S1, +S2 - GI/Abdominal Exam GI & Abdominal Exam: Diminished Bowel Sounds, Soft - Rectal Exam Rectal Exam: Deferred Results - Vital Signs Recent Vital Signs: Last Vital Signs Temp 98 F 10/15/18 08:00 Pulse 61 10/15/18 14:00 Resp 18 10/15/18 14:00 BP 115/77 10/15/18 13:13 Pulse Ox 100 10/15/18 14:00 - Labs Result Diagrams: 10/15/18 05:49 10/15/18 05:49 Labs: Laboratory Results - last 24 hr 10/14/18 10/14/18 10/14/18 17:10 17:21 17:21 WBC 7.9 RBC 5.02 Hgb 13.8 Hct 41.2 MCV 82.2 D MCH 27.5 MCHC 33.4 RDW 14.7 H Plt Count 360 MPV 8.1 Neut % (Auto) 60.7 Lymph % (Auto) 26.9 [place] % (Auto) 9.4 Eos % (Auto) 1.9 Baso % (Auto) 1.1 Neut # (Auto) 4.8 Lymph # (Auto) 2.1 [place] # (Auto) 0.7 Eos # (Auto) 0.1 Baso # (Auto) 0.1 PT 11.5 INR 1.1 APTT 32 Sodium Potassium Chloride Carbon Dioxide Anion Gap BUN Creatinine Est GFR ( Amer) Est GFR (Non-Af Amer) POC Glucose (mg/dL) 110 Random Glucose Hemoglobin A1c Calcium Phosphorus Magnesium Total Bilirubin AST ALT Alkaline Phosphatase Total Creatine Kinase Troponin I Total Protein Albumin Globulin Albumin/Globulin Ratio Triglycerides Cholesterol LDL Cholesterol Direct HDL Cholesterol Urine HCG, Qual Urine Opiates Screen Urine Methadone Screen Ur Barbiturates Screen Ur Phencyclidine Scrn Ur Amphetamines Screen U Benzodiazepines Scrn U Oth Cocaine Metabols U Cannabinoids Screen Alcohol, Quantitative Blood Type Antibody Screen 10/14/18 10/14/18 10/14/18 17:21 17:21 17:21 WBC RBC Hgb Hct MCV MCH MCHC RDW Plt Count MPV Neut % (Auto) Lymph % (Auto) [place] % (Auto) Eos % (Auto) Baso % (Auto) Neut # (Auto) Lymph # (Auto) [place] # (Auto) Eos # (Auto) Baso # (Auto) PT INR APTT Sodium 140 Potassium 3.6 Chloride 103 Carbon Dioxide 25 Anion Gap 15 BUN 10 Creatinine 0.8 Est GFR ( Amer) > 60 Est GFR (Non-Af Amer) > 60 POC Glucose (mg/dL) Random Glucose 100 Hemoglobin A1c 4.9 Calcium 9.0 Phosphorus Magnesium Total Bilirubin 0.4 AST 18 ALT 16 Alkaline Phosphatase 61 Total Creatine Kinase Troponin I < 0.0120 Total Protein 7.6 Albumin 4.1 Globulin 3.5 Albumin/Globulin Ratio 1.2 Triglycerides 93 Cholesterol 161 LDL Cholesterol Direct 94 HDL Cholesterol 51 Urine HCG, Qual Urine Opiates Screen Urine Methadone Screen Ur Barbiturates Screen Ur Phencyclidine Scrn Ur Amphetamines Screen U Benzodiazepines Scrn U Oth Cocaine Metabols U Cannabinoids Screen Alcohol, Quantitative < 10 Blood Type AB POSITIVE Antibody Screen Negative 10/14/18 10/14/18 10/14/18 20:39 23:18 23:18 WBC RBC Hgb Hct MCV MCH MCHC RDW Plt Count MPV Neut % (Auto) Lymph % (Auto) [place] % (Auto) Eos % (Auto) Baso % (Auto) Neut # (Auto) Lymph # (Auto) [place] # (Auto) Eos # (Auto) Baso # (Auto) PT INR APTT Sodium Potassium Chloride Carbon Dioxide Anion Gap BUN Creatinine Est GFR ( Amer) Est GFR (Non-Af Amer) POC Glucose (mg/dL) 80 Random Glucose Hemoglobin A1c Calcium Phosphorus Magnesium Total Bilirubin AST ALT Alkaline Phosphatase Total Creatine Kinase Troponin I Total Protein Albumin Globulin Albumin/Globulin Ratio Triglycerides Cholesterol LDL Cholesterol Direct HDL Cholesterol Urine HCG, Qual Negative Urine Opiates Screen Negative Urine Methadone Screen Negative Ur Barbiturates Screen Negative Ur Phencyclidine Scrn Negative Ur Amphetamines Screen Positive H U Benzodiazepines Scrn Negative U Oth Cocaine Metabols Positive H U Cannabinoids Screen Negative Alcohol, Quantitative Blood Type Antibody Screen 10/15/18 10/15/18 10/15/18 05:49 05:49 07:55 WBC 9.0 RBC 5.09 Hgb 13.5 Hct 41.4 MCV 81.4 MCH 26.4 L MCHC 32.5 L RDW 14.7 H Plt Count 343 MPV 8.4 Neut % (Auto) 51.9 Lymph % (Auto) 34.1 [place] % (Auto) 8.8 Eos % (Auto) 3.8 Baso % (Auto) 1.4 Neut # (Auto) 4.7 Lymph # (Auto) 3.1 [place] # (Auto) 0.8 Eos # (Auto) 0.3 Baso # (Auto) 0.1 PT INR APTT Sodium 141 Potassium 3.5 L Chloride 106 Carbon Dioxide 24 Anion Gap 14 BUN 8 Creatinine 0.7 Est GFR ( Amer) > 60 Est GFR (Non-Af Amer) > 60 POC Glucose (mg/dL) Random Glucose 85 Hemoglobin A1c Calcium 8.5 L Phosphorus 4.0 Magnesium 2.2 Total Bilirubin 0.4 AST 13 L D ALT 20 Alkaline Phosphatase 55 Total Creatine Kinase 32 Troponin I < 0.0120 Total Protein 6.7 Albumin 3.5 Globulin 3.2 Albumin/Globulin Ratio 1.1 Triglycerides Cholesterol LDL Cholesterol Direct HDL Cholesterol Urine HCG, Qual Urine Opiates Screen Urine Methadone Screen Ur Barbiturates Screen Ur Phencyclidine Scrn Ur Amphetamines Screen U Benzodiazepines Scrn U Oth Cocaine Metabols U Cannabinoids Screen Alcohol, Quantitative Blood Type Antibody Screen
--- NOTE | 2018-10-15 20:46 | CARD ---
APPROVED REPORT Date of service: 10/15/2018 EXAM: Two-dimensional and M-mode echocardiogram with Doppler and color Doppler. Other Information Quality : GoodRhythm : INDICATION CVA/TIA Cardiac Disease: CAD RISK FACTORS Hypertension Hyperlipidemia Diabetes 2D DIMENSIONS IVSd0.9 (0.7-1.1cm)LVDd4.6 (3.9-5.9cm) PWd0.8 (0.7-1.1cm)LA [id number] (18-58mL) LVDs3.3 (2.5-4.0cm)FS (%) 27.1 % LVEF (%)52.9 (>50%)LVEF ([place]'s)61.25 % M-Mode DIMENSIONS Left Atrium (MM)3.68 (2.5-4.0cm)IVSd0.89 (0.7-1.1cm) Aortic Root2.50 (2.2-3.7cm)LVDd4.82 (4.0-5.6cm) Aortic Cusp Exc.2.07 (1.5-2.0cm)PWd0.72 (0.7-1.1cm) FS (%) 28 %LVDs3.47 (2.0-3.8cm) LVEF (%)54 (>50%) Mitral Valve MV E Jnrmhlxi03.1cm/sMV A Axymskuy80.3cm/sE/A ratio1.1 TDI Lateral E' Peak V18.87cm/sMedial E' Peak V12.42cm/sE/Lateral E'4.0 E/Medial E'6.1 Tricuspid Valve TR Peak Tbofjgal488wf/sTR Peak Gr.[id number] LEFT VENTRICLE The left ventricle is normal size. There is normal left ventricular wall thickness. Left ventricle systolic function is normal. The Ejection Fraction is 50-55%. There is normal LV segmental wall motion. The left ventricular diastolic function is normal. RIGHT VENTRICLE The right ventricle is normal size. There is normal right ventricular wall thickness. The right ventricular systolic function is normal. ATRIA The left atrium size is normal. The right atrium size is normal. The interatrial septum is intact with no evidence for an atrial septal defect. AORTIC VALVE The aortic valve is normal in structure. No aortic regurgitation is present. There is no aortic valvular stenosis. MITRAL VALVE The mitral valve is normal in structure. There is no evidence of mitral valve prolapse. There is no mitral valve stenosis. Mitral regurgitation is mild. TRICUSPID VALVE The tricuspid valve is normal in structure. There is mild tricuspid regurgitation. Right ventricular systolic pressure is estimated at less than 30 mmHg. There is no pulmonary hypertension. PULMONIC VALVE The pulmonic valve is not well visualized. There is no pulmonic valvular regurgitation. GREAT VESSELS The aortic root is normal in size. PERICARDIAL EFFUSION There is no significant pericardial effusion. <Conclusion> Left ventricle systolic function is normal. The Ejection Fraction is 50-55%. No aortic regurgitation is present. Mitral regurgitation is mild. There is mild tricuspid regurgitation. There is no pulmonary hypertension. There is no pulmonic valvular regurgitation.
--- NOTE | 2018-10-15 22:11 | CARD ---
APPROVED REPORT Date of service: 10/14/2018 EKG Measurement Heart [id number] <Conclusion> Sinus bradycardia with sinus arrhythmia Otherwise normal ECG
--- NOTE | 2018-10-15 22:11 | CARD ---
APPROVED REPORT Date of service: 10/14/2018 EKG Measurement Heart [id number] [place] [id number] [id number] <Conclusion> Sinus bradycardia Otherwise normal ECG
[2018-10-16] MEDS: HYDROmorphone 0.5 mg/0.5 ml ISec IVP PRN ×4 (02:04→21:35)
[2018-10-16 03:13] LABS: BARBITURATES, UR NEGATIVE (NEGATIVE); BENZODIAZEPINES, UR NEGATIVE (NEGATIVE); PHENCYCLIDINE, UR NEGATIVE (NEGATIVE)
[2018-10-16 03:36] LABS: OPIATES, UR POSITIVE (NEGATIVE)
[2018-10-16 06:34] LABS: BASO # 0.1 K/uL (0.0-0.2); EOS # 0.3 K/uL (0.0-0.7); EOS % 3.4 % (0.0-4.0); HEMOGLOBIN 13.3 g/dL (11.0-16.0); LYMPH % 24.5 % (20.0-40.0); MEAN CELL VOLUME 82.8 fL (81.0-99.0); MEAN CORPUSCULAR HEMOGLOBIN 27.8 pg (27.0-31.0); MEAN CORPUSCULAR HGB CONC 33.5 g/dL (33.0-37.0); MEAN PLATELET VOLUME 8.8 fL (7.2-11.7); MONO # 0.5 K/uL (0.0-0.8); MONO % 6.6 % (0.0-10.0); NEUT # 5.3 K/uL (1.8-7.0); NEUT % 64.5 % (50.0-75.0); NRBC % 0.1 % (0.0-2.0); RBC 4.81 Mil/uL (3.80-5.20); RED CELL DISTRIBUTION WIDTH 14.4 % (11.5-14.5); WHITE BLOOD COUNT 8.2 K/uL (4.8-10.8)
[2018-10-16 07:03] LABS: ALB/GLOB RATIO 1.2 (1.0-2.1); ALBUMIN 3.7 g/dL (3.5-5.0); ALT/SGPT 18 U/L (9-52); AST/SGOT 10 U/L (14-36); BLOOD UREA NITROGEN 8 mg/dL (7-17); CALCIUM 8.6 mg/dl (8.6-10.4); GFR NON-AFRICAN AMERICAN > 60
--- NOTE | 2018-10-16 07:19 | CP.CCUPN ---
<Humberto Vee - Last Filed: 10/16/18 12:02> CCU Subjective - Physician Review Subjective (Free Text): 10/15/18 08:00 Patient seen and examined at bedside. No acute events overnight. Patient is stable for transfer to [facility] floor. Critical Care Time Spent (in minutes): 35 CCU Objective - Vital Signs / Intake & Output Vital Signs (Last 4 hours): Vital Signs Temp Pulse Resp BP Pulse Ox 10/16/18 06:22 57 L 24 113/63 10/16/18 05:22 61 18 108/53 L 10/16/18 04:22 62 16 107/53 L 10/16/18 04:00 98.4 F 100 10/16/18 03:22 60 18 110/69 Intake and Output (Last 8hrs): Intake & Output 10/15/18 10/16/18 10/16/18 22:59 06:59 14:59 Intake Total 1300 100 Output Total 800 700 Balance 500 -600 Weight 75.296 kg Intake: Intake, IV Amount 600 100 Right Forearm 600 100 Oral 700 Output: Urine 800 700 Urine, Voided 800 700 - Physical Exam Head: Positive for: Atraumatic, Normocephalic Pupils: Positive for: PERRL Conjunctiva: Positive for: Normal Mouth: Positive for: Moist Mucous Membranes Neck: Positive for: Normal Range of Motion Respiratory/Chest: Positive for: Clear to Auscultation. Negative for: Re spiratory Distress, Accessory Muscle Use, Wheezes, Rales, Rhonchi Cardiovascular: Positive for: Regular Rate and Rhythm, Normal S1, S2. Negative for: Murmurs, Rub, Gallop Abdomen: Positive for: Normal Bowel Sounds. Negative for: Tenderness, Distention, Peritoneal Signs Upper Extremity: Positive for: Normal Inspection Lower Extremity: Positive for: Normal Inspection Neurological: Positive for: GCS=15, CN II-XII Intact, Speech Normal Skin: Positive for: Warm, Dry, Normal Color. Negative for: Rashes Psychiatric: Positive for: Alert, Oriented x 3, Lethargic - Medications Active Medications: Active Medications Generic Name Dose Route Start Last Admin Trade Name Freq PRN Reason Stop Dose Admin Acetaminophen 650 mg 10/14/18 19:37 Tylenol 650 Mg Supp MO Q6 PRN Pain, moderate (4-7) Apixaban 5 mg 10/15/18 22:00 10/15/18 22:25 Eliquis PO 5 mg Q12 SIGIFREDO Administration Gabapentin 300 mg 10/15/18 10:00 10/15/18 17:39 Neurontin PO 300 mg TID SIGIFREDO Administration Hydromorphone HCl 0.5 mg 10/15/18 09:15 10/16/18 02:04 Dilaudid IVP 0.5 mg Q4H PRN Administration Pain, severe (8-10) Influenza Virus Vaccine 60 mcg 10/16/18 10:00 Fluzone Quad [id number] IM 10/16/18 10:01 .ONCE ONE Rosuvastatin Calcium 5 mg 10/15/18 23:45 10/15/18 23:45 Crestor PO Not Given HS SIGIFREDO Topiramate 150 mg 10/15/18 18:00 10/15/18 17:45 Topamax PO 150 mg BID SIGIFREDO Administration - Patient Studies Lab Studies: Lab Studies 10/16/18 10/16/18 10/16/18 Range/Units 06:22 06:22 02:53 WBC 8.2 (4.8-10.8) K/uL RBC 4.81 (3.80-5.20) Mil/uL Hgb 13.3 (11.0-16.0) g/dL Hct 39.8 (34.0-47.0) % MCV 82.8 (81.0-99.0) fL MCH 27.8 (27.0-31.0) pg MCHC 33.5 (33.0-37.0) g/dL RDW 14.4 (11.5-14.5) % Plt Count 332 (130-400) K/uL MPV 8.8 (7.2-11.7) fL Neut % (Auto) 64.5 (50.0-75.0) % Lymph % (Auto) 24.5 (20.0-40.0) % [place] % (Auto) 6.6 (0.0-10.0) % Eos % (Auto) 3.4 (0.0-4.0) % Baso % (Auto) 1.0 (0.0-2.0) % Neut # (Auto) 5.3 (1.8-7.0) K/uL Lymph # (Auto) 2.0 (1.0-4.3) K/uL [place] # (Auto) 0.5 (0.0-0.8) K/uL Eos # (Auto) 0.3 (0.0-0.7) K/uL Baso # (Auto) 0.1 (0.0-0.2) K/uL Sodium 139 (132-148) mmol/L Potassium 3.7 (3.6-5.2) mmol/L Chloride 109 H (98-107) mmol/L Carbon Dioxide 21 L (22-30) mmol/L Anion Gap 13 (10-20) BUN 8 (7-17) mg/dL Creatinine 0.9 (0.7-1.2) mg/dL Est GFR ( Amer) > 60 Est GFR (Non-Af Amer) > 60 Random Glucose 92 (65-105) mg/dL Calcium 8.6 (8.6-10.4) mg/dl Phosphorus 3.5 (2.5-4.5) mg/dL Magnesium 2.2 (1.6-2.3) mg/dL Total Bilirubin 0.4 (0.2-1.3) mg/dL AST 10 L D (14-36) U/L ALT 18 (9-52) U/L Alkaline Phosphatase 72 (38-126) U/L Total Creatine Kinase (30-135) U/L Troponin I (0.00-0.120) ng/mL Total Protein 6.7 (6.3-8.3) g/dL Albumin 3.7 (3.5-5.0) g/dL Globulin 3.1 (2.2-3.9) gm/dL Albumin/Globulin Ratio 1.2 (1.0-2.1) Urine Opiates Screen Positive H (NEGATIVE) Urine Methadone Screen Negative (NEGATIVE) Ur Barbiturates Screen Negative (NEGATIVE) Ur Phencyclidine Scrn Negative (NEGATIVE) Ur Amphetamines Screen Negative (NEGATIVE) U Benzodiazepines Scrn Negative (NEGATIVE) U Oth Cocaine Metabols Negative (NEGATIVE) U Cannabinoids Screen Negative (NEGATIVE) 10/15/18 10/15/18 10/15/18 Range/Units 17:04 16:45 07:55 WBC (4.8-10.8) K/uL RBC (3.80-5.20) Mil/uL Hgb (11.0-16.0) g/dL Hct (34.0-47.0) % MCV (81.0-99.0) fL MCH (27.0-31.0) pg MCHC (33.0-37.0) g/dL RDW (11.5-14.5) % Plt Count (130-400) K/uL MPV (7.2-11.7) fL Neut % (Auto) (50.0-75.0) % Lymph % (Auto) (20.0-40.0) % [place] % (Auto) (0.0-10.0) % Eos % (Auto) (0.0-4.0) % Baso % (Auto) (0.0-2.0) % Neut # (Auto) (1.8-7.0) K/uL Lymph # (Auto) (1.0-4.3) K/uL [place] # (Auto) (0.0-0.8) K/uL Eos # (Auto) (0.0-0.7) K/uL Baso # (Auto) (0.0-0.2) K/uL Sodium (132-148) mmol/L Potassium (3.6-5.2) mmol/L Chloride (98-107) mmol/L Carbon Dioxide (22-30) mmol/L Anion Gap (10-20) BUN (7-17) mg/dL Creatinine (0.7-1.2) mg/dL Est GFR ( Amer) Est GFR (Non-Af Amer) Random Glucose (65-105) mg/dL Calcium (8.6-10.4) mg/dl Phosphorus (2.5-4.5) mg/dL Magnesium (1.6-2.3) mg/dL Total Bilirubin (0.2-1.3) mg/dL AST (14-36) U/L ALT (9-52) U/L Alkaline Phosphatase (38-126) U/L Total Creatine Kinase 28 L 32 (30-135) U/L Troponin I < 0.0120 < 0.0120 (0.00-0.120) ng/mL Total Protein (6.3-8.3) g/dL Albumin (3.5-5.0) g/dL Globulin (2.2-3.9) gm/dL Albumin/Globulin Ratio (1.0-2.1) Urine Opiates Screen (NEGATIVE) Urine Methadone Screen (NEGATIVE) Ur Barbiturates Screen (NEGATIVE) Ur Phencyclidine Scrn (NEGATIVE) Ur Amphetamines Screen (NEGATIVE) U Benzodiazepines Scrn (NEGATIVE) U Oth Cocaine Metabols (NEGATIVE) U Cannabinoids Screen (NEGATIVE) 10/15/18 Range/Units 05:49 WBC (4.8-10.8) K/uL RBC (3.80-5.20) Mil/uL Hgb (11.0-16.0) g/dL Hct (34.0-47.0) % MCV (81.0-99.0) fL MCH (27.0-31.0) pg MCHC (33.0-37.0) g/dL RDW (11.5-14.5) % Plt Count (130-400) K/uL MPV (7.2-11.7) fL Neut % (Auto) (50.0-75.0) % Lymph % (Auto) (20.0-40.0) % [place] % (Auto) (0.0-10.0) % Eos % (Auto) (0.0-4.0) % Baso % (Auto) (0.0-2.0) % Neut # (Auto) (1.8-7.0) K/uL Lymph # (Auto) (1.0-4.3) K/uL [place] # (Auto) (0.0-0.8) K/uL Eos # (Auto) (0.0-0.7) K/uL Baso # (Auto) (0.0-0.2) K/uL Sodium 141 (132-148) mmol/L Potassium 3.5 L (3.6-5.2) mmol/L Chloride 106 (98-107) mmol/L Carbon Dioxide 24 (22-30) mmol/L Anion Gap 14 (10-20) BUN 8 (7-17) mg/dL Creatinine 0.7 (0.7-1.2) mg/dL Est GFR ( Amer) > 60 Est GFR (Non-Af Amer) > 60 Random Glucose 85 (65-105) mg/dL Calcium 8.5 L (8.6-10.4) mg/dl Phosphorus 4.0 (2.5-4.5) mg/dL Magnesium 2.2 (1.6-2.3) mg/dL Total Bilirubin 0.4 (0.2-1.3) mg/dL AST 13 L D (14-36) U/L ALT 20 (9-52) U/L Alkaline Phosphatase 55 (38-126) U/L Total Creatine Kinase (30-135) U/L Troponin I (0.00-0.120) ng/mL Total Protein 6.7 (6.3-8.3) g/dL Albumin 3.5 (3.5-5.0) g/dL Globulin 3.2 (2.2-3.9) gm/dL Albumin/Globulin Ratio 1.1 (1.0-2.1) Urine Opiates Screen (NEGATIVE) Urine Methadone Screen (NEGATIVE) Ur Barbiturates Screen (NEGATIVE) Ur Phencyclidine Scrn (NEGATIVE) Ur Amphetamines Screen (NEGATIVE) U Benzodiazepines Scrn (NEGATIVE) U Oth Cocaine Metabols (NEGATIVE) U Cannabinoids Screen (NEGATIVE) Laboratory Results - last 24 hr 10/15/18 10/15/18 10/15/18 05:49 07:55 16:45 WBC RBC Hgb Hct MCV MCH MCHC RDW Plt Count MPV Neut % (Auto) Lymph % (Auto) [place] % (Auto) Eos % (Auto) Baso % (Auto) Neut # (Auto) Lymph # (Auto) [place] # (Auto) Eos # (Auto) Baso # (Auto) Sodium 141 Potassium 3.5 L Chloride 106 Carbon Dioxide 24 Anion Gap 14 BUN 8 Creatinine 0.7 Est GFR ( Amer) > 60 Est GFR (Non-Af Amer) > 60 Random Glucose 85 Calcium 8.5 L Phosphorus 4.0 Magnesium 2.2 Total Bilirubin 0.4 AST 13 L D ALT 20 Alkaline Phosphatase 55 Total Creatine Kinase 32 Troponin I < 0.0120 < 0.0120 Total Protein 6.7 Albumin 3.5 Globulin 3.2 Albumin/Globulin Ratio 1.1 Urine Opiates Screen Urine Methadone Screen Ur Barbiturates Screen Ur Phencyclidine Scrn Ur Amphetamines Screen U Benzodiazepines Scrn U Oth Cocaine Metabols U Cannabinoids Screen 10/15/18 10/16/18 10/16/18 17:04 02:53 06:22 WBC 8.2 RBC 4.81 Hgb 13.3 Hct 39.8 MCV 82.8 MCH 27.8 MCHC 33.5 RDW 14.4 Plt Count 332 MPV 8.8 Neut % (Auto) 64.5 Lymph % (Auto) 24.5 [place] % (Auto) 6.6 Eos % (Auto) 3.4 Baso % (Auto) 1.0 Neut # (Auto) 5.3 Lymph # (Auto) 2.0 [place] # (Auto) 0.5 Eos # (Auto) 0.3 Baso # (Auto) 0.1 Sodium Potassium Chloride Carbon Dioxide Anion Gap BUN Creatinine Est GFR ( Amer) Est GFR (Non-Af Amer) Random Glucose Calcium Phosphorus Magnesium Total Bilirubin AST ALT Alkaline Phosphatase Total Creatine Kinase 28 L Troponin I Total Protein Albumin Globulin Albumin/Globulin Ratio Urine Opiates Screen Positive H Urine Methadone Screen Negative Ur Barbiturates Screen Negative Ur Phencyclidine Scrn Negative Ur Amphetamines Screen Negative U Benzodiazepines Scrn Negative U Oth Cocaine Metabols Negative U Cannabinoids Screen Negative 10/16/18 06:22 WBC RBC Hgb Hct MCV MCH MCHC RDW Plt Count MPV Neut % (Auto) Lymph % (Auto) [place] % (Auto) Eos % (Auto) Baso % (Auto) Neut # (Auto) Lymph # (Auto) [place] # (Auto) Eos # (Auto) Baso # (Auto) Sodium 139 Potassium 3.7 Chloride 109 H Carbon Dioxide 21 L Anion Gap 13 BUN 8 Creatinine 0.9 Est GFR ( Amer) > 60 Est GFR (Non-Af Amer) > 60 Random Glucose 92 Calcium 8.6 Phosphorus 3.5 Magnesium 2.2 Total Bilirubin 0.4 AST 10 L D ALT 18 Alkaline Phosphatase 72 Total Creatine Kinase Troponin I Total Protein 6.7 Albumin 3.7 Globulin 3.1 Albumin/Globulin Ratio 1.2 Urine Opiates Screen Urine Methadone Screen Ur Barbiturates Screen Ur Phencyclidine Scrn Ur Amphetamines Screen U Benzodiazepines Scrn U Oth Cocaine Metabols U Cannabinoids Screen Fingerstick Blood Sugar Results: 110 Critical Care Progress Note - Nutrition Nutrition: Nutrition Category Date Time Status Heart Healthy Diet [DIET] Diets 10/15/18 Lunch Active Assessment/Plan - Assessment and Plan (Free Text) Assessment: Patient is a 28 year old female with PMHx of CAD, [place], Protein C&S def., Sickle Cell Dz, DVT, HLD, Arthritis, Anemia, Depression, Migraines, Schizophrenia, and IVDA presenting with chest pain and left sided weakness. Pt was a code stroke in ED and after negative CT was given TPA. Plan: Neuro: Acute CVA - CT head: No evidence of endoluminal thrombus,occlusion or definite significant stenosis in the intracranial arteries. No evidence of hemodynamically significant stenosis in the internal carotid arteries. - Head/neck CTA: No evidence of endoluminal thrombus,occlusion or definite significant stenosis in the intracranial arteries. No evidence of hemodynamically significant stenosis in the internal carotid arteries. Patent bilateral vertebral arteries. - TPA administered in ED - Eliquis 5mg PO Q12 - Neurology consulted, Dr. Post - Neurochecks Q4 - Passed speech and swallow evaluation - PT/OT - Brain MRI: negative Hx of migraine headaches - Topiramate 150mg PO BID Cardiovascular: Sinus bradycardia - EKG: Sinus bradycardia at 56 - Echo: f/u Pulm: - CXR: no active disease - No acute issues GI: - No acute issues Renal: - No acute issues Heme: Protein C and S deficiency - Eliquis 5mg PO Q12 Musculoskeletal: Chronic back pain - Gabapentin 300 TID - Dilaudid 0.5mg IV Q4 PRN ID: - No acute issues Prophylaxis: - SCD's - VTE contrainidacted - CVA Case discussed with Dr. Maikel Vee, PGY-1 <Cara Meza - Last Filed: 10/16/18 13:58> CCU Objective - Vital Signs / Intake & Output Vital Signs (Last 4 hours): Vital Signs Pulse Resp BP Pulse Ox 10/16/18 10:42 87 14 108/65 100 10/16/18 10:22 78 15 110/66 Intake and Output (Last 8hrs): Intake & Output 10/15/18 10/16/18 10/16/18 22:59 06:59 14:59 Intake Total 1300 100 480 Output Total 800 700 600 Balance 500 -600 -120 Weight 166 lb Intake: Intake, IV Amount 600 100 Right Forearm 600 100 Oral 700 480 Output: Urine 800 700 600 Urine, Voided 800 700 600 Other: # Voids Urine, Voided 1 - Medications Active Medications: Active Medications Generic Name Dose Route Start Last Admin Trade Name Freq PRN Reason Stop Dose Admin Acetaminophen 650 mg 10/16/18 11:50 Tylenol 325mg Tab PO Q6 PRN Pain, Mild (1-3) Apixaban 5 mg 10/15/18 22:00 10/16/18 10:28 Eliquis PO 5 mg Q12 SIGIFREDO Administration Gabapentin 300 mg 10/15/18 10:00 10/16/18 10:28 Neurontin PO 300 mg TID SIGIFREDO Administration Hydromorphone HCl 0.5 mg 10/15/18 09:15 10/16/18 12:39 Dilaudid IVP 0.5 mg Q4H PRN Administration Pain, severe (8-10) Rosuvastatin Calcium 5 mg 10/15/18 23:45 10/15/18 23:45 Crestor PO Not Given HS SIGIFREDO Topiramate 150 mg 10/15/18 18:00 10/16/18 10:28 Topamax PO 150 mg BID SIGIFREDO Administration - Patient Studies Lab Studies: Microbiology Studies 10/15/18 01:37 MRSA Culture (Admit) - Final Nose MRSA NOT DETECTED Lab Studies 10/16/18 10/16/18 10/16/18 Range/Units 11:49 10:59 10:58 WBC (4.8-10.8) K/uL RBC (3.80-5.20) Mil/uL Hgb (11.0-16.0) g/dL Hct (34.0-47.0) % MCV (81.0-99.0) fL MCH (27.0-31.0) pg MCHC (33.0-37.0) g/dL RDW (11.5-14.5) % Plt Count (130-400) K/uL MPV (7.2-11.7) fL Neut % (Auto) (50.0-75.0) % Lymph % (Auto) (20.0-40.0) % [place] % (Auto) (0.0-10.0) % Eos % (Auto) (0.0-4.0) % Baso % (Auto) (0.0-2.0) % Neut # (Auto) (1.8-7.0) K/uL Lymph # (Auto) (1.0-4.3) K/uL [place] # (Auto) (0.0-0.8) K/uL Eos # (Auto) (0.0-0.7) K/uL Baso # (Auto) (0.0-0.2) K/uL Sodium (132-148) mmol/L Potassium (3.6-5.2) mmol/L Chloride (98-107) mmol/L Carbon Dioxide (22-30) mmol/L Anion Gap (10-20) BUN (7-17) mg/dL Creatinine (0.7-1.2) mg/dL Est GFR ( Amer) Est GFR (Non-Af Amer) POC Glucose (mg/dL) 159 H 71 68 (65-110) mg/dL Random Glucose (65-105) mg/dL Calcium (8.6-10.4) mg/dl Phosphorus (2.5-4.5) mg/dL Magnesium (1.6-2.3) mg/dL Total Bilirubin (0.2-1.3) mg/dL AST (14-36) U/L ALT (9-52) U/L Alkaline Phosphatase (38-126) U/L Total Creatine Kinase (30-135) U/L Troponin I (0.00-0.120) ng/mL Total Protein (6.3-8.3) g/dL Albumin (3.5-5.0) g/dL Globulin (2.2-3.9) gm/dL Albumin/Globulin Ratio (1.0-2.1) Urine Opiates Screen (NEGATIVE) Urine Methadone Screen (NEGATIVE) Ur Barbiturates Screen (NEGATIVE) Ur Phencyclidine Scrn (NEGATIVE) Ur Amphetamines Screen (NEGATIVE) U Benzodiazepines Scrn (NEGATIVE) U Oth Cocaine Metabols (NEGATIVE) U Cannabinoids Screen (NEGATIVE) 10/16/18 10/16/18 10/16/18 Range/Units 06:22 06:22 02:53 WBC 8.2 (4.8-10.8) K/uL RBC 4.81 (3.80-5.20) Mil/uL Hgb 13.3 (11.0-16.0) g/dL Hct 39.8 (34.0-47.0) % MCV 82.8 (81.0-99.0) fL MCH 27.8 (27.0-31.0) pg MCHC 33.5 (33.0-37.0) g/dL RDW 14.4 (11.5-14.5) % Plt Count 332 (130-400) K/uL MPV 8.8 (7.2-11.7) fL Neut % (Auto) 64.5 (50.0-75.0) % Lymph % (Auto) 24.5 (20.0-40.0) % [place] % (Auto) 6.6 (0.0-10.0) % Eos % (Auto) 3.4 (0.0-4.0) % Baso % (Auto) 1.0 (0.0-2.0) % Neut # (Auto) 5.3 (1.8-7.0) K/uL Lymph # (Auto) 2.0 (1.0-4.3) K/uL [place] # (Auto) 0.5 (0.0-0.8) K/uL Eos # (Auto) 0.3 (0.0-0.7) K/uL Baso # (Auto) 0.1 (0.0-0.2) K/uL Sodium 139 (132-148) mmol/L Potassium 3.7 (3.6-5.2) mmol/L Chloride 109 H (98-107) mmol/L Carbon Dioxide 21 L (22-30) mmol/L Anion Gap 13 (10-20) BUN 8 (7-17) mg/dL Creatinine 0.9 (0.7-1.2) mg/dL Est GFR ( Amer) > 60 Est GFR (Non-Af Amer) > 60 POC Glucose (mg/dL) (65-110) mg/dL Random Glucose 92 (65-105) mg/dL Calcium 8.6 (8.6-10.4) mg/dl Phosphorus 3.5 (2.5-4.5) mg/dL Magnesium 2.2 (1.6-2.3) mg/dL Total Bilirubin 0.4 (0.2-1.3) mg/dL AST 10 L D (14-36) U/L ALT 18 (9-52) U/L Alkaline Phosphatase 72 (38-126) U/L Total Creatine Kinase (30-135) U/L Troponin I (0.00-0.120) ng/mL Total Protein 6.7 (6.3-8.3) g/dL Albumin 3.7 (3.5-5.0) g/dL Globulin 3.1 (2.2-3.9) gm/dL Albumin/Globulin Ratio 1.2 (1.0-2.1) Urine Opiates Screen Positive H (NEGATIVE) Urine Methadone Screen Negative (NEGATIVE) Ur Barbiturates Screen Negative (NEGATIVE) Ur Phencyclidine Scrn Negative (NEGATIVE) Ur Amphetamines Screen Negative (NEGATIVE) U Benzodiazepines Scrn Negative (NEGATIVE) U Oth Cocaine Metabols Negative (NEGATIVE) U Cannabinoids Screen Negative (NEGATIVE) 10/15/18 10/15/18 Range/Units 17:04 16:45 WBC (4.8-10.8) K/uL RBC (3.80-5.20) Mil/uL Hgb (11.0-16.0) g/dL Hct (34.0-47.0) % MCV (81.0-99.0) fL MCH (27.0-31.0) pg MCHC (33.0-37.0) g/dL RDW (11.5-14.5) % Plt Count (130-400) K/uL MPV (7.2-11.7) fL Neut % (Auto) (50.0-75.0) % Lymph % (Auto) (20.0-40.0) % [place] % (Auto) (0.0-10.0) % Eos % (Auto) (0.0-4.0) % Baso % (Auto) (0.0-2.0) % Neut # (Auto) (1.8-7.0) K/uL Lymph # (Auto) (1.0-4.3) K/uL [place] # (Auto) (0.0-0.8) K/uL Eos # (Auto) (0.0-0.7) K/uL Baso # (Auto) (0.0-0.2) K/uL Sodium (132-148) mmol/L Potassium (3.6-5.2) mmol/L Chloride (98-107) mmol/L Carbon Dioxide (22-30) mmol/L Anion Gap (10-20) BUN (7-17) mg/dL Creatinine (0.7-1.2) mg/dL Est GFR ( Amer) Est GFR (Non-Af Amer) POC Glucose (mg/dL) (65-110) mg/dL Random Glucose (65-105) mg/dL Calcium (8.6-10.4) mg/dl Phosphorus (2.5-4.5) mg/dL Magnesium (1.6-2.3) mg/dL Total Bilirubin (0.2-1.3) mg/dL AST (14-36) U/L ALT (9-52) U/L Alkaline Phosphatase (38-126) U/L Total Creatine Kinase 28 L (30-135) U/L Troponin I < 0.0120 (0.00-0.120) ng/mL Total Protein (6.3-8.3) g/dL Albumin (3.5-5.0) g/dL Globulin (2.2-3.9) gm/dL Albumin/Globulin Ratio (1.0-2.1) Urine Opiates Screen (NEGATIVE) Urine Methadone Screen (NEGATIVE) Ur Barbiturates Screen (NEGATIVE) Ur Phencyclidine Scrn (NEGATIVE) Ur Amphetamines Screen (NEGATIVE) U Benzodiazepines Scrn (NEGATIVE) U Oth Cocaine Metabols (NEGATIVE) U Cannabinoids Screen (NEGATIVE) Laboratory Results - last 24 hr 10/15/18 10/15/18 10/16/18 16:45 17:04 02:53 WBC RBC Hgb Hct MCV MCH MCHC RDW Plt Count MPV Neut % (Auto) Lymph % (Auto) [place] % (Auto) Eos % (Auto) Baso % (Auto) Neut # (Auto) Lymph # (Auto) [place] # (Auto) Eos # (Auto) Baso # (Auto) Sodium Potassium Chloride Carbon Dioxide Anion Gap BUN Creatinine Est GFR ( Amer) Est GFR (Non-Af Amer) POC Glucose (mg/dL) Random Glucose Calcium Phosphorus Magnesium Total Bilirubin AST ALT Alkaline Phosphatase Total Creatine Kinase 28 L Troponin I < 0.0120 Total Protein Albumin Globulin Albumin/Globulin Ratio Urine Opiates Screen Positive H Urine Methadone Screen Negative Ur Barbiturates Screen Negative Ur Phencyclidine Scrn Negative Ur Amphetamines Screen Negative U Benzodiazepines Scrn Negative U Oth Cocaine Metabols Negative U Cannabinoids Screen Negative 10/16/18 10/16/18 10/16/18 06:22 06:22 10:58 WBC 8.2 RBC 4.81 Hgb 13.3 Hct 39.8 MCV 82.8 MCH 27.8 MCHC 33.5 RDW 14.4 Plt Count 332 MPV 8.8 Neut % (Auto) 64.5 Lymph % (Auto) 24.5 [place] % (Auto) 6.6 Eos % (Auto) 3.4 Baso % (Auto) 1.0 Neut # (Auto) 5.3 Lymph # (Auto) 2.0 [place] # (Auto) 0.5 Eos # (Auto) 0.3 Baso # (Auto) 0.1 Sodium 139 Potassium 3.7 Chloride 109 H Carbon Dioxide 21 L Anion Gap 13 BUN 8 Creatinine 0.9 Est GFR ( Amer) > 60 Est GFR (Non-Af Amer) > 60 POC Glucose (mg/dL) 68 Random Glucose 92 Calcium 8.6 Phosphorus 3.5 Magnesium 2.2 Total Bilirubin 0.4 AST 10 L D ALT 18 Alkaline Phosphatase 72 Total Creatine Kinase Troponin I Total Protein 6.7 Albumin 3.7 Globulin 3.1 Albumin/Globulin Ratio 1.2 Urine Opiates Screen Urine Methadone Screen Ur Barbiturates Screen Ur Phencyclidine Scrn Ur Amphetamines Screen U Benzodiazepines Scrn U Oth Cocaine Metabols U Cannabinoids Screen 10/16/18 10/16/18 10:59 11:49 WBC RBC Hgb Hct MCV MCH MCHC RDW Plt Count MPV Neut % (Auto) Lymph % (Auto) [place] % (Auto) Eos % (Auto) Baso % (Auto) Neut # (Auto) Lymph # (Auto) [place] # (Auto) Eos # (Auto) Baso # (Auto) Sodium Potassium Chloride Carbon Dioxide Anion Gap BUN Creatinine Est GFR ( Amer) Est GFR (Non-Af Amer) POC Glucose (mg/dL) 71 159 H Random Glucose Calcium Phosphorus Magnesium Total Bilirubin AST ALT Alkaline Phosphatase Total Creatine Kinase Troponin I Total Protein Albumin Globulin Albumin/Globulin Ratio Urine Opiates Screen Urine Methadone Screen Ur Barbiturates Screen Ur Phencyclidine Scrn Ur Amphetamines Screen U Benzodiazepines Scrn U Oth Cocaine Metabols U Cannabinoids Screen Critical Care Progress Note - Nutrition Nutrition: Nutrition Category Date Time Status Heart Healthy Diet [DIET] Diets 10/15/18 Lunch Active Assessment/Plan - Assessment and Plan (Free Text) Plan: Patient seen and examined at bedside. multiple times. Patient is able to move all extremities when not being examined by a physician; but had unusual neurological deficit which has no pathological correlation-ship. Patient has malingering. -Pseudostroke to obtain opoids from medical system -neurology team advised input as patient has "CVA", but objective imaging reveals no evidence of CVA on MRI/CT brain or CT angio. -patient will benefit from oral NOAC -Patient remains hemodynamically stable. 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 - Date & Time Date: 10/16/18 Time: 13:58
[2018-10-16] MEDS ORDERED: Influenza Vaccine 60 MCG/0.5 ML SYR (3 yr & up) IM ONE (10:00)
[2018-10-16] MEDS ORDERED: Dextrose 50% SYRINGE Inj (50 ml) IV ONE (11:03)
--- NOTE | 2018-10-16 11:04 | PCM.PSYCH ---
Initial Psychiatric Evaluation - Initial Psychiatric Evaluation Type of Admission: Voluntary Legal Status: Capacity Chief Complaint (in patient's own words): i had chest pain.' History of Present Illness and Precipitating Events: Patient is a 28 year old female who is currently in a relationship, lives with her mom, unemployed, w/PMhx of polysubstance abuse,seizures, stroke, and protein C and S deficiency, sickle cell disease, HLD,CAD, DVT came to the hospital for chest pain and left sided weakness. She states that she has been hospitalized multiple times in the past before for similar symptoms. She states that she struggles with drug abuse. She currently abuses methamphetamine, crack cocaine, and heroin. She has been using crack cocaine for 10 years, and methamphetamine and heroin for a couple of months. She last abused crack cocaine and heroin 3 days ago. She uses heroin through injection or through sniffing. She states that she only gets auditory and visual hallucinations when she is abusing drugs. When she's not abusing drugs, she gets diarrhea. She denies abusing alcohol. She states that she's been smoking a pack of cigarettes a day for 15 years. She denies marijuana use. When she doesn't use drugs she gets diarrhea. She denies feeling depressed or wanting to hurt herself or others. She has tried to kill herself in the past by slicing her wrists. She often gets episodes of high energy. She denies having racing thoughts. She's seen a therapist several years ago but states that it didn't help her. Past Psych History: Schizophrenia, Bipolar Disorder, Depression Past Family Psych History: Father abuses alcohol. Multiple family members have schizophrenia and bipolar disorder. (she didn't state who exactly) Past Medical History: Sickle Cell Anemia. Episodes of low blood sugar. Medications: Topamax, Eliquis, Gabapentin, Remeron, Atarax Assessment: Opioid Use Disorder. Cocaine Use Disorder Current Medications: Active Medications Generic Name Dose Route Start Last Admin Trade Name Freq PRN Reason Stop Dose Admin Acetaminophen 650 mg 10/14/18 19:37 Tylenol 650 Mg Supp HI Q6 PRN Pain, moderate (4-7) Apixaban 5 mg 10/15/18 22:00 10/16/18 10:28 Eliquis PO 5 mg Q12 SIGIFREDO Administration Gabapentin 300 mg 10/15/18 10:00 10/16/18 10:28 Neurontin PO 300 mg TID SIGIFREDO Administration Hydromorphone HCl 0.5 mg 10/15/18 09:15 10/16/18 08:22 Dilaudid IVP 0.5 mg Q4H PRN Administration Pain, severe (8-10) Rosuvastatin Calcium 5 mg 10/15/18 23:45 10/15/18 23:45 Crestor PO Not Given HS SIGIFREDO Topiramate 150 mg 10/15/18 18:00 10/16/18 10:28 Topamax PO 150 mg BID SIGIFREDO Administration Past Psychiatric History - Past Psychiatric History Previous Treatment History: Inpatient Pertinent Medical Hx (Current Medical&Sleep Prob, Allergies): Allergies Allergy/AdvReac Type Severity Reaction Status Date / Time ketorolac tromethamine Allergy Mild SWELLING Verified 07/17/18 22:20 [From Toradol] naproxen [From Naprosyn] Allergy Mild URTICARIA Verified 07/17/18 22:20 polyethylene glycol 3350 Allergy Mild RASH Verified 07/17/18 22:20 [From Miralax] shellfish derived Allergy Mild ANAPHYLAXIS Verified 07/17/18 22:20 mushroom Allergy ANAPHYLAXIS Verified 07/17/18 22:20 ibuprofen [From Motrin] AdvReac Mild vomiting Verified 07/17/18 22:20 blood PORK AdvReac DIARRHEA Verified 07/17/18 22:20 nguyen Allergy Severe RASH Uncoded 07/17/18 22:20 Apixaban [Eliquis] 5 mg PO BID #0 tab 04/16/16 Atorvastatin [Lipitor] 10 mg PO HS 11/08/16 Gabapentin [Neurontin] 300 mg PO BID 11/08/16 Topiramate [Topamax] 100 mg PO BID 06/10/17 Naloxone HCl [Narcan] 4 mg NS PRN PRN #2 spray 10/08/18 Aspirin [Adult Aspirin] 81 mg PO DAILY 10/14/18 Review of Systems - Review of Systems All systems: reviewed and no additional remarkable complaints except - Psychiatric Psychiatric: Anxiety, Irritability. absent: Suicidal Ideation Mental Status Examination - Personal Presentation Personal Presentation: Looks stated age - Affect Affect: Constricted - Motor Activity Motor Activity: Calm - Reliability in Providing Information Reliability in Providing Information: Fair - Speech Speech: Organized - Mood Mood: Anxious - Formal Thought Process Formal Thought Process: No Impairment - Cognitive Functions Orientation: Person, Place, Situation, Time Sensorium: Alert Attention/Concentration: Attentive Abstract Thinking: Perry Estimate of Intelligence: Below average Judgement: Imparied, as evidence by: Poor judgement, Imparied, as evidence by: Lack of insight into illness - Risk Risk: Withdrawal, Diminished functioning - Limitations Limitations: Living alone DSM 5 DX - DSM 5 DSM 5 Diagnosis: Cocaine use disorder severe Opioid use disorder severe Bipolar disorder moderate - Recommended/Plan of Treatment Treatment Recommendations and Plan of Treatment: Cocaine use disorder severe Opioid use disorder severe Bipolar disorder moderate Supportive therapy Individual therapy Psych evaluation Patient will resume her medications Patient psychiatrically stable and cleared for discharge - Smoking Cessation Smoking Cessation Initiated: No
--- NOTE | 2018-10-16 11:13 | CP.CCUPN ---
<DannaAlphonsobatooljoselyn - Last Filed: 10/16/18 11:30> CCU Subjective - Physician Review Subjective (Free Text): 10/16/18 11:12 Maria Del Rosario Clay PGY1 Progress Note for Dr. Sreedhar Meza Pt was examined this morning for complaints of boyfriend that patient "looked like she was dying". Pt eyes were closed was unresponsive to verbal commands. She was had her upper extremities in flexion, with resistance to extension. Pt resisted repositioning from laying on her R side to laying on her back. Upon uncovering blanket to examine legs, pt instantly opened eyes and asked what was going on. Upon awaking, pt had no complaints. CCU Objective - Vital Signs / Intake & Output Vital Signs (Last 4 hours): Vital Signs Temp Pulse Resp BP Pulse Ox 10/16/18 10:42 87 14 108/65 100 10/16/18 10:22 78 15 110/66 10/16/18 09:22 68 15 103/62 100 10/16/18 08:22 79 15 109/82 97 10/16/18 08:00 98.4 F 97 Intake and Output (Last 8hrs): Intake & Output 10/15/18 10/16/18 10/16/18 22:59 06:59 14:59 Intake Total 1300 100 480 Output Total 800 700 600 Balance 500 -600 -120 Weight 166 lb Intake: Intake, IV Amount 600 100 Right Forearm 600 100 Oral 700 480 Output: Urine 800 700 600 Urine, Voided 800 700 600 Other: # Voids Urine, Voided 1 - Physical Exam Head: Positive for: Atraumatic, Normocephalic Pupils: Positive for: PERRL Conjunctiva: Positive for: Normal Mouth: Positive for: Moist Mucous Membranes Neck: Positive for: Normal Range of Motion Respiratory/Chest: Positive for: Clear to Auscultation. Negative for: Respiratory Distress, Accessory Muscle Use, Wheezes, Rales, Rhonchi Cardiovascular: Positive for: Regular Rate and Rhythm, Normal S1, S2. Negative for: Murmurs, Rub, Gallop Abdomen: Positive for: Normal Bowel Sounds. Negative for: Tenderness, Distention, Peritoneal Signs Upper Extremity: Positive for: Normal Inspection Lower Extremity: Positive for: Normal Inspection Neurological: Positive for: GCS=15, CN II-XII Intact, Speech Normal Skin: Positive for: Warm, Dry, Normal Color. Negative for: Rashes Psychiatric: Positive for: Alert, Oriented x 3, Lethargic - Medications Active Medications: Active Medications Generic Name Dose Route Start Last Admin Trade Name Freq PRN Reason Stop Dose Admin Acetaminophen 650 mg 10/14/18 19:37 Tylenol 650 Mg Supp [place] Q6 PRN Pain, moderate (4-7) Apixaban 5 mg 10/15/18 22:00 10/16/18 10:28 Eliquis PO 5 mg Q12 SIGIFREDO Administration Dextrose 50 ml 10/16/18 11:03 Dextrose 50% Inj IV 10/16/18 11:04 ONCE ONE Gabapentin 300 mg 10/15/18 10:00 10/16/18 10:28 Neurontin PO 300 mg TID SIGIFREDO Administration Hydromorphone HCl 0.5 mg 10/15/18 09:15 10/16/18 08:22 Dilaudid IVP 0.5 mg Q4H PRN Administration Pain, severe (8-10) Rosuvastatin Calcium 5 mg 10/15/18 23:45 10/15/18 23:45 Crestor PO Not Given HS SIGIFREDO Topiramate 150 mg 10/15/18 18:00 10/16/18 10:28 Topamax PO 150 mg BID SIGIFREDO Administration - Patient Studies Lab Studies: Microbiology Studies 10/15/18 01:37 MRSA Culture (Admit) - Final Nose MRSA NOT DETECTED Lab Studies 10/16/18 10/16/18 10/16/18 Range/Units 10:59 10:58 06:22 WBC (4.8-10.8) K/uL RBC (3.80-5.20) Mil/uL Hgb (11.0-16.0) g/dL Hct (34.0-47.0) % MCV (81.0-99.0) fL MCH (27.0-31.0) pg MCHC (33.0-37.0) g/dL RDW (11.5-14.5) % Plt Count (130-400) K/uL MPV (7.2-11.7) fL Neut % (Auto) (50.0-75.0) % Lymph % (Auto) (20.0-40.0) % [place] % (Auto) (0.0-10.0) % Eos % (Auto) (0.0-4.0) % Baso % (Auto) (0.0-2.0) % Neut # (Auto) (1.8-7.0) K/uL Lymph # (Auto) (1.0-4.3) K/uL [place] # (Auto) (0.0-0.8) K/uL Eos # (Auto) (0.0-0.7) K/uL Baso # (Auto) (0.0-0.2) K/uL Sodium 139 (132-148) mmol/L Potassium 3.7 (3.6-5.2) mmol/L Chloride 109 H (98-107) mmol/L Carbon Dioxide 21 L (22-30) mmol/L Anion Gap 13 (10-20) BUN 8 (7-17) mg/dL Creatinine 0.9 (0.7-1.2) mg/dL Est GFR ( Amer) > 60 Est GFR (Non-Af Amer) > 60 POC Glucose (mg/dL) 71 68 (65-110) mg/dL Random Glucose 92 (65-105) mg/dL Calcium 8.6 (8.6-10.4) mg/dl Phosphorus 3.5 (2.5-4.5) mg/dL Magnesium 2.2 (1.6-2.3) mg/dL Total Bilirubin 0.4 (0.2-1.3) mg/dL AST 10 L D (14-36) U/L ALT 18 (9-52) U/L Alkaline Phosphatase 72 (38-126) U/L Total Creatine Kinase (30-135) U/L Troponin I (0.00-0.120) ng/mL Total Protein 6.7 (6.3-8.3) g/dL Albumin 3.7 (3.5-5.0) g/dL Globulin 3.1 (2.2-3.9) gm/dL Albumin/Globulin Ratio 1.2 (1.0-2.1) Urine Opiates Screen (NEGATIVE) Urine Methadone Screen (NEGATIVE) Ur Barbiturates Screen (NEGATIVE) Ur Phencyclidine Scrn (NEGATIVE) Ur Amphetamines Screen (NEGATIVE) U Benzodiazepines Scrn (NEGATIVE) U Oth Cocaine Metabols (NEGATIVE) U Cannabinoids Screen (NEGATIVE) 1210/16/18 10/15/18 Range/Units 06:22 02:53 17:04 WBC 8.2 (4.8-10.8) K/uL RBC 4.81 (3.80-5.20) Mil/uL Hgb 13.3 (11.0-16.0) g/dL Hct 39.8 (34.0-47.0) % MCV 82.8 (81.0-99.0) fL MCH 27.8 (27.0-31.0) pg MCHC 33.5 (33.0-37.0) g/dL RDW 14.4 (11.5-14.5) % Plt Count 332 (130-400) K/uL MPV 8.8 (7.2-11.7) fL Neut % (Auto) 64.5 (50.0-75.0) % Lymph % (Auto) 24.5 (20.0-40.0) % [place] % (Auto) 6.6 (0.0-10.0) % Eos % (Auto) 3.4 (0.0-4.0) % Baso % (Auto) 1.0 (0.0-2.0) % Neut # (Auto) 5.3 (1.8-7.0) K/uL Lymph # (Auto) 2.0 (1.0-4.3) K/uL [place] # (Auto) 0.5 (0.0-0.8) K/uL Eos # (Auto) 0.3 (0.0-0.7) K/uL Baso # (Auto) 0.1 (0.0-0.2) K/uL Sodium (132-148) mmol/L Potassium (3.6-5.2) mmol/L Chloride (98-107) mmol/L Carbon Dioxide (22-30) mmol/L Anion Gap (10-20) BUN (7-17) mg/dL Creatinine (0.7-1.2) mg/dL Est GFR ( Amer) Est GFR (Non-Af Amer) POC Glucose (mg/dL) (65-110) mg/dL Random Glucose (65-105) mg/dL Calcium (8.6-10.4) mg/dl Phosphorus (2.5-4.5) mg/dL Magnesium (1.6-2.3) mg/dL Total Bilirubin (0.2-1.3) mg/dL AST (14-36) U/L ALT (9-52) U/L Alkaline Phosphatase (38-126) U/L Total Creatine Kinase 28 L (30-135) U/L Troponin I (0.00-0.120) ng/mL Total Protein (6.3-8.3) g/dL Albumin (3.5-5.0) g/dL Globulin (2.2-3.9) gm/dL Albumin/Globulin Ratio (1.0-2.1) Urine Opiates Screen Positive H (NEGATIVE) Urine Methadone Screen Negative (NEGATIVE) Ur Barbiturates Screen Negative (NEGATIVE) Ur Phencyclidine Scrn Negative (NEGATIVE) Ur Amphetamines Screen Negative (NEGATIVE) U Benzodiazepines Scrn Negative (NEGATIVE) U Oth Cocaine Metabols Negative (NEGATIVE) U Cannabinoids Screen Negative (NEGATIVE) 10/15/18 Range/Units 16:45 WBC (4.8-10.8) K/uL RBC (3.80-5.20) Mil/uL Hgb (11.0-16.0) g/dL Hct (34.0-47.0) % MCV (81.0-99.0) fL MCH (27.0-31.0) pg MCHC (33.0-37.0) g/dL RDW (11.5-14.5) % Plt Count (130-400) K/uL MPV (7.2-11.7) fL Neut % (Auto) (50.0-75.0) % Lymph % (Auto) (20.0-40.0) % [place] % (Auto) (0.0-10.0) % Eos % (Auto) (0.0-4.0) % Baso % (Auto) (0.0-2.0) % Neut # (Auto) (1.8-7.0) K/uL Lymph # (Auto) (1.0-4.3) K/uL [place] # (Auto) (0.0-0.8) K/uL Eos # (Auto) (0.0-0.7) K/uL Baso # (Auto) (0.0-0.2) K/uL Sodium (132-148) mmol/L Potassium (3.6-5.2) mmol/L Chloride (98-107) mmol/L Carbon Dioxide (22-30) mmol/L Anion Gap (10-20) BUN (7-17) mg/dL Creatinine (0.7-1.2) mg/dL Est GFR ( Amer) Est GFR (Non-Af Amer) POC Glucose (mg/dL) (65-110) mg/dL Random Glucose (65-105) mg/dL Calcium (8.6-10.4) mg/dl Phosphorus (2.5-4.5) mg/dL Magnesium (1.6-2.3) mg/dL Total Bilirubin (0.2-1.3) mg/dL AST (14-36) U/L ALT (9-52) U/L Alkaline Phosphatase (38-126) U/L Total Creatine Kinase (30-135) U/L Troponin I < 0.0120 (0.00-0.120) ng/mL Total Protein (6.3-8.3) g/dL Albumin (3.5-5.0) g/dL Globulin (2.2-3.9) gm/dL Albumin/Globulin Ratio (1.0-2.1) Urine Opiates Screen (NEGATIVE) Urine Methadone Screen (NEGATIVE) Ur Barbiturates Screen (NEGATIVE) Ur Phencyclidine Scrn (NEGATIVE) Ur Amphetamines Screen (NEGATIVE) U Benzodiazepines Scrn (NEGATIVE) U Oth Cocaine Metabols (NEGATIVE) U Cannabinoids Screen (NEGATIVE) Laboratory Results - last 24 hr 10/15/18 10/15/18 10/16/18 16:45 17:04 02:53 WBC RBC Hgb Hct MCV MCH MCHC RDW Plt Count MPV Neut % (Auto) Lymph % (Auto) [place] % (Auto) Eos % (Auto) Baso % (Auto) Neut # (Auto) Lymph # (Auto) [place] # (Auto) Eos # (Auto) Baso # (Auto) Sodium Potassium Chloride Carbon Dioxide Anion Gap BUN Creatinine Est GFR ( Amer) Est GFR (Non-Af Amer) POC Glucose (mg/dL) Random Glucose Calcium Phosphorus Magnesium Total Bilirubin AST ALT Alkaline Phosphatase Total Creatine Kinase 28 L Troponin I < 0.0120 Total Protein Albumin Globulin Albumin/Globulin Ratio Urine Opiates Screen Positive H Urine Methadone Screen Negative Ur Barbiturates Screen Negative Ur Phencyclidine Scrn Negative Ur Amphetamines Screen Negative U Benzodiazepines Scrn Negative U Oth Cocaine Metabols Negative U Cannabinoids Screen Negative 10/16/18 10/16/18 10/16/18 06:22 06:22 10:58 WBC 8.2 RBC 4.81 Hgb 13.3 Hct 39.8 MCV 82.8 MCH 27.8 MCHC 33.5 RDW 14.4 Plt Count 332 MPV 8.8 Neut % (Auto) 64.5 Lymph % (Auto) 24.5 [place] % (Auto) 6.6 Eos % (Auto) 3.4 Baso % (Auto) 1.0 Neut # (Auto) 5.3 Lymph # (Auto) 2.0 [place] # (Auto) 0.5 Eos # (Auto) 0.3 Baso # (Auto) 0.1 Sodium 139 Potassium 3.7 Chloride 109 H Carbon Dioxide 21 L Anion Gap 13 BUN 8 Creatinine 0.9 Est GFR ( Amer) > 60 Est GFR (Non-Af Amer) > 60 POC Glucose (mg/dL) 68 Random Glucose 92 Calcium 8.6 Phosphorus 3.5 Magnesium 2.2 Total Bilirubin 0.4 AST 10 L D ALT 18 Alkaline Phosphatase 72 Total Creatine Kinase Troponin I Total Protein 6.7 Albumin 3.7 Globulin 3.1 Albumin/Globulin Ratio 1.2 Urine Opiates Screen Urine Methadone Screen Ur Barbiturates Screen Ur Phencyclidine Scrn Ur Amphetamines Screen U Benzodiazepines Scrn U Oth Cocaine Metabols U Cannabinoids Screen 10/16/18 10:59 WBC RBC Hgb Hct MCV MCH MCHC RDW Plt Count MPV Neut % (Auto) Lymph % (Auto) [place] % (Auto) Eos % (Auto) Baso % (Auto) Neut # (Auto) Lymph # (Auto) [place] # (Auto) Eos # (Auto) Baso # (Auto) Sodium Potassium Chloride Carbon Dioxide Anion Gap BUN Creatinine Est GFR ( Amer) Est GFR (Non-Af Amer) POC Glucose (mg/dL) 71 Random Glucose Calcium Phosphorus Magnesium Total Bilirubin AST ALT Alkaline Phosphatase Total Creatine Kinase Troponin I Total Protein Albumin Globulin Albumin/Globulin Ratio Urine Opiates Screen Urine Methadone Screen Ur Barbiturates Screen Ur Phencyclidine Scrn Ur Amphetamines Screen U Benzodiazepines Scrn U Oth Cocaine Metabols U Cannabinoids Screen Fingerstick Blood Sugar Results: 110 Critical Care Progress Note - Nutrition Nutrition: Nutrition Category Date Time Status Heart Healthy Diet [DIET] Diets 10/15/18 Lunch Active <Cara Meza - Last Filed: 10/17/18 10:39> CCU Objective - Vital Signs / Intake & Output Intake and Output (Last 8hrs): Intake & Output 10/16/18 10/17/18 10/17/18 22:59 06:59 14:59 Intake Total 1010 200 Output Total 900 300 Balance 110 -100 Intake: Oral 1010 200 Output: Urine 900 300 Urine, Voided 900 300 Other: # Voids Urine, Voided 1 - Medications Active Medications: Active Medications Generic Name Dose Route Start Last Admin Trade Name Freq PRN Reason Stop Dose Admin Acetaminophen 650 mg 10/16/18 11:50 Tylenol 325mg Tab PO Q6 PRN Pain, Mild (1-3) Apixaban 5 mg 10/15/18 22:00 10/17/18 10:21 Eliquis PO 5 mg Q12 SIGIFREDO Administration Gabapentin 300 mg 10/15/18 10:00 10/17/18 10:21 Neurontin PO 300 mg TID SIGIFREDO Administration Hydromorphone HCl 0.5 mg 10/15/18 09:15 10/17/18 10:22 Dilaudid IVP 0.5 mg Q4H PRN Administration Pain, severe (8-10) Rosuvastatin Calcium 5 mg 10/15/18 23:45 10/16/18 21:42 Crestor PO 5 mg HS SIGIFREDO Administration Topiramate 150 mg 10/15/18 18:00 10/17/18 10:21 Topamax PO 150 mg BID SIGIFREDO Administration - Patient Studies Lab Studies: Microbiology Studies 10/15/18 01:37 MRSA Culture (Admit) - Final Nose MRSA NOT DETECTED Lab Studies 10/17/18 10/17/18 10/16/18 Range/Units 06:17 06:17 17:04 WBC 9.6 (4.8-10.8) K/uL RBC 4.80 (3.80-5.20) Mil/uL Hgb 13.2 (11.0-16.0) g/dL Hct 40.6 (34.0-47.0) % MCV 84.7 (81.0-99.0) fL MCH 27.5 (27.0-31.0) pg MCHC 32.4 L (33.0-37.0) g/dL RDW 14.7 H (11.5-14.5) % Plt Count 317 (130-400) K/uL MPV 8.1 (7.2-11.7) fL Neut % (Auto) 68.4 (50.0-75.0) % Lymph % (Auto) 20.7 (20.0-40.0) % [place] % (Auto) 7.1 (0.0-10.0) % Eos % (Auto) 2.7 (0.0-4.0) % Baso % (Auto) 1.1 (0.0-2.0) % Neut # (Auto) 6.5 (1.8-7.0) K/uL Lymph # (Auto) 2.0 (1.0-4.3) K/uL [place] # (Auto) 0.7 (0.0-0.8) K/uL Eos # (Auto) 0.3 (0.0-0.7) K/uL Baso # (Auto) 0.1 (0.0-0.2) K/uL Sodium 138 (132-148) mmol/L Potassium 4.0 (3.6-5.2) mmol/L Chloride 110 H (98-107) mmol/L Carbon Dioxide 18 L (22-30) mmol/L Anion Gap 14 (10-20) BUN 12 (7-17) mg/dL Creatinine 0.9 (0.7-1.2) mg/dL Est GFR ( Amer) > 60 Est GFR (Non-Af Amer) > 60 POC Glucose (mg/dL) 130 H (65-110) mg/dL Random Glucose 88 (65-105) mg/dL Calcium 8.4 L (8.6-10.4) mg/dl Phosphorus 4.3 (2.5-4.5) mg/dL Magnesium 2.2 (1.6-2.3) mg/dL Total Bilirubin 0.4 (0.2-1.3) mg/dL AST 21 (14-36) U/L ALT 12 (9-52) U/L Alkaline Phosphatase 71 (38-126) U/L Total Protein 7.1 (6.3-8.3) g/dL Albumin 3.7 (3.5-5.0) g/dL Globulin 3.4 (2.2-3.9) gm/dL Albumin/Globulin Ratio 1.1 (1.0-2.1) 10/16/18 10/16/18 10/16/18 Range/Units 11:49 10:59 10:58 WBC (4.8-10.8) K/uL RBC (3.80-5.20) Mil/uL Hgb (11.0-16.0) g/dL Hct (34.0-47.0) % MCV (81.0-99.0) fL MCH (27.0-31.0) pg MCHC (33.0-37.0) g/dL RDW (11.5-14.5) % Plt Count (130-400) K/uL MPV (7.2-11.7) fL Neut % (Auto) (50.0-75.0) % Lymph % (Auto) (20.0-40.0) % [place] % (Auto) (0.0-10.0) % Eos % (Auto) (0.0-4.0) % Baso % (Auto) (0.0-2.0) % Neut # (Auto) (1.8-7.0) K/uL Lymph # (Auto) (1.0-4.3) K/uL [place] # (Auto) (0.0-0.8) K/uL Eos # (Auto) (0.0-0.7) K/uL Baso # (Auto) (0.0-0.2) K/uL Sodium (132-148) mmol/L Potassium (3.6-5.2) mmol/L Chloride (98-107) mmol/L Carbon Dioxide (22-30) mmol/L Anion Gap (10-20) BUN (7-17) mg/dL Creatinine (0.7-1.2) mg/dL Est GFR ( Amer) Est GFR (Non-Af Amer) POC Glucose (mg/dL) 159 H 71 68 (65-110) mg/dL Random Glucose (65-105) mg/dL Calcium (8.6-10.4) mg/dl Phosphorus (2.5-4.5) mg/dL Magnesium (1.6-2.3) mg/dL Total Bilirubin (0.2-1.3) mg/dL AST (14-36) U/L ALT (9-52) U/L Alkaline Phosphatase (38-126) U/L Total Protein (6.3-8.3) g/dL Albumin (3.5-5.0) g/dL Globulin (2.2-3.9) gm/dL Albumin/Globulin Ratio (1.0-2.1) Laboratory Results - last 24 hr 10/16/18 10/16/18 10/16/18 10:58 10:59 11:49 WBC RBC Hgb Hct MCV MCH MCHC RDW Plt Count MPV Neut % (Auto) Lymph % (Auto) [place] % (Auto) Eos % (Auto) Baso % (Auto) Neut # (Auto) Lymph # (Auto) [place] # (Auto) Eos # (Auto) Baso # (Auto) Sodium Potassium Chloride Carbon Dioxide Anion Gap BUN Creatinine Est GFR ( Amer) Est GFR (Non-Af Amer) POC Glucose (mg/dL) 68 71 159 H Random Glucose Calcium Phosphorus Magnesium Total Bilirubin AST ALT Alkaline Phosphatase Total Protein Albumin Globulin Albumin/Globulin Ratio 10/16/18 10/17/18 10/17/18 17:04 06:17 06:17 WBC 9.6 RBC 4.80 Hgb 13.2 Hct 40.6 MCV 84.7 MCH 27.5 MCHC 32.4 L RDW 14.7 H Plt Count 317 MPV 8.1 Neut % (Auto) 68.4 Lymph % (Auto) 20.7 [place] % (Auto) 7.1 Eos % (Auto) 2.7 Baso % (Auto) 1.1 Neut # (Auto) 6.5 Lymph # (Auto) 2.0 [place] # (Auto) 0.7 Eos # (Auto) 0.3 Baso # (Auto) 0.1 Sodium 138 Potassium 4.0 Chloride 110 H Carbon Dioxide 18 L Anion Gap 14 BUN 12 Creatinine 0.9 Est GFR ( Amer) > 60 Est GFR (Non-Af Amer) > 60 POC Glucose (mg/dL) 130 H Random Glucose 88 Calcium 8.4 L Phosphorus 4.3 Magnesium 2.2 Total Bilirubin 0.4 AST 21 ALT 12 Alkaline Phosphatase 71 Total Protein 7.1 Albumin 3.7 Globulin 3.4 Albumin/Globulin Ratio 1.1 Critical Care Progress Note - Nutrition Nutrition: Nutrition Category Date Time Status Heart Healthy Diet [DIET] Diets 10/15/18 Lunch Active
--- NOTE | 2018-10-16 14:37 | CP.PCM.PN ---
Subjective - Date & Time of Evaluation Date of Evaluation: 10/16/18 Time of Evaluation: 12:00 - Subjective Subjective: clinically same Objective - Vital Signs/Intake and Output Vital Signs (last 24 hours): Temp Pulse Resp BP Pulse Ox 98.4 F 90 16 109/66 99 10/16/18 08:00 10/16/18 14:00 10/16/18 14:00 10/16/18 12:22 10/16/18 14:00 Intake and Output: 10/16/18 10/16/18 06:59 18:59 Intake Total 450 480 Output Total 700 600 Balance -250 -120 - Medications Medications: Current Medications Acetaminophen (Tylenol 325mg Tab) 650 mg PO Q6 PRN PRN Reason: Pain, Mild (1-3) Apixaban (Eliquis) 5 mg PO Q12 [facility] Last Admin: 10/16/18 10:28 Dose: 5 mg Gabapentin (Neurontin) 300 mg PO TID [facility] Last Admin: 10/16/18 14:16 Dose: 300 mg Hydromorphone HCl (Dilaudid) 0.5 mg IVP Q4H PRN PRN Reason: Pain, severe (8-10) Last Admin: 10/16/18 12:39 Dose: 0.5 mg Rosuvastatin Calcium (Crestor) 5 mg PO HS [facility] Last Admin: 10/15/18 23:45 Dose: Not Given Topiramate (Topamax) 150 mg PO BID [facility] Last Admin: 10/16/18 10:28 Dose: 150 mg - Labs Labs: 10/16/18 06:22 10/16/18 06:22 PT 11.5 SECONDS (9.7-12.2) 10/14/18 17:21 INR 1.1 10/14/18 17:21 APTT 32 SECONDS (21-34) 10/14/18 17:21 - Constitutional Appears: Well - Head Exam Head Exam: ATRAUMATIC, NORMAL INSPECTION, NORMOCEPHALIC - Eye Exam Eye Exam: EOMI, Normal appearance, PERRL Pupil Exam: NORMAL ACCOMODATION, PERRL - ENT Exam ENT Exam: Mucous Membranes Moist, Normal Exam - Neck Exam Neck Exam: Full ROM, Normal Inspection. absent: Lymphadenopathy - Respiratory Exam Respiratory Exam: Decreased Breath Sounds - Cardiovascular Exam Cardiovascular Exam: REGULAR RHYTHM, +S1, +S2 - GI/Abdominal Exam GI & Abdominal Exam: Soft, Diminished Bowel Sounds - Rectal Exam Rectal Exam: Deferred
--- NOTE | 2018-10-16 14:48 | CP.PCM.PN ---
Subjective - Date & Time of Evaluation Date of Evaluation: 10/16/18 Time of Evaluation: 14:45 - Subjective Subjective: Neurology Progress Note for Dr. Haque Patient seen and examined at bedside. No acute overnight events. Patient states that she still feels weak in her left arm and leg and has not improved since being admitted. Patient states that her left leg hurts and worsens when weightbearing. Patient denies CP, SOB, n/v/d, abdominal pain, fever, chills, MUNSON, or dizziness. Objective - Vital Signs/Intake and Output Vital Signs (last 24 hours): Temp Pulse Resp BP Pulse Ox 98.4 F 90 16 109/66 99 10/16/18 08:00 10/16/18 14:00 10/16/18 14:00 10/16/18 12:22 10/16/18 14:00 Intake and Output: 10/16/18 10/16/18 06:59 18:59 Intake Total 450 1110 Output Total 700 600 Balance -250 510 - Medications Medications: Current Medications Acetaminophen (Tylenol 325mg Tab) 650 mg PO Q6 PRN PRN Reason: Pain, Mild (1-3) Apixaban (Eliquis) 5 mg PO Q12 [facility] Last Admin: 10/16/18 10:28 Dose: 5 mg Gabapentin (Neurontin) 300 mg PO TID [facility] Last Admin: 10/16/18 14:16 Dose: 300 mg Hydromorphone HCl (Dilaudid) 0.5 mg IVP Q4H PRN PRN Reason: Pain, severe (8-10) Last Admin: 10/16/18 12:39 Dose: 0.5 mg Rosuvastatin Calcium (Crestor) 5 mg PO HS [facility] Last Admin: 10/15/18 23:45 Dose: Not Given Topiramate (Topamax) 150 mg PO BID [facility] Last Admin: 10/16/18 10:28 Dose: 150 mg - Labs Labs: 10/16/18 06:22 10/16/18 06:22 PT 11.5 SECONDS (9.7-12.2) 10/14/18 17:21 INR 1.1 10/14/18 17:21 APTT 32 SECONDS (21-34) 10/14/18 17:21 - Constitutional Appears: No Acute Distress - Head Exam Head Exam: NORMAL INSPECTION - Eye Exam Eye Exam: Normal appearance - ENT Exam ENT Exam: Normal Exam - Neck Exam Neck Exam: Normal Inspection - Respiratory Exam Respiratory Exam: Clear to Ausculation Bilateral. absent: Rales, Rhonchi, Wheezes - Cardiovascular Exam Cardiovascular Exam: REGULAR RHYTHM, RRR - GI/Abdominal Exam GI & Abdominal Exam: Soft, Normal Bowel Sounds - Extremities Exam Extremities Exam: Normal Inspection - Back Exam Back Exam: NORMAL INSPECTION - Neurological Exam Neurological Exam: Alert, Awake, CN II-XII Intact, Oriented x3 Additional comments: slight facial droop of right lip, tongue deviated to the right, uvula midline, normal speech, no slurring, able to eat without difficulty RUE/RLE: 5/5 strength, sensation intact, normal babinski, normal reflexes LUE/LLE: 4/5 strength, sensation intact, normal babinski, normal reflexes; no contralateral LE applied downwards while trying to lift left leg - Psychiatric Exam Psychiatric exam: Normal Affect - Skin Skin Exam: Normal Color Assessment and Plan - Assessment and Plan (Free Text) Assessment: 28 year old female with an extensive past medical history of polysubstance ab use, seizures, stroke, protein C and S deficiency, sickle cell disease, HLD, CAD, DVT, who presents with chest pain and left upper and lower extremity weakness. Neurology consulted to r/o CVA/TIA. Head CT and CTA were completed and negative for acute pathology. Patient was given tPA. Ordered brain MRI to r/o pathology which was also negative. Plan: Lower and Upper Extremity weakness - CVA unlikely as imaging has been unremarkable; TIA possible, but symptoms have been persistent, which makes it unlikely - Malingering possible - Head CT: negative for acute intracranial pathology - Head CTA: unremarkable; negative for thrombus, occlusion, stenosis in internal, intracranial or vertebral arteries. - Brain MRI: unremarkable - Ordered hypercoaguable workup- follow up - Lipid panel: TG 93, Chol 161, LDL 94, HDL 51 - UDS: + cocaine, + amphetamines - Psychiatry following - Cont Eliquis 5mg PO BID, Topamax 150mg PO BID, Crestor 5mg PO HS Patient discussed in detail with Dr. Haque. Lux Kirby, DO PGY2
--- NOTE | 2018-10-16 17:05 | CP.PCM.CON ---
History of Present Illness - History of Present Illness History of Present Illness: I was asked to see patient by Dr Meza. Patient seen 10/16/18 1640 Patient is a 28 year old femael with protein C/s deficiency, HTN previous CVA hypercholesterolemia who presented as a code stroke. The patient developed a left sided chest pressue and weakness. Code stroke was called, and the patient was noted to have a negative MRI. tPA was given. The patient reportedly feels improved. She has chest pain with deep inspiration, or when lying flat. She denies palpitations. Review of Systems - Constitutional Constitutional: absent: As Per HPI, Anorexia, Chills, Daytime Sleepiness, Excessive Sweating, Fatigue, Fever, Frequent Falls, Headache, Increased Appe tite, Lethargy, Malaise, Night Sweats, Snoring, Sleep Apnea, Weight Gain, Weight Loss, Weakness, Other - EENT Eyes: absent: As Per HPI, Blind Spots, Blurred Vision, Change in Vision, Decreased Night Vision, Diplopia, Discharge, Dry Eye, Exophthalmos, Floaters, Irritation, Itchy Eyes, Loss of Peripheral Vision, Pain, Photophobia, Requires Corrective Lenses, Sees Flashes, Spots in Vision, Tunnel Vision, Other Visual Disturbances, Loss of Vision, Other Ears: absent: As Per HPI, Decreased Hearing, Ear Discharge, Ear Pain, Tinnitus, Abnormal Hearing, Disequilibrium, Dizziness, Other Nose/Mouth/Throat: absent: As Per HPI, Epistaxis, Nasal Congestion, Nasal Discharge, Nasal Obstruction, Nasal Trauma, Nose Pain, Post Nasal Drip, Sinus Pain, Sinus Pressure, Bleeding Gums, Change in Voice, Dental Pain, Dry Mouth, Dysphagia, Halitosis, Hoarsness, Lip Swelling, Mouth Lesions, Mouth Pain, Odynophagia, Sore Throat, Throat Swelling, Tongue Swelling, Facial Pain, Neck Pain, Neck Mass, Other - Breasts Breasts: absent: As Per HPI, Change in Shape, Mass, Pain, Nipple Discharge, Nipple Inversion, Skin Changes, Swelling, Other - Cardiovascular Cardiovascular: Chest Pain, Dyspnea - Respiratory Respiratory: Dyspnea - Gastrointestinal Gastrointestinal: absent: As Per HPI, Abdominal Pain, Belching, Bloating, Change in Bowel Habits, Change in Stool Character, Coffee Ground Emesis, Constipation, Cramping, Diarrhea, Dyspepsia, Dysphagia, Early Satiety, Excessive Flatus, Fecal Incontinence, Heartburn, Hematemesis, Hematochezia, Loose Stools, Melena, Nausea, Odynophagia, Temesmus, Vomiting, Other - Genitourinary Genitourinary: absent: As Per HPI, Change in Urinary Stream, Difficulty Urinating, Dysuria, Flank Pain, Hematuria, Pyuria, Nocturia, Urinary Incontinence, Urinary Frequency, Urinary Hesitance, Urinary Urgency, Voiding Freq/Small Amts, Freq UTI, Hx Renal/Bladder Calculi, Hx /Renal Surgery, Bladder Distension, Other - Musculoskeletal Musculoskeletal: absent: As Per HPI, Abnormal Gait, Arthralgias, Atrophy, Back Pain, Deformity, Joint Swelling, Limited Range of Motion, Loss of Height, Muscle Cramps, Muscle Weakness, Myalgias, Neck Pain, Numbness, Radiating Pain into Limb, Stiffness, Tingling, Other - Integumentary Integumentary: absent: As Per HPI, Acne, Alopecia, Bleeding Lesions, Change in Hair, Change in Nails, Change in Pigmentation, Changing Lesions, Dry Skin, Erythema, Furuncle, Hirsutism, Lesions, New Lesions, Non-Healing Lesions, Photosensitivity, Pruritus, Rash, Skin Pain, Skin Ulcer, Sores, Striae, Swellin g, Unusual Bruising, Wounds, Jaundice, Other - Neurological Neurological: Focal Weakness - Psychiatric Psychiatric: absent: As Per HPI, Abnormal Sleep Pattern, Anhedonia, Anxiety, Auditory Hallucinations, Behavioral Changes, Change in Appetite, Change in Libido, Confusion, Depression, Difficulty Concentrating, Hallucinations, Homicidal Ideation, Hopelessness, Irritability, Memory Loss, Mood Swings, Panic Attacks, Paranoia, Suicidal Ideation, Visual Hallucinations, Tactile Hallucinations, Other - Endocrine Endocrine: absent: As Per HPI, Change in Body Appearance, Change in Libido, Cold Intolorance, Deepening of Voice, Excessive Sweating, Fatigue, Flushing, Heat Intolorance, Increase in Ring/Shoe/Hat Size, Palpitations, Polydipsia, Polyphagia, Polyuria, Other - Hematologic/Lymphatic Hematologic: absent: As Per HPI, Easy Bleeding, Easy Bruising, Lymphadenopathy, Other Past Patient History - Infectious Disease Hx of Infectious Diseases: None - Tetanus Immunizations Tetanus Immunization: Unknown - Past Medical History & Family History Past Medical History?: Yes - Past Social History Smoking Status: Current Some Days Smoker - CARDIAC Hx Hypercholesterolemia: Yes Hx Hypertension: Yes - PULMONARY Hx Asthma: Yes - NEUROLOGICAL Hx Migraine: Yes Hx Seizures: Yes Hx Transient Ischemic Attacks (TIA): Yes - HEENT Hx HEENT Problems: No Other/Comment: wears glasses - RENAL Hx Chronic Kidney Disease: No - ENDOCRINE/METABOLIC Hx Endocrine Disorders: Yes Hx Diabetes Mellitus Type 2: Yes - HEMATOLOGICAL/ONCOLOGICAL Hx Anemia: Yes Hx Human Immunodeficiency Virus (HIV): No Hx Sickle Cell Disease: Yes - INTEGUMENTARY Hx Dermatological Problems: No - MUSCULOSKELETAL/RHEUMATOLOGICAL Hx Arthritis: Yes - GASTROINTESTINAL Hx Gastrointestinal Disorders: No - GENITOURINARY/GYNECOLOGICAL Hx Sexually Transmitted Disorders: No - PSYCHIATRIC Hx Anxiety: Yes Hx Depression: Yes Hx Schizophrenia: Yes Hx Substance Use: Yes - SURGICAL HISTORY Hx Surgeries: Yes (L ovarian cyst) Other/Comment: cyst removed from left ovary - ANESTHESIA Hx Anesthesia: Yes Hx Anesthesia Reactions: Yes (states "couldn't breathe") Meds Allergies/Adverse Reactions: Allergies Allergy/AdvReac Type Severity Reaction Status Date / Time ketorolac tromethamine Allergy Mild SWELLING Verified 07/17/18 22:20 [From Toradol] naproxen [From Naprosyn] Allergy Mild URTICARIA Verified 07/17/18 22:20 polyethylene glycol 3350 Allergy Mild RASH Verified 07/17/18 22:20 [From Miralax] shellfish derived Allergy Mild ANAPHYLAXIS Verified 07/17/18 22:20 mushroom Allergy ANAPHYLAXIS Verified 07/17/18 22:20 ibuprofen [From Motrin] AdvReac Mild vomiting Verified 07/17/18 22:20 blood PORK AdvReac DIARRHEA Verified 07/17/18 22:20 nguyen Allergy Severe RASH Uncoded 07/17/18 22:20 - Medications Medications: Current Medications Acetaminophen (Tylenol 325mg Tab) 650 mg PO Q6 PRN PRN Reason: Pain, Mild (1-3) Apixaban (Eliquis) 5 mg PO Q12 [facility] Last Admin: 10/16/18 10:28 Dose: 5 mg Gabapentin (Neurontin) 300 mg PO TID [facility] Last Admin: 10/16/18 14:16 Dose: 300 mg Hydromorphone HCl (Dilaudid) 0.5 mg IVP Q4H PRN PRN Reason: Pain, severe (8-10) Last Admin: 10/16/18 12:39 Dose: 0.5 mg Rosuvastatin Calcium (Crestor) 5 mg PO HS [facility] Last Admin: 10/15/18 23:45 Dose: Not Given Topiramate (Topamax) 150 mg PO BID [facility] Last Admin: 10/16/18 10:28 Dose: 150 mg Physical Exam - Constitutional Appears: Non-toxic - Head Exam Head Exam: NORMAL INSPECTION - Eye Exam Eye Exam: Normal appearance - ENT Exam ENT Exam: Mucous Membranes Moist - Neck Exam Neck exam: Positive for: Full Rom, Normal Inspection. Negative for: Lymphadenopathy, Meningismus, Tenderness, Thyromegaly - Respiratory Exam Respiratory Exam: Chest Wall Tenderness, Clear to Auscultation Bilateral, NORMAL BREATHING PATTERN - Cardiovascular Exam Cardiovascular Exam: REGULAR RHYTHM - GI/Abdominal Exam GI & Abdominal Exam: Normal Bowel Sounds, Soft - Rectal Exam Rectal Exam: Deferred - Extremities Exam Extremities exam: Negative for: pedal edema - Back Exam Back exam: NORMAL INSPECTION - Neurological Exam Neurological exam: Alert, Oriented x3 Additional comments: LUE weakness - Psychiatric Exam Psychiatric exam: Normal Affect - Skin Skin Exam: Normal Color Results - Vital Signs Recent Vital Signs: Last Vital Signs Temp 98.4 F 10/16/18 12:00 Pulse 90 10/16/18 14:00 Resp 16 10/16/18 14:00 BP 109/66 10/16/18 12:22 Pulse Ox 99 10/16/18 14:00 - Labs Result Diagrams: 10/16/18 06:22 10/16/18 06:22 Labs: Laboratory Results - last 24 hr 10/15/18 10/15/18 10/16/18 16:45 17:04 02:53 WBC RBC Hgb Hct MCV MCH MCHC RDW Plt Count MPV Neut % (Auto) Lymph % (Auto) [place] % (Auto) Eos % (Auto) Baso % (Auto) Neut # (Auto) Lymph # (Auto) [place] # (Auto) Eos # (Auto) Baso # (Auto) Sodium Potassium Chloride Carbon Dioxide Anion Gap BUN Creatinine Est GFR ( Amer) Est GFR (Non-Af Amer) POC Glucose (mg/dL) Random Glucose Calcium Phosphorus Magnesium Total Bilirubin AST ALT Alkaline Phosphatase Total Creatine Kinase 28 L Troponin I < 0.0120 Total Protein Albumin Globulin Albumin/Globulin Ratio Urine Opiates Screen Positive H Urine Methadone Screen Negative Ur Barbiturates Screen Negative Ur Phencyclidine Scrn Negative Ur Amphetamines Screen Negative U Benzodiazepines Scrn Negative U Oth Cocaine Metabols Negative U Cannabinoids Screen Negative 10/16/18 10/16/18 10/16/18 06:22 06:22 10:58 WBC 8.2 RBC 4.81 Hgb 13.3 Hct 39.8 MCV 82.8 MCH 27.8 MCHC 33.5 RDW 14.4 Plt Count 332 MPV 8.8 Neut % (Auto) 64.5 Lymph % (Auto) 24.5 [place] % (Auto) 6.6 Eos % (Auto) 3.4 Baso % (Auto) 1.0 Neut # (Auto) 5.3 Lymph # (Auto) 2.0 [place] # (Auto) 0.5 Eos # (Auto) 0.3 Baso # (Auto) 0.1 Sodium 139 Potassium 3.7 Chloride 109 H Carbon Dioxide 21 L Anion Gap 13 BUN 8 Creatinine 0.9 Est GFR ( Amer) > 60 Est GFR (Non-Af Amer) > 60 POC Glucose (mg/dL) 68 Random Glucose 92 Calcium 8.6 Phosphorus 3.5 Magnesium 2.2 Total Bilirubin 0.4 AST 10 L D ALT 18 Alkaline Phosphatase 72 Total Creatine Kinase Troponin I Total Protein 6.7 Albumin 3.7 Globulin 3.1 Albumin/Globulin Ratio 1.2 Urine Opiates Screen Urine Methadone Screen Ur Barbiturates Screen Ur Phencyclidine Scrn Ur Amphetamines Screen U Benzodiazepines Scrn U Oth Cocaine Metabols U Cannabinoids Screen 10/16/18 10/16/18 10:59 11:49 WBC RBC Hgb Hct MCV MCH MCHC RDW Plt Count MPV Neut % (Auto) Lymph % (Auto) [place] % (Auto) Eos % (Auto) Baso % (Auto) Neut # (Auto) Lymph # (Auto) [place] # (Auto) Eos # (Auto) Baso # (Auto) Sodium Potassium Chloride Carbon Dioxide Anion Gap BUN Creatinine Est GFR ( Amer) Est GFR (Non-Af Amer) POC Glucose (mg/dL) 71 159 H Random Glucose Calcium Phosphorus Magnesium Total Bilirubin AST ALT Alkaline Phosphatase Total Creatine Kinase Troponin I Total Protein Albumin Globulin Albumin/Globulin Ratio Urine Opiates Screen Urine Methadone Screen Ur Barbiturates Screen Ur Phencyclidine Scrn Ur Amphetamines Screen U Benzodiazepines Scrn U Oth Cocaine Metabols U Cannabinoids Screen - EKG Data EKG Interpreted by: Myself Assessment & Plan (1) Chest pain Assessment and Plan: echocardiogram reveals normal left ventricular function and no wall motion abnormalities. The patient likely has pericarditis. symptomatic pain control Status: Acute Priority: High (2) HTN (hypertension) Assessment and Plan: blood pressure control Status: Acute (3) Protein S deficiency Assessment and Plan: anticoagulation Status: Acute
--- NOTE | 2018-10-16 17:45 | CP.PCM.PN ---
<Maria Del Rosario Clay - Last Filed: 10/16/18 17:41> Subjective - Date & Time of Evaluation Date of Evaluation: 10/16/18 Time of Evaluation: 17:41 - Subjective Subjective: Maria Del Rosario Clay PGY1 Progress Note for Dr. Maikel Meza Pt boyfriend notified staff that pt "fainted" and requested evaluation. Boyfriend has complained for similar events multiple times throughout the day. Upon examination, pt was resting in bed with eyes closed, unresponsive to verbal commands but responsive to tactile stimuli. Vitals were stable. Stat POC glucose was taken and showed a glucose of 130. Pt awoke after 2 minutes, awoke and asked to be fed. Pt has been asking for food for her boyfriend multiple times throughout the day. Objective - Vital Signs/Intake and Output Vital Signs (last 24 hours): Temp Pulse Resp BP Pulse Ox 98.5 F 76 20 103/70 100 10/16/18 16:00 10/16/18 16:00 10/16/18 16:00 10/16/18 16:00 10/16/18 16:00 Intake and Output: 10/16/18 10/16/18 06:59 18:59 Intake Total 450 1390 Output Total 700 600 Balance -250 790 - Medications Medications: Current Medications Acetaminophen (Tylenol 325mg Tab) 650 mg PO Q6 PRN PRN Reason: Pain, Mild (1-3) Apixaban (Eliquis) 5 mg PO Q12 [facility] Last Admin: 10/16/18 10:28 Dose: 5 mg Gabapentin (Neurontin) 300 mg PO TID [facility] Last Admin: 10/16/18 14:16 Dose: 300 mg Hydromorphone HCl (Dilaudid) 0.5 mg IVP Q4H PRN PRN Reason: Pain, severe (8-10) Last Admin: 10/16/18 12:39 Dose: 0.5 mg Rosuvastatin Calcium (Crestor) 5 mg PO HS [facility] Last Admin: 10/15/18 23:45 Dose: Not Given Topiramate (Topamax) 150 mg PO BID [facility] Last Admin: 10/16/18 10:28 Dose: 150 mg - Labs Labs: 10/16/18 06:22 10/16/18 06:22 PT 11.5 SECONDS (9.7-12.2) 10/14/18 17:21 INR 1.1 10/14/18 17:21 APTT 32 SECONDS (21-34) 10/14/18 17:21 <Cara Meza - Last Filed: 10/17/18 10:41> Objective - Vital Signs/Intake and Output Vital Signs (last 24 hours): Temp Pulse Resp BP Pulse Ox 98.1 F 72 15 105/59 L 95 10/17/18 04:00 10/17/18 04:00 10/17/18 04:00 10/17/18 04:00 10/17/18 04:00 Intake and Output: 10/17/18 10/17/18 06:59 18:59 Intake Total 450 Output Total 600 Balance -150 - Medications Medications: Current Medications Acetaminophen (Tylenol 325mg Tab) 650 mg PO Q6 PRN PRN Reason: Pain, Mild (1-3) Apixaban (Eliquis) 5 mg PO Q12 [facility] Last Admin: 10/17/18 10:21 Dose: 5 mg Gabapentin (Neurontin) 300 mg PO TID [facility] Last Admin: 10/17/18 10:21 Dose: 300 mg Hydromorphone HCl (Dilaudid) 0.5 mg IVP Q4H PRN PRN Reason: Pain, severe (8-10) Last Admin: 10/17/18 10:22 Dose: 0.5 mg Rosuvastatin Calcium (Crestor) 5 mg PO HS [facility] Last Admin: 10/16/18 21:42 Dose: 5 mg Topiramate (Topamax) 150 mg PO BID [facility] Last Admin: 10/17/18 10:21 Dose: 150 mg - Labs Labs: 10/17/18 06:17 10/17/18 06:17 PT 11.5 SECONDS (9.7-12.2) 10/14/18 17:21 INR 1.1 10/14/18 17:21 APTT 32 SECONDS (21-34) 10/14/18 17:21 Assessment and Plan - Assessment and Plan (Free Text) Assessment: -Malingering: noticed by multiple medical care takers, nursing, residents, physicians. -Psych eval requested as patient is malingering stroke like symptoms to obtain opoids. -psych to discuss behavioral issues and opoid addiction
--- NOTE | 2018-10-16 22:37 | CP.PCM.CON ---
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 The patient reports to being on coumadin and Eliquis for her recurrent strokes with protein C+S deficiency. She stopped taking blood thinners as she reports to "being lazy". She currently reports to feeling better. 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 Past Patient History - Infectious Disease Hx of Infectious Diseases: None - Tetanus Immunizations Tetanus Immunization: Unknown - Past Medical History & Family History Past Medical History?: Yes - Past Social History Smoking Status: Current Some Days Smoker - CARDIAC Hx Hypercholesterolemia: Yes Hx Hypertension: Yes - PULMONARY Hx Asthma: Yes - NEUROLOGICAL Hx Migraine: Yes Hx Seizures: Yes Hx Transient Ischemic Attacks (TIA): Yes - HEENT Hx HEENT Problems: No Other/Comment: wears glasses - RENAL Hx Chronic Kidney Disease: No - ENDOCRINE/METABOLIC Hx Endocrine Disorders: Yes Hx Diabetes Mellitus Type 2: Yes - HEMATOLOGICAL/ONCOLOGICAL Hx Anemia: Yes Hx Human Immunodeficiency Virus (HIV): No Hx Sickle Cell Disease: Yes - INTEGUMENTARY Hx Dermatological Problems: No - MUSCULOSKELETAL/RHEUMATOLOGICAL Hx Arthritis: Yes - GASTROINTESTINAL Hx Gastrointestinal Disorders: No - GENITOURINARY/GYNECOLOGICAL Hx Sexually Transmitted Disorders: No - PSYCHIATRIC Hx Anxiety: Yes Hx Depression: Yes Hx Schizophrenia: Yes Hx Substance Use: Yes - SURGICAL HISTORY Hx Surgeries: Yes (L ovarian cyst) Other/Comment: cyst removed from left ovary - ANESTHESIA Hx Anesthesia: Yes Hx Anesthesia Reactions: Yes (states "couldn't breathe") Meds Allergies/Adverse Reactions: Allergies Allergy/AdvReac Type Severity Reaction Status Date / Time ketorolac tromethamine Allergy Mild SWELLING Verified 07/17/18 22:20 [From Toradol] naproxen [From Naprosyn] Allergy Mild URTICARIA Verified 07/17/18 22:20 polyethylene glycol 3350 Allergy Mild RASH Verified 07/17/18 22:20 [From Miralax] shellfish derived Allergy Mild ANAPHYLAXIS Verified 07/17/18 22:20 mushroom Allergy ANAPHYLAXIS Verified 07/17/18 22:20 ibuprofen [From Motrin] AdvReac Mild vomiting Verified 07/17/18 22:20 blood PORK AdvReac DIARRHEA Verified 07/17/18 22:20 nguyen Allergy Severe RASH Uncoded 07/17/18 22:20 - Medications Medications: Current Medications Acetaminophen (Tylenol 325mg Tab) 650 mg PO Q6 PRN PRN Reason: Pain, Mild (1-3) Apixaban (Eliquis) 5 mg PO Q12 [facility] Last Admin: 10/16/18 21:28 Dose: 5 mg Gabapentin (Neurontin) 300 mg PO TID [facility] Last Admin: 10/16/18 18:08 Dose: 300 mg Hydromorphone HCl (Dilaudid) 0.5 mg IVP Q4H PRN PRN Reason: Pain, severe (8-10) Last Admin: 10/16/18 21:35 Dose: 0.5 mg Rosuvastatin Calcium (Crestor) 5 mg PO HS [facility] Last Admin: 10/16/18 21:42 Dose: 5 mg Topiramate (Topamax) 150 mg PO BID [facility] Last Admin: 10/16/18 20:14 Dose: 150 mg Physical Exam - Head Exam Head Exam: ATRAUMATIC - Eye Exam Eye Exam: Normal appearance - ENT Exam ENT Exam: Mucous Membranes Dry - Respiratory Exam Respiratory Exam: NORMAL BREATHING PATTERN - Cardiovascular Exam Cardiovascular Exam: +S1, +S2 - GI/Abdominal Exam GI & Abdominal Exam: Normal Bowel Sounds - Extremities Exam Extremities exam: Positive for: normal inspection - Neurological Exam Neurological exam: Oriented x3 - Psychiatric Exam Psychiatric exam: Normal Affect, Normal Mood - Skin Skin Exam: Warm Results - Vital Signs Recent Vital Signs: Last Vital Signs Temp 98 F 10/16/18 20:00 Pulse 75 10/16/18 20:00 Resp 16 10/16/18 20:00 BP 98/65 L 10/16/18 20:00 Pulse Ox 96 10/16/18 20:00 - Labs Result Diagrams: 10/16/18 06:22 10/16/18 06:22 Labs: Laboratory Results - last 24 hr 10/16/18 10/16/18 10/16/18 02:53 06:22 06:22 WBC 8.2 RBC 4.81 Hgb 13.3 Hct 39.8 MCV 82.8 MCH 27.8 MCHC 33.5 RDW 14.4 Plt Count 332 MPV 8.8 Neut % (Auto) 64.5 Lymph % (Auto) 24.5 [place] % (Auto) 6.6 Eos % (Auto) 3.4 Baso % (Auto) 1.0 Neut # (Auto) 5.3 Lymph # (Auto) 2.0 [place] # (Auto) 0.5 Eos # (Auto) 0.3 Baso # (Auto) 0.1 Sodium 139 Potassium 3.7 Chloride 109 H Carbon Dioxide 21 L Anion Gap 13 BUN 8 Creatinine 0.9 Est GFR ( Amer) > 60 Est GFR (Non-Af Amer) > 60 POC Glucose (mg/dL) Random Glucose 92 Calcium 8.6 Phosphorus 3.5 Magnesium 2.2 Total Bilirubin 0.4 AST 10 L D ALT 18 Alkaline Phosphatase 72 Total Protein 6.7 Albumin 3.7 Globulin 3.1 Albumin/Globulin Ratio 1.2 Urine Opiates Screen Positive H Urine Methadone Screen Negative Ur Barbiturates Screen Negative Ur Phencyclidine Scrn Negative Ur Amphetamines Screen Negative U Benzodiazepines Scrn Negative U Oth Cocaine Metabols Negative U Cannabinoids Screen Negative 10/16/18 10/16/18 10/16/18 10:58 10:59 11:49 WBC RBC Hgb Hct MCV MCH MCHC RDW Plt Count MPV Neut % (Auto) Lymph % (Auto) [place] % (Auto) Eos % (Auto) Baso % (Auto) Neut # (Auto) Lymph # (Auto) [place] # (Auto) Eos # (Auto) Baso # (Auto) Sodium Potassium Chloride Carbon Dioxide Anion Gap BUN Creatinine Est GFR ( Amer) Est GFR (Non-Af Amer) POC Glucose (mg/dL) 68 71 159 H Random Glucose Calcium Phosphorus Magnesium Total Bilirubin AST ALT Alkaline Phosphatase Total Protein Albumin Globulin Albumin/Globulin Ratio Urine Opiates Screen Urine Methadone Screen Ur Barbiturates Screen Ur Phencyclidine Scrn Ur Amphetamines Screen U Benzodiazepines Scrn U Oth Cocaine Metabols U Cannabinoids Screen 10/16/18 17:04 WBC RBC Hgb Hct MCV MCH MCHC RDW Plt Count MPV Neut % (Auto) Lymph % (Auto) [place] % (Auto) Eos % (Auto) Baso % (Auto) Neut # (Auto) Lymph # (Auto) [place] # (Auto) Eos # (Auto) Baso # (Auto) Sodium Potassium Chloride Carbon Dioxide Anion Gap BUN Creatinine Est GFR ( Amer) Est GFR (Non-Af Amer) POC Glucose (mg/dL) 130 H Random Glucose Calcium Phosphorus Magnesium Total Bilirubin AST ALT Alkaline Phosphatase Total Protein Albumin Globulin Albumin/Globulin Ratio Urine Opiates Screen Urine Methadone Screen Ur Barbiturates Screen Ur Phencyclidine Scrn Ur Amphetamines Screen U Benzodiazepines Scrn U Oth Cocaine Metabols U Cannabinoids Screen Assessment & Plan (1) Protein S deficiency Assessment and Plan: with stated recurrent CVA lifelong therapeutic anticoagulation outpatient f/u with primary supervisor pumping Thank you for this interesting consult. Status: Acute (2) Protein C deficiency Status: Chronic
[2018-10-17] MEDS: HYDROmorphone 0.5 mg/0.5 ml ISec IVP PRN ×5 (05:50→21:56)
[2018-10-17 06:25] LABS: BASO # 0.1 K/uL (0.0-0.2); BASO % 1.1 % (0.0-2.0); EOS # 0.3 K/uL (0.0-0.7); EOS % 2.7 % (0.0-4.0); HEMOGLOBIN 13.2 g/dL (11.0-16.0); LYMPH % 20.7 % (20.0-40.0); MEAN CELL VOLUME 84.7 fL (81.0-99.0); MEAN CORPUSCULAR HEMOGLOBIN 27.5 pg (27.0-31.0); MEAN CORPUSCULAR HGB CONC 32.4 g/dL (33.0-37.0); MEAN PLATELET VOLUME 8.1 fL (7.2-11.7); MONO # 0.7 K/uL (0.0-0.8); MONO % 7.1 % (0.0-10.0); NEUT # 6.5 K/uL (1.8-7.0); NEUT % 68.4 % (50.0-75.0); NRBC % 0.1 % (0.0-2.0); RBC 4.8 Mil/uL (3.80-5.20); RED CELL DISTRIBUTION WIDTH 14.7 % (11.5-14.5); WHITE BLOOD COUNT 9.6 K/uL (4.8-10.8)
[2018-10-17 06:49] LABS: ALB/GLOB RATIO 1.1 (1.0-2.1); ALBUMIN 3.7 g/dL (3.5-5.0); ALT/SGPT 12 U/L (9-52); AST/SGOT 21 U/L (14-36); BLOOD UREA NITROGEN 12 mg/dL (7-17); CALCIUM 8.4 mg/dl (8.6-10.4); GFR NON-AFRICAN AMERICAN > 60
--- NOTE | 2018-10-17 18:03 | CP.PCM.PN ---
Subjective - Date & Time of Evaluation Date of Evaluation: 10/17/18 Time of Evaluation: 10:00 - Subjective Subjective: clinically same Objective - Vital Signs/Intake and Output Vital Signs (last 24 hours): Temp Pulse Resp BP Pulse Ox 98.1 F 72 15 105/59 L 95 10/17/18 04:00 10/17/18 04:00 10/17/18 04:00 10/17/18 04:00 10/17/18 04:00 Intake and Output: 10/17/18 10/17/18 06:59 18:59 Intake Total 450 Output Total 600 Balance -150 - Medications Medications: Current Medications Acetaminophen (Tylenol 325mg Tab) 650 mg PO Q6 PRN PRN Reason: Pain, Mild (1-3) Apixaban (Eliquis) 5 mg PO Q12 [facility] Last Admin: 10/17/18 10:21 Dose: 5 mg Gabapentin (Neurontin) 300 mg PO TID [facility] Last Admin: 10/17/18 14:23 Dose: 300 mg Hydromorphone HCl (Dilaudid) 0.5 mg IVP Q4H PRN PRN Reason: Pain, severe (8-10) Last Admin: 10/17/18 14:23 Dose: 0.5 mg Rosuvastatin Calcium (Crestor) 5 mg PO HS [facility] Last Admin: 10/16/18 21:42 Dose: 5 mg Topiramate (Topamax) 150 mg PO BID [facility] Last Admin: 10/17/18 10:21 Dose: 150 mg - Labs Labs: 10/17/18 06:17 10/17/18 06:17 PT 11.5 SECONDS (9.7-12.2) 10/14/18 17:21 INR 1.1 10/14/18 17:21 APTT 32 SECONDS (21-34) 10/14/18 17:21 - Constitutional Appears: Well - Head Exam Head Exam: ATRAUMATIC, NORMAL INSPECTION, NORMOCEPHALIC - Eye Exam Eye Exam: EOMI, Normal appearance, PERRL Pupil Exam: NORMAL ACCOMODATION, PERRL - ENT Exam ENT Exam: Mucous Membranes Moist, Normal Exam - Neck Exam Neck Exam: Full ROM, Normal Inspection. absent: Lymphadenopathy - Respiratory Exam Respiratory Exam: Decreased Breath Sounds - Cardiovascular Exam Cardiovascular Exam: REGULAR RHYTHM, +S1, +S2 - GI/Abdominal Exam GI & Abdominal Exam: Soft, Diminished Bowel Sounds - Rectal Exam Rectal Exam: Deferred
[2018-10-17 18:50] VITALS: RESP 20
--- NOTE | 2018-10-17 21:34 | CP.PCM.PN ---
Subjective - Date & Time of Evaluation Date of Evaluation: 10/17/18 Time of Evaluation: 18:00 - Subjective Subjective: Has headache Objective - Vital Signs/Intake and Output Vital Signs (last 24 hours): Temp Pulse Resp BP Pulse Ox 98 F 88 20 107/73 98 10/17/18 16:40 10/17/18 16:40 10/17/18 16:40 10/17/18 16:40 10/17/18 16:40 - Medications Medications: Current Medications Acetaminophen (Tylenol 325mg Tab) 650 mg PO Q6 PRN PRN Reason: Pain, Mild (1-3) Apixaban (Eliquis) 5 mg PO Q12 [facility] Last Admin: 10/17/18 10:21 Dose: 5 mg Gabapentin (Neurontin) 300 mg PO TID [facility] Last Admin: 10/17/18 18:06 Dose: 300 mg Hydromorphone HCl (Dilaudid) 0.5 mg IVP Q4H PRN PRN Reason: Pain, severe (8-10) Last Admin: 10/17/18 18:07 Dose: 0.5 mg Rosuvastatin Calcium (Crestor) 5 mg PO HS [facility] Last Admin: 10/16/18 21:42 Dose: 5 mg Topiramate (Topamax) 150 mg PO BID [facility] Last Admin: 10/17/18 18:06 Dose: 150 mg - Labs Labs: 10/17/18 06:17 10/17/18 06:17 PT 11.5 SECONDS (9.7-12.2) 10/14/18 17:21 INR 1.1 10/14/18 17:21 APTT 32 SECONDS (21-34) 10/14/18 17:21 - Head Exam Head Exam: ATRAUMATIC - Eye Exam Eye Exam: Normal appearance - ENT Exam ENT Exam: Mucous Membranes Dry - Respiratory Exam Respiratory Exam: NORMAL BREATHING PATTERN - Cardiovascular Exam Cardiovascular Exam: +S1, +S2 - GI/Abdominal Exam GI & Abdominal Exam: Normal Bowel Sounds Assessment and Plan (1) Protein S deficiency Assessment & Plan: with stated recurrent CVA lifelong therapeutic anticoagulation 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
[2018-10-18] MEDS: HYDROmorphone 0.5 mg/0.5 ml ISec IVP PRN ×5 (02:21→19:00)
[2018-10-18 08:25] LABS: BASO # 0.1 K/uL (0.0-0.2); BASO % 0.7 % (0.0-2.0); EOS # 0.3 K/uL (0.0-0.7); EOS % 3.3 % (0.0-4.0); HEMOGLOBIN 14.6 g/dL (11.0-16.0); LYMPH # 2.2 K/uL (1.0-4.3); LYMPH % 29.3 % (20.0-40.0); MEAN CORPUSCULAR HEMOGLOBIN 28.1 pg (27.0-31.0); MEAN CORPUSCULAR HGB CONC 34.1 g/dL (33.0-37.0); MEAN PLATELET VOLUME 8.5 fL (7.2-11.7); MONO # 0.6 K/uL (0.0-0.8); NEUT # 4.4 K/uL (1.8-7.0); NEUT % 58.7 % (50.0-75.0); NRBC % 0.1 % (0.0-2.0); RBC 5.21 Mil/uL (3.80-5.20); RED CELL DISTRIBUTION WIDTH 14.5 % (11.5-14.5); WHITE BLOOD COUNT 7.6 K/uL (4.8-10.8)
[2018-10-18 08:27] LABS: MEAN CELL VOLUME 82.3 fL (81.0-99.0)
[2018-10-18 08:34] LABS: ALB/GLOB RATIO 1.3 (1.0-2.1); ALBUMIN 4.1 g/dL (3.5-5.0); ALT/SGPT 13 U/L (9-52); AST/SGOT 12 U/L (14-36); BLOOD UREA NITROGEN 16 mg/dL (7-17); CALCIUM 8.8 mg/dl (8.6-10.4); GFR NON-AFRICAN AMERICAN > 60
[2018-10-18 09:20] VITALS: TEMP 98.3
--- NOTE | 2018-10-18 12:17 | CP.PCM.PN ---
Subjective - Date & Time of Evaluation Date of Evaluation: 10/18/18 Time of Evaluation: 10:00 - Subjective Subjective: clinically same Objective - Vital Signs/Intake and Output Vital Signs (last 24 hours): Temp Pulse Resp BP Pulse Ox 98.3 F 67 20 107/69 96 10/18/18 07:00 10/18/18 07:00 10/18/18 07:00 10/18/18 07:00 10/18/18 07:00 - Medications Medications: Current Medications Acetaminophen (Tylenol 325mg Tab) 650 mg PO Q6 PRN PRN Reason: Pain, Mild (1-3) Apixaban (Eliquis) 5 mg PO Q12 [facility] Last Admin: 10/18/18 09:59 Dose: 5 mg Gabapentin (Neurontin) 300 mg PO TID [facility] Last Admin: 10/18/18 10:00 Dose: 300 mg Hydromorphone HCl (Dilaudid) 0.5 mg IVP Q4H PRN PRN Reason: Pain, severe (8-10) Last Admin: 10/18/18 10:58 Dose: 0.5 mg Rosuvastatin Calcium (Crestor) 5 mg PO HS [facility] Last Admin: 10/17/18 21:52 Dose: 5 mg Topiramate (Topamax) 150 mg PO BID [facility] Last Admin: 10/18/18 10:00 Dose: 150 mg - Labs Labs: 10/18/18 08:07 10/18/18 08:07 PT 11.5 SECONDS (9.7-12.2) 10/14/18 17:21 INR 1.1 10/14/18 17:21 APTT 32 SECONDS (21-34) 10/14/18 17:21 - Constitutional Appears: Well - Head Exam Head Exam: ATRAUMATIC, NORMAL INSPECTION, NORMOCEPHALIC - Eye Exam Eye Exam: EOMI, Normal appearance, PERRL Pupil Exam: NORMAL ACCOMODATION, PERRL - ENT Exam ENT Exam: Mucous Membranes Moist, Normal Exam - Neck Exam Neck Exam: Full ROM, Normal Inspection. absent: Lymphadenopathy - Respiratory Exam Respiratory Exam: Decreased Breath Sounds - Cardiovascular Exam Cardiovascular Exam: REGULAR RHYTHM, +S1, +S2 - GI/Abdominal Exam GI & Abdominal Exam: Soft, Diminished Bowel Sounds - Rectal Exam Rectal Exam: Deferred
[2018-10-18 19:18] VITALS: BP 137/76; PULSE 93; O2SAT 99
--- NOTE | 2018-10-19 07:41 | CP.PCM.PN ---
Subjective - Date & Time of Evaluation Date of Evaluation: 10/18/18 Time of Evaluation: 22:00 - Subjective Subjective: AMA note Patient has decided to leave hospital against medical advice. The patient is competent and understands the risks of leaving, including deconditioning, heart and respiratory arrest, demise and . Patient accepts all risk and liability. Paperwork filled. Attending to be notified by RN. The patient has been informed that he/she may return for care at anytime. Objective - Vital Signs/Intake and Output Vital Signs (last 24 hours): Temp Pulse Resp BP Pulse Ox 98.3 F 93 H 20 137/76 99 10/18/18 19:17 10/18/18 19:17 10/18/18 19:17 10/18/18 19:17 10/18/18 19:17 - Labs Labs: 10/18/18 08:07 10/18/18 08:07 PT 11.5 SECONDS (9.7-12.2) 10/14/18 17:21 INR 1.1 10/14/18 17:21 APTT 32 SECONDS (21-34) 10/14/18 17:21 - Constitutional Appears: Non-toxic, No Acute Distress - Head Exam Head Exam: ATRAUMATIC, NORMAL INSPECTION, NORMOCEPHALIC - Eye Exam Eye Exam: EOMI, Normal appearance - ENT Exam ENT Exam: Mucous Membranes Moist, Normal Exam - Neck Exam Neck Exam: Normal Inspection - Respiratory Exam Respiratory Exam: NORMAL BREATHING PATTERN - Cardiovascular Exam Cardiovascular Exam: REGULAR RHYTHM - Extremities Exam Extremities Exam: Full ROM, Normal Inspection - Back Exam Back Exam: Full ROM, NORMAL INSPECTION - Neurological Exam Neurological Exam: Alert, Awake, Oriented x3 - Skin Skin Exam: Normal Color
--- NOTE | 2018-10-20 18:18 | CP.PCM.PN ---
Subjective - Date & Time of Evaluation Date of Evaluation: 10/18/18 Time of Evaluation: 12:00 - Subjective Subjective: Has headache. Objective - Vital Signs/Intake and Output Vital Signs (last 24 hours): Temp Pulse Resp BP Pulse Ox 98.3 F 93 H 20 137/76 99 10/18/18 19:17 10/18/18 19:17 10/18/18 19:17 10/18/18 19:17 10/18/18 19:17 - Labs Labs: 10/18/18 08:07 10/18/18 08:07 PT 11.5 SECONDS (9.7-12.2) 10/14/18 17:21 INR 1.1 10/14/18 17:21 APTT 32 SECONDS (21-34) 10/14/18 17:21 - Head Exam Head Exam: ATRAUMATIC - Eye Exam Eye Exam: Normal appearance - ENT Exam ENT Exam: Mucous Membranes Dry - Respiratory Exam Respiratory Exam: NORMAL BREATHING PATTERN - Cardiovascular Exam Cardiovascular Exam: +S1, +S2 - GI/Abdominal Exam GI & Abdominal Exam: Normal Bowel Sounds Assessment and Plan (1) Protein S deficiency Assessment & Plan: with stated recurrent CVA lifelong therapeutic anticoagulation 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
== END 2018-10-18 23:04 | disposition left against medical advice (07) | DRG 832 ==
LOC: C.ER 16:45 → C.9I 18:25 → C.6T 10-17 17:07
PROVIDERS: ADMIT Internal Medicine Nephrology; ATTEND Internal Medicine Nephrology
PROC: 3E03317 Introduction of Other Thrombolytic into Peripheral Vein, Percutaneous Approach (ICD-10-PCS; principal; 2018-10-14)
PROC: GZHZZZZ Group Psychotherapy (ICD-10-PCS; 2018-10-16)
PROC: GZ56ZZZ Individual Psychotherapy, Supportive (ICD-10-PCS; 2018-10-16)
DX: G45.9 Transient cerebral ischemic attack, unspecified (principal); D57.1 Sickle-cell disease without crisis; F11.20 Opioid dependence, uncomplicated; F14.20 Cocaine dependence, uncomplicated; F20.9 Schizophrenia, unspecified; D68.59 Other primary thrombophilia; I31.9 Disease of pericardium, unspecified; R29.810 Facial weakness; G81.94 Hemiplegia, unspecified affecting left nondominant side; E78.00 Pure hypercholesterolemia, unspecified; F31.9 Bipolar disorder, unspecified; F41.9 Anxiety disorder, unspecified; G40.909 Epilepsy, unspecified, not intractable, without status epilepticus; I10 Essential (primary) hypertension; I25.10 Atherosclerotic heart disease of native coronary artery without angina pectoris; F17.210 Nicotine dependence, cigarettes, uncomplicated; I25.2 Old myocardial infarction; Z91.5 Personal history of self-harm; Z91.14 Patient's other noncompliance with medication regimen; E11.9 Type 2 diabetes mellitus without complications; Z76.5 Malingerer [conscious simulation]

== ENCOUNTER 2018-10-19 21:55 | Emergency (ER) | payer MEDICAID ==
[2018-10-19 21:55] VITALS: BMI 24.7
[2018-10-19] MEDS ORDERED: Sodium Chloride 0.9% 1,000 ML IV ONE (22:41)
--- NOTE | 2018-10-19 22:53 | C.PDOC ---
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 Patient was discharged from ICU for similar complaint. Patient has Hx of possible CVA with left sided weakness. Denies SOB, nausea, or vo miting. Chief Complaint (Nursing): Chest Pain History Per: Patient History/Exam Limitations: no limitations Onset/Duration Of Symptoms: Hrs Current Symptoms Are (Timing): Still Present Associated Symptoms: denies: Nausea, Dyspnea, Other (vomiting) Modifying Factors: None Exacerbating Factors: None Recent travel outside of the [place]: No Past Medical History Reviewed: Historical Data, Nursing Documentation, Vital Signs Vital Signs: Last Vital Signs Temp 98.2 F 10/19/18 22:01 Pulse 89 10/19/18 22:11 Resp 18 10/19/18 22:01 BP 114/64 10/19/18 22:11 Pulse Ox 100 10/19/18 22:01 - Medical History PMH: Anemia, Anxiety, Arthritis, Asthma, Back Problems, CAD, CVA (x 3, Protein C/S deficiency), Depression, Deep Vein Thrombosis, HTN, Hypercholesterolemia, Hyperlipidemia, Migraine, Schizophrenia, Seizures, Sickle Cell Disease, TIA, Chronic Pain Denies: Diabetes, Hepatitis, HIV, Chronic Kidney Disease, Sexually Transmitted Disease - [facility] Procedures INJECT/INFUSE NEC (02/07/15) MONITORING OF POC, CARDIAC RATE, DIRECTOR OF FINANCIAL REPORTING APPROACH (11/22/15) TETANUS TOXOID ADMINIST (10/26/13) Family History: States: OK - Social History Hx Tobacco Use: Yes (light smoker) Hx Alcohol Use: Yes Hx Substance Use: Yes - Immunization History Hx Tetanus Toxoid Vaccination: No Hx Influenza Vaccination: No Hx Pneumococcal Vaccination: No Review Of Systems Constitutional: Negative for: Fever, Chills Cardiovascular: Positive for: Chest Pain. Negative for: Palpitations Respiratory: Negative for: Cough, Shortness of Breath Gastrointestinal: Negative for: Nausea, Vomiting Neurological: Negative for: Weakness, Numbness Physical Exam - Physical Exam Appears: Non-toxic, Other (Alert, Conscious) Skin: Normal Color, Warm, Dry Head: Atraumatic, Normacephalic Eye(s): bilateral: Normal Inspection Nose: Normal Oral Mucosa: Moist Neck: Normal, Supple Chest: Symmetrical, Tenderness (Left anterior area) Cardiovascular: Rhythm Regular Respiratory: Normal Breath Sounds, No Rales, No Rhonchi, No Wheezing Gastrointestinal/Abdominal: Soft, No Tenderness Back: No CVA Tenderness Extremity: Normal ROM (x4) Neurological/Psych: Oriented x3, Normal Speech, Other (No focal deficits) Gait: Steady ED Course And Treatment - Laboratory Results Result Diagrams: 10/19/18 23:31 12 23:31 ECG: Interpreted By Me, Viewed By Me ECG Rhythm: Sinus Rhythm ECG Interpretation: Normal, No Acute Changes Interpretation Of ECG: Sinus rhythm with sinus arrythmia, no acute changes, normal tracings. Rate From EC O2 Sat by Pulse Oximetry: 100 (room air) Pulse Ox Interpretation: Normal - Radiology CXR: Interpreted by Me, Viewed By Me CXR Interpretation: Yes: No Acute Disease, Other (nomal chest film). No: Infiltrates, Heart Size Progress Note: EKG, blood work, CXR, and urinalysis ordered. IV fluids administered. Patient requesting detox, no detox beds available, patient see by crisis and given referral for outpatient detox. Disposition Counseled Patient/Family Regarding: Diagnosis - Disposition Referrals: [facility] [Outside] Disposition: HOME/ ROUTINE Disposition Time: 00:45 Condition: STABLE Prescriptions: Acetaminophen [Tylenol 325mg tab] 650 mg PO Q4 #20 tab Instructions: Chest Pain That Is Not Caused by the Heart (DC), Costochondritis (DC), Polysubstance Abuse Forms: [facility] (Swedish) - POA Present On Arrival: None - Clinical Impression Clinical Impression: Substance abuse, Chest wall pain - Scribe Statement The provider has reviewed the documentation as recorded by the Scribjoselyn Mcnair All medical record entries made by the Scribjoselyn were at my direction and personally dictated by me. I have reviewed the chart and agree that the record accurately reflects my personal performance of the history, physical exam, medical decision making, and the department course for this patient. I have also personally directed, reviewed, and agree with the discharge instructions and disposition.
[2018-10-19 23:22] LABS: BARBITURATES, UR NEGATIVE (NEGATIVE); BENZODIAZEPINES, UR NEGATIVE (NEGATIVE); PHENCYCLIDINE, UR NEGATIVE (NEGATIVE)
[2018-10-19 23:27] LABS: OPIATES, UR POSITIVE (NEGATIVE)
[2018-10-19 23:36] LABS: BASO # 0.1 K/uL (0.0-0.2); BASO % 1.1 % (0.0-2.0); EOS # 0.1 K/uL (0.0-0.7); EOS % 0.8 % (0.0-4.0); HEMOGLOBIN 14.6 g/dL (11.0-16.0); LYMPH # 2.6 K/uL (1.0-4.3); LYMPH % 23.8 % (20.0-40.0); MEAN CELL VOLUME 82.7 fL (81.0-99.0); MEAN CORPUSCULAR HEMOGLOBIN 27.4 pg (27.0-31.0); MEAN CORPUSCULAR HGB CONC 33.1 g/dL (33.0-37.0); MEAN PLATELET VOLUME 8.2 fL (7.2-11.7); MONO # 0.8 K/uL (0.0-0.8); MONO % 7.1 % (0.0-10.0); NEUT # 7.3 K/uL (1.8-7.0); NEUT % 67.2 % (50.0-75.0); NRBC % 0.2 % (0.0-2.0); RBC 5.34 Mil/uL (3.80-5.20); RED CELL DISTRIBUTION WIDTH 14.7 % (11.5-14.5); WHITE BLOOD COUNT 10.9 K/uL (4.8-10.8)
[2018-10-19 23:43] LABS: D DIMER < 200 ng/mlDDU (0-243); INR 1.1; PARTIAL THROMBOPLASTIN TIME 31 SECONDS (21-34)
[2018-10-19 23:49] LABS: ALB/GLOB RATIO 1.2 (1.0-2.1); ALBUMIN 4.1 g/dL (3.5-5.0); ALT/SGPT 14 U/L (9-52); AST/SGOT 16 U/L (14-36); BLOOD UREA NITROGEN 20 mg/dL (7-17); CALCIUM 8.8 mg/dl (8.6-10.4); GFR NON-AFRICAN AMERICAN > 60
[2018-10-20 01:06] VITALS: BP 120/62; PULSE 75; RESP 20; TEMP 98.2; O2SAT 99
--- NOTE | 2018-10-20 02:06 | PCM.PSYCH ---
Initial Psychiatric Evaluation - Initial Psychiatric Evaluation Type of Admission: Voluntary Legal Status: Capacity Chief Complaint (in patient's own words): I came to the hospital as i had chest pain.' History of Present Illness and Precipitating Events: Patient is a 28 year old female who is currently in a relationship, lives with her mom, unemployed, and came to the hospital for chest pain and left sided weakness. She states that she has been hospitalized multiple times in the past before for similar symptoms. She states that she struggles with drug abuse. She currently abuses methamphetamine, crack cocaine, and heroin. She has been using crack cocaine for 10 years, and methamphetamine and heroin for a couple of months. She last abused crack cocaine and heroin 3 days ago. She uses heroin through injection or through sniffing. She states that she only gets auditory and visual hallucinations when she is abusing drugs. When she's not abusing drugs, she gets diarrhea. She denies abusing alcohol. She states that she's been smoking a pack of cigarettes a day for 15 years. She denies marijuana use. When she doesn't use drugs she gets diarrhea. She denies feeling depressed or wanting to hurt herself or others. She has tried to kill herself in the past by slicing her wrists. She often gets episodes of high energy. She denies having racing thoughts. She's seen a therapist several years ago but states that it didn't help her. Past Psych History: Schizophrenia, Bipolar Disorder, Depression Past Family Psych History: Father abuses alcohol. Multiple family members have schizophrenia and bipolar disorder. (she didn't state who exactly) Past Medical History: Sickle Cell Anemia. Episodes of low blood sugar. Medications: Topamax, Eliquis, Gabapentin, Remeron, Atarax Assessment: Opioid Use Disorder. Cocaine Use Disorder Past Psychiatric History - Past Psychiatric History Previous Treatment History: Inpatient Pertinent Medical Hx (Current Medical&Sleep Prob, Allergies): Allergies Allergy/AdvReac Type Severity Reaction Status Date / Time ketorolac tromethamine Allergy Mild SWELLING Verified 10/19/18 22:08 [From Toradol] naproxen [From Naprosyn] Allergy Mild URTICARIA Verified 10/19/18 22:08 polyethylene glycol 3350 Allergy Mild RASH Verified 10/19/18 22:08 [From Miralax] shellfish derived Allergy Mild ANAPHYLAXIS Verified 12/10/18 22:08 mushroom Allergy ANAPHYLAXIS Verified 10/19/18 22:08 ibuprofen [From Motrin] AdvReac Mild vomiting Verified 10/19/18 22:08 blood PORK AdvReac DIARRHEA Verified 10/19/18 22:08 nguyen Allergy Severe RASH Uncoded 07/17/18 22:20 Aspirin [Adult Aspirin] 81 mg PO DAILY 10/14/18 Acetaminophen [Tylenol 325mg tab] 650 mg PO Q4 #20 tab 10/20/18 Review of Systems - Review of Systems All systems: reviewed and no additional remarkable complaints except - Psychiatric Psychiatric: Anxiety, Irritability. absent: Suicidal Ideation Mental Status Examination - Personal Presentation Personal Presentation: Looks stated age - Affect Affect: Constricted - Motor Activity Motor Activity: Calm - Reliability in Providing Information Reliability in Providing Information: Fair - Speech Speech: Organized - Mood Mood: Anxious - Formal Thought Process Formal Thought Process: No Impairment - Obsessions/Compulsions Obsessions: No Compulsions: No - Cognitive Functions Orientation: Person, Place, Situation, Time Sensorium: Alert Attention/Concentration: Easily distracted Abstract Thinking: [place] Estimate of Intelligence: Below average Judgement: Imparied, as evidence by: Poor judgement, Intact, as evidence by: Insight regarding need for hospitalization - Risk Risk: Diminished functioning - Limitations Limitations: Living alone DSM 5 DX - DSM 5 DSM 5 Diagnosis: Cocaine use disorder severe Opioid use disorder severe Bipolar disorder moderate - Recommended/Plan of Treatment Treatment Recommendations and Plan of Treatment: Cocaine use disorder severe Opioid use disorder severe Bipolar disorder moderate Supportive therapy Individual therapy Psych evaluation Patient will resume her medications Patient psychiatrically stable and cleared for discharge - Smoking Cessation Smoking Cessation Initiated: No
--- NOTE | 2018-10-20 10:36 | RAD ---
HISTORY: chest pain COMPARISON: Chest x-ray performed 10/14/18 TECHNIQUE: Chest PA and lateral FINDINGS: LUNGS: No focal consolidation. Please note that chest x-ray has limited sensitivity for the detection of pulmonary masses. PLEURA: No significant pleural effusion identified. No definite pneumothorax . CARDIOVASCULAR: Heart size appears within normal limits. No atherosclerotic calcification present. OSSEOUS STRUCTURES: No acute osseous abnormality identified. VISUALIZED UPPER ABDOMEN: Unremarkable. OTHER FINDINGS: None. IMPRESSION: No focal consolidation identified.
--- NOTE | 2018-10-20 21:48 | CARD ---
APPROVED REPORT Date of service: 10/19/2018 EKG Measurement Heart [id number] <Conclusion> Sinus rhythm with marked sinus arrhythmia Otherwise normal ECG
== END 2018-10-20 01:09 | disposition home or self-care (01) ==
LOC: C.ER 21:55
DX: R07.89 Other chest pain (principal); F19.10 Other psychoactive substance abuse, uncomplicated
CPT/HCPCS: 71046; 80053; 80320; 80324; 80345; 80346; 80349; 80353; 80358; 80361; 82948; 83992; 84484; 84703; 85025; 85378; 85610; 85730; 93005; 99285; J7030

== ENCOUNTER 2018-12-20 23:44 | Emergency (ER) | payer MEDICAID ==
[2018-12-20 23:44] VITALS: BMI 24.7
[2018-12-21 00:04] VITALS: BP 120/73; O2SAT 99
--- NOTE | 2018-12-21 00:34 | C.PDOC ---
History Of Present Illness 28 year old female presents to the ED for evaluation of redness, swelling and localized tenderness to her left leg. Patient has a history of heroin abuse and states she has been injecting in that area. She denies fever, chills, suicidal/homicidal ideation. Chief Complaint (Nursing): Lower Extremity Problem/Injury History Per: Patient History/Exam Limitations: no limitations Onset/Duration Of Symptoms: Hrs Current Symptoms Are (Timing): Still Present Additional History Per: Patient Past Medical History Reviewed: Historical Data, Nursing Documentation, Vital Signs Vital Signs: Last Vital Signs Temp 98.5 F 12/21/18 00:00 Pulse 81 12/21/18 00:00 Resp 18 12/21/18 00:00 BP 120/73 12/21/18 00:00 Pulse Ox 99 12/21/18 00:00 - Medical History PMH: Anemia, Anxiety, Arthritis, Asthma, Back Problems, CAD, CVA (x 3, Protein C/S deficiency), Depression, Deep Vein Thrombosis, HTN, Hypercholesterolemia, Hyperlipidemia, Migraine, Schizophrenia, Seizures, Sickle Cell Disease, TIA, Chronic Pain Denies: Diabetes, Hepatitis, HIV, Chronic Kidney Disease, Sexually Transmitted Disease Surgical History: No Surg Hx - [facility] Procedures GROUP PSYCHOTHERAPY (10/14/18) INDIVIDUAL PSYCHOTHERAPY, SUPPORTIVE (10/14/18) INJECT/INFUSE NEC (02/07/15) INTRODUCE OTH THROMBOLYTIC IN PERIPH VEIN, PERC (10/14/18) MONITORING OF POC, CARDIAC RATE, NECKTIE STITCHER APPROACH (11/22/15) TETANUS TOXOID ADMINIST (10/26/13) Family History: States: [place] - Social History Hx Tobacco Use: Yes (light smoker) Hx Alcohol Use: Yes Hx Substance Use: Yes - Immunization History Hx Tetanus Toxoid Vaccination: No Hx Influenza Vaccination: No Hx Pneumococcal Vaccination: No Review Of Systems Constitutional: Negative for: Fever, Chills Skin: Positive for: Other (redness, swelling and tenderness to left leg ) Physical Exam - Physical Exam Appears: Non-toxic, No Acute Distress Skin: Normal Color, Warm, Dry, Other (erythema to left lower extremity. no fluctuance or abscess formation ) Head: Atraumatic, Normacephalic Eye(s): bilateral: Normal Inspection Oral Mucosa: Moist Neck: Supple Chest: Symmetrical, No Deformity Cardiovascular: Rhythm Regular, No Murmur Respiratory: Normal Breath Sounds, No Rales, No Rhonchi, No Wheezing Extremity: Tenderness (mild, to left lower extremity ), Capillary Refill (less than 2 seconds ), No Deformity Neurological/Psych: Oriented x3, Normal Speech, Normal Cognition ED Course And Treatment O2 Sat by Pulse Oximetry: 99 (on RA ) Pulse Ox Interpretation: Normal Progress Note: Tylenol PO and Cleocin PO given. Disposition Counseled Patient/Family Regarding: Diagnosis - Disposition Referrals: Non [facility] Provider, [Primary Care Provider] - [facility] [Outside] Disposition: HOME/ ROUTINE Disposition Time: 00:35 Condition: STABLE Prescriptions: Clindamycin [Cleocin] 300 mg PO TID #30 cap Instructions: Skin Abscess Forms: [employer] (Amharic) - POA Present On Arrival: None - Clinical Impression Clinical Impression: Skin infection, Drug abuse - Scribe Statement The provider has reviewed the documentation as recorded by the Scribe (Barbie Meza) Provider Attestation: All medical record entries made by the Scribe were at my direction and personally dictated by me. I have reviewed the chart and agree that the record accurately reflects my personal performance of the history, physical exam, medical decision making, and the department course for this patient. I have also personally directed, reviewed, and agree with the discharge instructions and disposition.
[2018-12-21 00:58] VITALS: PULSE 96; RESP 17; TEMP 98
== END 2018-12-21 00:55 | disposition home or self-care (01) ==
LOC: C.ER 23:44 → SUPCPDRO 23:44 → C.ER 12-21 00:55
DX: L08.9 Local infection of the skin and subcutaneous tissue, unspecified (principal); F19.10 Other psychoactive substance abuse, uncomplicated; E78.00 Pure hypercholesterolemia, unspecified; F20.9 Schizophrenia, unspecified; I10 Essential (primary) hypertension; I25.10 Atherosclerotic heart disease of native coronary artery without angina pectoris; E78.5 Hyperlipidemia, unspecified; Z86.73 Personal history of transient ischemic attack (TIA), and cerebral infarction without residual deficits; F17.200 Nicotine dependence, unspecified, uncomplicated

== ENCOUNTER 2019-03-13 00:05 | Emergency (ER) | payer OTHER, MEDICAID ==
[2019-03-13 00:06] VITALS: BMI 28.3
[2019-03-13 00:24] VITALS: BP 122/77; PULSE 81; RESP 22; TEMP 98.2; O2SAT 99
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
== END 2019-03-13 00:47 | disposition home or self-care (01) ==
LOC: C.ER 00:05
DX: O26.891 Other specified pregnancy related conditions, first trimester (principal); R10.30 Lower abdominal pain, unspecified; Z3A.01 Less than 8 weeks gestation of pregnancy